=== PATIENT | male | born 1960 | race African-American/Black ===

== ENCOUNTER 2017-12-17 22:35 | Inpatient (IN) | payer OTHER, MEDICAID, SELFPAY ==
[2017-12-17 22:46] VITALS: BP 156/93; PULSE 99; RESP 16; TEMP 37.1; O2SAT 100
--- NOTE | 2017-12-17 23:35 | DI.RAD.S_ITS ---
PROCEDURE: XR ACUTE ABDOMEN SERIES INDICATIONS: Abdominal pain TECHNIQUE: One view chest and two views of the abdomen were acquired. COMPARISON: [facility], CT, CT ANGIO CHEST PE PROTOCOL, 12/18/2017, 2:54. FINDINGS: Surgical changes and devices: None. Chest: Focal pulmonary radiopacities are present bilaterally at the costophrenic sulci, more confluent on the right than on the left. Abdomen: Bowel gas pattern is normal. No suspicious calcifications. Visualized solid organ contours appear normal. Bones: No suspicious bony lesions. IMPRESSION: Bilateral basilar pulmonary radiopacities on the more confluent on the right. These findings are suspicious for infection, aspiration, or atelectasis. Dictated by: Aleisha Singleton M.D. on 12/18/2017 at 8:06 Approved by: Aleisha Singleton M.D. on 12/18/2017 at 8:07
[2017-12-18] VITALS (27 sets, daily range): BP systolic 130–170; BP diastolic 74–99; PULSE 76–125; RESP 18–46; TEMP 37.2–37.5; O2SAT 85–100; BMI 23.0
[2017-12-18] MEDS: ONDANSETRON 4 MG/2 ML INJ IV (00:05)
[2017-12-18] MEDS: SODIUM CHLORIDE 0.9% 1,000 ML 150 ML IV ×4 (00:05→21:58)
[2017-12-18] MEDS: HYDROMORPHONE 0.5 MG INJ IV ×2 (00:05→06:14)
--- NOTE | 2017-12-18 00:25 | DI.CT.S_ITS ---
PROCEDURE: CT ABDOMEN PELVIS W CON INDICATIONS: severe R sided abdominal pain, guarding TECHNIQUE: After the administration of intravenous contrast, 5 mm thick sections acquired from the diaphragm to the symphysis. 5 mm coronal and sagittal reformats were acquired. For radiation dose reduction, the following was used: automated exposure control, adjustment of mA and/or kV according to patient size. COMPARISON: [facility], CT, CT ANGIO CHEST PE PROTOCOL, 12/18/2017, 2:54. FINDINGS: Image quality: Excellent. ABDOMEN: Lung bases: Focal consolidation is present at the right lung base, superimposed on underlying emphysematous changes. A 4 mm pulmonary nodule is also present at the medial right lung base (series 3, image 3). Probable platelike atelectasis is present at the left lung base. These findings correspond to the chest x-ray findings dated 12/17/17. No pleural effusion. Heart is normal size. Please see detailed description of the pulmonary arterial findings on the associated CT pulmonary arteriogram. Solid organs: Liver is normal in size and enhancement. Multiple heterogeneous gallstones are present within the gallbladder fundus suggesting the presence of cholesterol stones. No gallbladder wall thickening or pericholecystic fluid. Biliary system is non dilated. Pancreas enhances normally. Spleen is normal in size and enhancement. No adrenal nodules. Kidneys demonstrate normal size and enhancement, without hydronephrosis. A 2 mm nonobstructing calculus is present within the left kidney. Peritoneum and bowel: Bowel loops demonstrate normal wall thickness and caliber. The appendix is not visualized; however there is no discrete right lower quadrant fluid or fat stranding to suggest acute appendicitis. No free fluid or air. Nodes and vessels: No retroperitoneal or mesenteric adenopathy by size criteria. Aorta and inferior vena cava are normal in size. Dense atheromatous calcifications are present throughout the abdominal aorta. Miscellaneous: No ventral hernias. PELVIS: Genitourinary: Bladder wall thickness is normal. Miscellaneous: No inguinal hernias or adenopathy. Bones: No suspicious bony lesions. No vertebral body compression fractures. IMPRESSION: 1. No acute intra-abdominal findings. The appendix is not visualized; however there no ancillary findings to suggest acute appendicitis. 2. Nonobstructive nephrolithiasis. 3. Focal consolidation at the right lung base suggesting aspiration/infection. Please see detailed description of the pulmonary arterial findings on the associated CT angiogram of the chest. These airspace opacities could also be associated with pulmonary infarction. These findings are concordant with the overnight interpretation. Dictated by: Aleisha Singleton M.D. on 12/18/2017 at 8:09 Approved by: Aleisha Singleton M.D. on 12/18/2017 at 8:16
[2017-12-18 00:26] LABS: Add Manual Diff / Slide Review NO; Basophils Percent Auto 0.4 % (0-2); Eosinophils Percent Auto 1.3 % (2-4); Hematocrit 38.2 % (41-53); Lymphocytes Percent Auto 21.2 % (25-40); Mean Corpuscular HGB Conc 34.2 % (30-36); Mean Corpuscular Hemoglobin 32.3 PG (26-34); Mean Corpuscular Volume 94.5 fL (80-100); Neutrophils Absolute Auto 7200 /uL (3000-5900); Neutrophils Percent Auto 67.1 % (50-75); Platelet Count 176 X10^3/uL (150-400); Red Blood Cell Count 4.04 X10^6/uL (4.5-5.9); Red Cell Distribution Width 14.1 % (11.6-14.8); White Blood Cell Count 10.7 X10^3/uL (4.5-11.0)
[2017-12-18 00:29] LABS: Alanine Aminotransferase 23 IU/L (21-72); Albumin 4.2 g/dL (3.5-5.0); Albumin Globulin Ratio 1.2 (1.0-2.8); Alkaline Phosphatase 104 U/L (38-126); Aspartate Aminotransferase 22 IU/L (17-59); Bilirubin Total 0.4 mg/dL (0.2-1.3); Blood Urea Nitrogen 13 mg/dL (9-20); Calcium 9.2 mg/dL (8.4-10.2); Carbon Dioxide 24 mmol/L (22-32); Chloride 106 mmol/L (98-107); Estimated Glomerular Filt Rate > 60.0 mL/min (>60); Globulin 3.6 g/dL (1.7-4.1); Glucose 104 mg/dL (70-100); HEMOLYSIS < 15 (0-50); Lipase 275 U/L (23-300); Potassium 3.8 mmol/L (3.4-5.1); Sodium 143 mmol/L (137-145); Total Protein 7.8 g/dL (6.3-8.2)
[2017-12-18 00:33] LABS: Bacteria Urine None Seen; Culture Indicated Urine Cult Not Indicated; Hyaline Casts Urine 0-1/LPF; RBC Urine 5-10/HPF (0-5/HPF); WBC Urine None Seen (0-5/HPF)
--- NOTE | 2017-12-18 00:36 | ED.ABDPAIN ---
HPI - Abdominal Pain General Chief Complaint: Abdominal Pain Stated Complaint: LOTS OF PAIN RT SIDE Time Seen by Provider: 12/17/17 23:00 Source: patient Mode of arrival: ambulatory Limitations: no limitations History of Present Illness HPI narrative: Patient presents to the emergency department today with a chief complaint of severe right-sided abdominal pain which is worse when he moves and improves with rest. He denies associated symptoms such as fever or chills nor nausea or vomiting. His last bowel movement was this evening. He denies any history of the same. He denies any injury or recent travel. He has had some cough and complains of R sided rib pain as well. Patient has HIV and is treated with Triumeq by his PCP in [place] complaint: abdominal pain Onset (ago): day(s) Pain Consistency: constant Location: RUQ, RLQ and R flank Severity: severe Quality: cramping, stabbing and aching Radiation: none Migration to: no migration Relieving factors: rest Exacerbating factors: movement Associated symptoms: denies other symptoms Related Data Allergies Allergy/AdvReac Type Severity Reaction Status Date / Time No Known Drug Allergies Allergy Verified 12/17/17 22:46 Review of Systems Review of Systems All systems reviewed & are unremarkable except as noted in HPI and below Constitutional Denies chills, Denies fever(s), Denies lethargy and Denies weakness Eyes Denies change in vision, Denies eye discharge, Denies irritation and Denies loss of vision ENT Ears, Nose, Mouth, and Throat: Denies change in voice, Denies neck pain and Denies sore throat Cardiovascular Denies chest pain, Denies irregular heart rhythm, Denies lightheadedness, Denies palpitations, Denies dyspnea, Denies dyspnea on exertion and Denies orthopnea Respiratory Denies cough, Denies dyspnea, Denies dyspnea on exertion and Denies wheezing Gastrointestinal Gastrointestinal: Reports abdominal pain, Denies change in bowel habits, Denies diarrhea, Denies nausea and Denies vomiting Genitourinary Denies hematuria, Denies flank pain, Denies urinary incontinence and Denies urinary urgency Musculoskeletal Denies neck pain Integumentary/Breasts Denies pruritus, Denies erythema, Denies rash and Denies wounds Neurologic Denies confusion, Denies loss of vision and Denies weakness Psychiatric Denies anxiety, Denies confusion, Denies depression, Denies homicidal ideation and Denies suicidal ideation Endocrine Denies palpitations Hematologic/Lymphatic Denies easy bruising Allergic/Immunologic Denies wheezing [facility] Medical History HIV disease (Acute) Hypertension (Acute) Social History Smoking Status: Current every day smoker Exam Narrative Exam Narrative: Pleasant 57-year-old male in obvious discomfort, clutching his right flank Initial Vital Signs Initial Vital Signs: Vital Signs Temperature 98.8 F 12/17/17 22:46 Pulse Rate 99 H 12/17/17 22:46 Respiratory Rate 16 12/17/17 22:46 Blood Pressure 156/93 H 12/17/17 22:46 Pulse Oximetry 100 12/17/17 22:46 Const General: cooperative, well developed and in distress Nutritional Appearance: well nourished Orientation: alert, awake, oriented x3 and not confused HENMT Head: normocephalic and atraumatic Ears: external ears normal and TM's normal bilaterally Nose: external nose normal and No nasal discharge Face and sinus: sinuses nontender, face symmetric, no sinus tenderness and No dry mucous membranes Mouth: oral mucosae normal and moist mucous membranes Teeth and gingiva: dentition normal Throat: tonsils normal and uvula midline Eyes General: appearance normal, both eyes and all related structures Eyelids: eyelids normal Conjunctivae: conjunctivae normal Sclera: sclerae normal Pupils: PERRL EOM: EOM intact bilaterally Neck Neck: normal visual inspection, trachea midline, No lymphadenopathy, No midline deformity and No JVD Lymphatic: No lymphedema Chest Chest: normal inspection of the chest Resp Effort & Inspection: normal respiratory effort, able to speak in complete sentences, no respiratory distress and no use of accessory muscles Auscultation: clear to auscultation bilaterally, no rales, no rhonchi and no wheezes Cardio Rate: regular rate Rhythm: regular rhythm Heart Sounds: no click, no gallops, no murmurs and no rubs Pulses: normal peripheral pulses GI Inspection: non-distended Palpation: soft, no hepatosplenomegaly, guarding, No pulsatile mass and tender Auscultation: normal bowel sounds Back/Spine/Pelvis Back: No CVA tenderness Cervical Spine: cervical ROM normal and No pain with cervical ROM Thoracic/Lumbar Spine: thoracic and lumbar spine normal to inspection Skin General: no rashes or lesions noted, No jaundice and No petechiae Neuro General: alert, oriented x3, gait normal and no focal motor deficits Speech: speech normal Extrem General: full ROM, no clubbing, cyanosis or edema, no pedal edema and no calf tenderness Psych Appearance: well kempt Mental Status: mental status grossly normal Attitude: cooperative Thought Content: normal and suicidality Judgment: judgment good Course Orders Ordered: ED Orders 12/17/17 23:34 Complete Blood Count AUTO DIFF Stat Comprehensive Metabolic Panel Stat Lipase Stat 12/17/17 23:35 XR acute abdomen series Stat 12/18/17 EKG-12 Lead Routine 12/18/17 00:05 B Type Natriuretic Peptide Stat Procalcitonin Stat Troponin I Stat 12/18/17 00:06 Urine Microscopic Stat 12/18/17 00:25 CT abdomen pelvis w con Stat 12/18/17 02:47 CT angio chest PE protocol Stat Sodium Chloride (Normal Saline 0.9%) 1,000 mls @ 150 mls/hr IV CONT NATALI Last Infusion: 12/18/17 05:04 Dose: 150 mls/hr Admin: 12/18/17 02:32 Dose: 999 mls/hr Infusion: 12/18/17 02:32 Dose: 150 mls/hr Infusion: 12/18/17 02:29 Dose: 150 mls/hr Admin: 12/18/17 00:05 Dose: 150 mls/hr Ondansetron HCl (Zofran) 4 mg IV Q4HR PRN PRN Reason: Nausea And Vomiting Last Admin: 12/18/17 00:05 Dose: 4 mg Discontinued Medications Enoxaparin Sodium (Lovenox) 65 mg 1 mg/kg (65 mg) SUBCUT NOW ONE Stop: 12/18/17 04:02 Last Admin: 12/18/17 04:41 Dose: 65 mg Hydromorphone HCl (Dilaudid) 0.5 mg IV NOW ONE Stop: 12/17/17 23:36 Last Admin: 12/18/17 00:05 Dose: 0.5 mg Reevaluation(s) Reevaluation #1: Patient resting comfortably. I had a lengthy the bedside discussion with the patient about risks and benefits of adding an additional CT scan with IV contrast on top of the abdomen and pelvis that was already ordered. We talked about additional exposure to radiation as well as a 2nd dose of IV contrast. His baseline creatinine is 1 with a GFR greater than 60. He was given a 500 cc fluid bolus in between exams. I told him the risk of radiation exposure increases the likelihood of cancer years down the road and repeat IV contrast runs the risk of kidney injury, failure or even the need for. I did mention that we attempt to minimize this risk by administration of fluids. He understands this risk and agrees with the study Vital Signs - 8 hr 12/17/17 22:46 12/18/17 02:27 12/18/17 03:28 Temperature 98.8 F Pulse Rate 99 H 79 84 Respiratory Rate 16 18 26 H Blood Pressure 156/93 H Blood Pressure [Left Arm] 132/87 H 138/76 H Pulse Oximetry 100 100 99 12/18/17 05:01 12/18/17 05:12 Temperature Pulse Rate 88 Respiratory Rate 28 H Blood Pressure Blood Pressure [Left Arm] 149/83 H Pulse Oximetry 100 MDM - Abdominal Pain Differential Diagnosis Differential diagnosis: Likely abdominal pain, acute appendicitis, calculus of kidney, constipation, diverticulitis, endometriosis, gastroenteritis, pancreatitis and small bowel obstruction Medical Records Attestation: I reviewed the patient's medical records. Lab Data Attestation: I reviewed the patient's lab results. Result diagrams: 12/18/17 00:05 12/18/17 00:05 Lab Results 12/18/17 12/18/17 12/18/17 Range/Units 00:05 00:05 00:05 WBC 10.7 (4.5-11.0) X10^3/uL RBC 4.04 L (4.5-5.9) X10^6/uL Hgb 13.0 L (13.5-17.5) g/dL Hct 38.2 L (41-53) % MCV 94.5 (80-100) fL MCH 32.3 (26-34) PG MCHC 34.2 (30-36) % RDW 14.1 (11.6-14.8) % Plt Count 176 (150-400) X10^3/uL Neut % (Auto) 67.1 (50-75) % Lymph % (Auto) 21.2 L (25-40) % [place] % (Auto) 10.0 (3-14) % Eos % (Auto) 1.3 L (2-4) % Baso % (Auto) 0.4 (0-2) % Neut # (Auto) 7200 H (1291-3925) /uL Sodium 143 (137-145) mmol/L Potassium 3.8 (3.4-5.1) mmol/L Chloride 106 (98-107) mmol/L Carbon Dioxide 24 (22-32) mmol/L BUN 13 (9-20) mg/dL Creatinine 1.00 (0.66-1.25) mg/dL Estimated GFR > 60.0 (>60) mL/min BUN/Creatinine Ratio 13.0 (6-22) Glucose 104 H (70-100) mg/dL Calcium 9.2 (8.4-10.2) mg/dL Total Bilirubin 0.4 (0.2-1.3) mg/dL AST 22 (17-59) IU/L ALT 23 (21-72) IU/L Alkaline Phosphatase 104 (38-126) U/L Troponin I < 0.012 (0.01-0.034) ng/mL B-Natriuretic Peptide (<29.3) Total Protein 7.8 (6.3-8.2) g/dL Albumin 4.2 (3.5-5.0) g/dL Globulin 3.6 (1.7-4.1) g/dL Albumin/Globulin Ratio 1.2 (1.0-2.8) Lipase 275 (23-300) U/L Procalcitonin (<0.5) ng/mL Urine RBC (0-5/HPF) Urine WBC (0-5/HPF) Urine Bacteria (None) Hyaline Casts (None) Ur Culture Indicated? Micro UA Comment 12/18/17 12/18/17 12/18/17 Range/Units 00:05 00:05 00:06 WBC (4.5-11.0) X10^3/uL RBC (4.5-5.9) X10^6/uL Hgb (13.5-17.5) g/dL Hct (41-53) % MCV (80-100) fL MCH (26-34) PG MCHC (30-36) % RDW (11.6-14.8) % Plt Count (150-400) X10^3/uL Neut % (Auto) (50-75) % Lymph % (Auto) (25-40) % [place] % (Auto) (3-14) % Eos % (Auto) (2-4) % Baso % (Auto) (0-2) % Neut # (Auto) (1600-1909) /uL Sodium (137-145) mmol/L Potassium (3.4-5.1) mmol/L Chloride (98-107) mmol/L Carbon Dioxide (22-32) mmol/L BUN (9-20) mg/dL Creatinine (0.66-1.25) mg/dL Estimated GFR (>60) mL/min BUN/Creatinine Ratio (6-22) Glucose (70-100) mg/dL Calcium (8.4-10.2) mg/dL Total Bilirubin (0.2-1.3) mg/dL AST (17-59) IU/L ALT (21-72) IU/L Alkaline Phosphatase (38-126) U/L Troponin I (0.01-0.034) ng/mL B-Natriuretic Peptide < 29.3 (<29.3) Total Protein (6.3-8.2) g/dL Albumin (3.5-5.0) g/dL Globulin (1.7-4.1) g/dL Albumin/Globulin Ratio (1.0-2.8) Lipase (23-300) U/L Procalcitonin < 0.05 (<0.5) ng/mL Urine RBC 5-10/hpf H (0-5/HPF) Urine WBC None seen (0-5/HPF) Urine Bacteria None seen (None) Hyaline Casts 0-1/lpf (None) Ur Culture Indicated? Cult not indicated Micro UA Comment Not Reportable Imaging Data CT scan - abdomen: My impression: Radiologist's impression: Incidental note made of lack of filling of right-sided pulmonary artery is concerning for pulmonary embolism with possibility of pulmonary infarction. Concomitantly infiltrates possibly over chronic lung disease also considered. Fatty liver. Cholelithiasis without findings to suggest acute cholecystitis. CT scan - chest: Radiologist's impression: Patient is positive for pulmonary emboli with large emboli in the right pulmonary artery with extensive RLL consolidation vs. infarct ECG Data Attestation: I personally reviewed and interpreted this ECG as follows: MDM Narrative Medical decision making narrative: Patient has large PE with infarct vs. consolidation. He has no cough, fever, or chills and procalcitonin is normal suggesting it is more likely infarction. EKG shows no sign of strain and trop/BNP are normal. Dr. Thorpe happy to keep patient here Discharge Plan Departure Patient Disposition: Admitted As Inpatient Clinical Impression: Pulmonary embolism with infarction Admit Date/Time: 12/18/17 05:36 Admit Provider: Charli Thorpe
--- NOTE | 2017-12-18 02:28 | PC.NURSE ---
Pt reports pain at 7/10 at this time and tolerable and declines pain medication. Discussed plan for PE CT test. Pt verbalized the understanding.
[2017-12-18] MEDS: SODIUM CHLORIDE 0.9% 1,000 ML 999 ML IV (02:32)
--- NOTE | 2017-12-18 02:47 | DI.CT.S_ITS ---
PROCEDURE: CT ANGIO CHEST PE PROTOCOL INDICATIONS: lack of filling of RLL arteries on CT abd/pelvis TECHNIQUE: After the administration of intravenous contrast, 2 mm thick sections acquired from the pulmonary apices to the posterior costophrenic angles. 3-dimensional maximum intensity projection (MIP) coronal and sagittal reformats were then acquired through the thorax. For radiation dose reduction, the following was used: automated exposure control, adjustment of mA and/or kV according to patient size. COMPARISON: None. FINDINGS: Image quality: Excellent. Pulmonary arteries: An obstructing pulmonary embolus is present within the inferior segmental and subsegmental branches of the right lower lobe. No other pulmonary emboli. Lungs and pleura: There is severe centrilobular emphysema with an apical predominance. Consolidative pulmonary radiopacities are present the right lung base. Please like atelectasis is present left lung base. No pleural effusion or pneumothorax. Mediastinum: Heart size is normal, without pericardial effusion. No mediastinal or hilar adenopathy. Thoracic aorta is normal in caliber and enhancement. Esophagus is normal in caliber, without hiatal hernia. Bones and chest wall: No suspicious bony lesions. Ribs and thoracic spine appear intact throughout. Thyroid gland is unremarkable. No axillary or supraclavicular adenopathy. Abdomen: Visualized upper abdominal solid organs appear normal in the early arterial phase of enhancement. IMPRESSION: 1. Occlusive segmental and subsegmental pulmonary embolus of the inferior right lower lobe. 2. Consolidative airspace opacities at the right lung base. Although these findings may be associated with aspiration or infection, pulmonary infarct could also be considered in the differential. These findings were discussed with Dr. Mitchell by the overnight radiologist at 3:57 AM on 12/18/17. Dictated by: Aleisha Singleton M.D. on 12/18/2017 at 8:21 Approved by: Aleisha Singleton M.D. on 12/18/2017 at 8:23
--- NOTE | 2017-12-18 03:30 | PC.NURSE ---
Pt declines pain med at this time upon returning from CT. completed 500ml of NS bolus prior to CT and rate changed to 150ml/hr. noticed pt breathing-grunting with RR 24-26/min but denies sob, dyspnea. pt placed on cont cardiac and o2 monitor. discussed CT test result timeline
[2017-12-18 04:29] LABS: Troponin I < 0.012 ng/mL (0.01-0.034)
[2017-12-18 04:32] LABS: B Type Natriuretic Peptide < 29.3 (<29.3)
[2017-12-18] MEDS: ENOXAPARIN 80 MG/0.8 ML SYRINGE 65 MG SUBCUT ×2 (04:41→17:17)
[2017-12-18 05:31] LABS: Procalcitonin < 0.05 ng/mL (<0.5)
--- NOTE | 2017-12-18 06:23 | PC.NURSE ---
After pt voiding while standing and got back to bed, noticed pt has increased RR with grunting and HR upto 100 bpm. Pt denies sob and dyspnea but state from pain. Pt agrees to take pain medication, medicated pt with 0.5mg IV dilaudid. Shortly after pt's HR and RR returned to baseline and states feeling better.
--- NOTE | 2017-12-18 07:28 | P.HP_ITS ---
History of Present Illness Chief complaint: LOTS OF PAIN RT SIDE Narrative: Olu Weinstein is a 57 year old black male who presents with chest pain. Workup in the ER revealed that he had a large pulmonary embolism with infarct. He appears to have no bruit recent risk factors he has had no travel or prolonged immobility no history of blood clotting disorder or any family history of this. Patient History Medical History Depression (Acute) HIV disease (Chronic) Hypertension (Chronic) Family & Social History Tobacco & Substance use: Smoking Status Current every day smoker alcohol intake frequency 0-2 drinks per day Substance Use Type does not use Meds Allergies Allergy/AdvReac Type Severity Reaction Status Date / Time No Known Drug Allergies Allergy Verified 12/17/17 22:46 Review of Systems Review of Systems All systems reviewed & are unremarkable except as noted in HPI and below Exam Vital Signs (past 8 hours): Vital Signs - 8 hr 3 12/18/17 02:27 12/18/17 03:28 12/18/17 03:30 Temperature Pulse Rate 79 84 76 Respiratory Rate 18 26 H 24 Blood Pressure Blood Pressure [Left Arm] 132/87 H 138/76 H 130/80 H Pulse Oximetry 100 99 3 12/18/17 05:01 12/18/17 05:12 12/18/17 06:05 Temperature Pulse Rate 88 90 Respiratory Rate 28 H 26 H Blood Pressure Blood Pressure [Left Arm] 149/83 H Pulse Oximetry 100 3 12/18/17 06:25 12/18/17 06:56 Temperature 99.0 F Pulse Rate 81 90 Respiratory Rate 24 22 Blood Pressure 141/83 H Blood Pressure [Left Arm] Pulse Oximetry 100 93 Pulse Oximetry 93 Oxygen Delivery Method Nasal Cannula Oxygen Flow Rate 2 Narrative Exam Narrative: Middle-aged black male in obvious discomfort and pain HEENT exam unremarkable Neck is supple no JVD no bruit Lungs mild scattered rhonchi in the right lung bullock Heart tachycardic Abdomen soft nontender Lower extremities no edema no signs tenderness or DVT in the lower extremities Neuro exam awake alert speech normal no focal deficits Skin moist and warm Objective Labs Result Diagrams: 12/18/17 00:05 12/18/17 00:05 Labs: Laboratory Results - last 24 hr 12/18/17 12/18/17 12/18/17 00:05 00:05 00:05 WBC 10.7 RBC 4.04 L Hgb 13.0 L Hct 38.2 L MCV 94.5 MCH 32.3 MCHC 34.2 RDW 14.1 Plt Count 176 Neut % (Auto) 67.1 Lymph % (Auto) 21.2 L [place] % (Auto) 10.0 Eos % (Auto) 1.3 L Baso % (Auto) 0.4 Neut # (Auto) 7200 H Sodium 143 Potassium 3.8 Chloride 106 Carbon Dioxide 24 BUN 13 Creatinine 1.00 Estimated GFR > 60.0 BUN/Creatinine Ratio 13.0 Glucose 104 H Calcium 9.2 Total Bilirubin 0.4 AST 22 ALT 23 Alkaline Phosphatase 104 Troponin I < 0.012 B-Natriuretic Peptide Total Protein 7.8 Albumin 4.2 Globulin 3.6 Albumin/Globulin Ratio 1.2 Lipase 275 Procalcitonin Urine RBC Urine WBC Urine Bacteria Hyaline Casts Ur Culture Indicated? Micro UA Comment 12/18/17 12/18/17 12/18/17 00:05 00:05 00:06 WBC RBC Hgb Hct MCV MCH MCHC RDW Plt Count Neut % (Auto) Lymph % (Auto) [place] % (Auto) Eos % (Auto) Baso % (Auto) Neut # (Auto) Sodium Potassium Chloride Carbon Dioxide BUN Creatinine Estimated GFR BUN/Creatinine Ratio Glucose Calcium Total Bilirubin AST ALT Alkaline Phosphatase Troponin I B-Natriuretic Peptide < 29.3 Total Protein Albumin Globulin Albumin/Globulin Ratio Lipase Procalcitonin < 0.05 Urine RBC 5-10/hpf H Urine WBC None seen Urine Bacteria None seen Hyaline Casts 0-1/lpf Ur Culture Indicated? Cult not indicated Micro UA Comment Not Reportable Assessment & Plan Plan: Plan: One. Acute pulmonary embolism with pulmonary infarct without any clear risk factors. He is on medication for HIV and uncertain if these medications increase the risk we can certainly do the resurgence C. The patient will be admitted to the hospital due to the size of the infarct and the size of the pulmonary embolism. He will be placed on Lovenox initially and supplemental oxygen he is hemodynamically stable currently. Plan to also initiate warfarin therapy 2. History of hypertension plan to continue his home meds 3. HIV continue his home medications.
--- NOTE | 2017-12-18 08:05 | CM.DPC ---
DCP Assessment: 12/18/2017 Case reviewed, EMR reviewed and met with patient. Pt is a 57 yo male admitted as INpatient for Right-sided pain (large PE with Infarct) under the care of the Hospitalist team. PCP: LETICIA Connor at [facility] in [place] Primary payor is: [employer] Emergency Contact: Patient identifies his sister in [place] as his emerg contact: Leandra Almaraz, cell [phone] ([facility] [place] of this via email for inclusion on face sheet information.) He states he has no Advance Directives or POA filled out at this time. Met with patient in his room. Introduced self as DCP, explained role and goals of DCP and as pt advocate. Olu verbalized understanding. Pt is found eating breakfast, A&O, very polite and helpful in answering all questions. States he was independent at baseline for all ADLs prior to this hospitalization. He lives in [place] in a [place] local [place]; lives alone and drives his own car. 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 DME: He usually uses no DME, but brought a cane with him to the ER as pain level was so high he needed this assistance to walk. He sees no barriers to discharge back to his home once stable. Plan: Discharge to home once deemed stable. Dee Anglin RN
[2017-12-18] MEDS: HYDROMORPHONE 0.5 MG INJ 1 MG IV ×2 (09:53→17:30)
--- NOTE | 2017-12-18 10:12 | PC.ADMIT ---
[address] Admission Note: The patient,Olu Weinstein,57 y/o, was given written information regarding hospital policies, unit procedures and contact persons. Patient's smoking status: Current every day smoker. Vital Signs - 8 hr 12/18/17 02:27 12/18/17 03:28 12/18/17 03:30 Temperature Pulse Rate 79 84 76 Respiratory Rate 18 26 H 24 Blood Pressure Blood Pressure [Left Arm] 132/87 H 138/76 H 130/80 H Pulse Oximetry 100 99 12/18/17 05:01 12/18/17 05:12 12/18/17 06:05 Temperature Pulse Rate 88 90 Respiratory Rate 28 H 26 H Blood Pressure Blood Pressure [Left Arm] 149/83 H Pulse Oximetry 100 12/18/17 06:25 12/18/17 06:56 Temperature 99.0 F Pulse Rate 81 90 Respiratory Rate 24 22 Blood Pressure 141/83 H Blood Pressure [Left Arm] Pulse Oximetry 100 93 Per Noc shift RN Pt arrived from ed via stretcher at approx 0640. Able to trans from stretcher to bed independently. Steady on feet. This telegraphic typewriter mechanic assumed care of pt at approx 0715. Oriented x3. o2 sats wnl. O2 Sats 88% during admission assessment increased to 97% on 1L NC. Valuables stored in safe. Pt requests to keep rings x7 and earings x7 on his body. Oriented to room and call system. Bed alarm on for safety. Call light within reach.
[2017-12-18] MEDS: OXYCODONE IR 5 MG TABLET PO ×2 (12:38→21:58)
[2017-12-18] MEDS: AMLODIPINE 5 MG TABLET PO (14:20)
[2017-12-18] MEDS: TAMSULOSIN 0.4 MG CAPSULE PO (14:21)
[2017-12-18] MEDS: MULTIVITAMIN 1 TABLET 1 TAB PO (14:21)
--- NOTE | 2017-12-18 14:35 | PC.NURSE ---
PT BECOMES HYPOXIC AND SOB WITH ACTIVITY. DESATS TO MID 80'S. INCREASED OXYGEN TO KEEP ABOVE 92%. THIS GAUGE CHECKER NOTIFIED R.T. FOR EVAL OXYGEN ADJUSTMENT.
[2017-12-18] MEDS: WARFARIN 5 MG TABLET PO (17:17)
--- NOTE | 2017-12-18 22:19 | PC.NURSE ---
Lydia shift- Pt SOB with any acitivity, desats to 80's, wearing venti mask with 9-12L for FiO2 35%. Pt using urinal and urinated in bed, showered, placed new telemetry leads and back to bed. Tolerated shower well, but held venti mask in place so pt could wash self. After shower, given percolone 5mg for 6/10 pain. Bed alarm on for safety, call light in reach.
--- NOTE | 2017-12-19 | DI.US.S_ITS ---
PROCEDURE: US PERIPH VENOUS LOW EXTREM BI INDICATIONS: leg swelling, pulmonary embolism, r/o DVT TECHNIQUE: Real-time imaging, as well as color and pulse Doppler interrogation, were performed of the deep veins of both legs from the inguinal ligament to the popliteal fossa. COMPARISON: None. FINDINGS: The deep veins are normally compressible, and free of intraluminal thrombus. Color and pulse Doppler demonstrate normal phasic intravascular flow. There is normal augmentation response to distal compression maneuver. IMPRESSION: No DVT in the left or right lower extremity. Dictated by: James King M.D. on 12/19/2017 at 12:15 Approved by: James King M.D. on 12/19/2017 at 12:17
[2017-12-19 03:20] VITALS: BP 136/89; PULSE 105; RESP 26; TEMP 37.3; O2SAT 100
[2017-12-19] MEDS: ENOXAPARIN 80 MG/0.8 ML SYRINGE 65 MG SUBCUT ×2 (04:05→16:30)
[2017-12-19 04:18] VITALS: O2SAT 100
[2017-12-19] MEDS: SODIUM CHLORIDE 0.9% 1,000 ML 150 ML IV ×3 (04:42→17:49)
[2017-12-19] MEDS: OXYCODONE IR 5 MG TABLET PO (05:52)
[2017-12-19 08:35] VITALS: BP 161/79; PULSE 109; RESP 24; TEMP 36.9; O2SAT 97
[2017-12-19] MEDS: HYDROMORPHONE 0.5 MG INJ 1 MG IV (08:38)
[2017-12-19] MEDS: TAMSULOSIN 0.4 MG CAPSULE PO (08:47)
--- NOTE | 2017-12-19 09:04 | PM.HP.1 ---
History of Present Illness Date Patient Seen: 12/19/17 Time Patient Seen: 08:30 Chief complaint: LOTS OF PAIN RT SIDE Narrative: Patient History Medical History Depression (Acute) HIV disease (Chronic) Hypertension (Chronic) Family & Social History Social History: household members none Prior Living Arrangements Mobile home Safety & Behavioral: Feels Safe in Current Yes Environment Been Physically Hurt or No Threatened By a Person Suicidal Ideation Description None Suicide Plan Description No Plan Tobacco & Substance use: Tobacco type cigarettes Smoking Status Current every day smoker Smoking packs per day 0.5 alcohol intake former alcohol intake frequency 3 or more drinks per day Substance Use Type does not use Meds Home Medications Medication Instructions Recorded Confirmed Type [id number] 1 tab PO QAM 12/18/17 12/18/17 History [Triumeq] amitriptyline 25 mg PO QAM 12/18/17 12/18/17 History amlodipine 5 mg PO QAM 12/18/17 12/18/17 History mirtazapine 30 mg PO QAM 12/18/17 12/18/17 History mv. min [id number] [AquADEKs] 1 tab PO QAM 12/18/17 12/18/17 History risperidone 1 mg PO QAM 12/18/17 12/18/17 History sertraline 25 mg PO QAM 12/18/17 12/18/17 History tamsulosin 0.4 mg PO QAM 12/18/17 12/18/17 History triamcinolone acetonide 1 ea TOPICAL PRN PRN 12/18/17 12/18/17 History Allergies Allergy/AdvReac Type Severity Reaction Status Date / Time No Known Drug Allergies Allergy Verified 12/17/17 22:46 Exam Vital Signs (past 8 hours): Vital Signs - 8 hr 12/19/17 03:20 12/19/17 04:18 12/19/17 08:35 Temperature 99.1 F 98.5 F Pulse Rate 105 H 109 H Respiratory Rate 26 H 24 Blood Pressure 136/89 H 161/79 H Pulse Oximetry 100 100 97 Pulse Oximetry 97 Fraction of Inspired Oxygen 45 Oxygen Delivery Method Nasal Cannula Oxygen Flow Rate 5 Objective Labs Result Diagrams: 12/18/17 00:05 12/18/17 00:05 Quality VTE Deep Vein Thrombosis/Pulmonary Embolism Present on Admission: Yes
--- NOTE | 2017-12-19 09:08 | P.HP_ITS ---
History of Present Illness Date Patient Seen: 12/19/17 Time Patient Seen: 08:30 Chief complaint: LOTS OF PAIN RT SIDE Narrative: Patient History Medical History Depression (Acute) HIV disease (Chronic) Hypertension (Chronic) Family & Social History Social History: household members none Prior Living Arrangements Mobile home Safety & Behavioral: Feels Safe in Current Yes Environment Been Physically Hurt or No Threatened By a Person Suicidal Ideation Description None Suicide Plan Description No Plan Tobacco & Substance use: Tobacco type cigarettes Smoking Status Current every day smoker Smoking packs per day 0.5 alcohol intake former alcohol intake frequency 3 or more drinks per day Substance Use Type does not use Meds Home Medications Medication Instructions Recorded Confirmed Type [id number]-[id number] 1 tab PO QAM 12/18/17 12/18/17 History [Triumeq] amitriptyline 25 mg PO QAM 12/18/17 12/18/17 History amlodipine 5 mg PO QAM 12/18/17 12/18/17 History mirtazapine 30 mg PO QAM 12/18/17 12/18/17 History mv. min [id number] [AquADEKs] 1 tab PO QAM 12/18/17 12/18/17 History risperidone 1 mg PO QAM 12/18/17 12/18/17 History sertraline 25 mg PO QAM 12/18/17 12/18/17 History tamsulosin 0.4 mg PO QAM 12/18/17 12/18/17 History triamcinolone acetonide 1 ea TOPICAL PRN PRN 12/18/17 12/18/17 History Allergies Allergy/AdvReac Type Severity Reaction Status Date / Time No Known Drug Allergies Allergy Verified 12/17/17 22:46 Exam Vital Signs (past 8 hours): Vital Signs - 8 hr 3 12/19/17 03:20 12/19/17 04:18 12/19/17 08:35 Temperature 99.1 F 98.5 F Pulse Rate 105 H 109 H Respiratory Rate 26 H 24 Blood Pressure 136/89 H 161/79 H Pulse Oximetry 100 100 97 Pulse Oximetry 97 Fraction of Inspired Oxygen 45 Oxygen Delivery Method Nasal Cannula Oxygen Flow Rate 5 Objective Labs Result Diagrams: 12/18/17 00:05 12/18/17 00:05 Quality VTE Deep Vein Thrombosis/Pulmonary Embolism Present on Admission: Yes
--- NOTE | 2017-12-19 10:01 | PM.PN.1 ---
Subjective Date Patient Seen: 12/19/17 Time Patient Seen: 09:00 Interval history: Patient had an episode of shortness of breath and hypoxemia this morning, resolving spontaneously. He reports ongoing right-sided chest pain up to 10/10 intensity, and shortness of breath. Case reviewed with his primary care provider LETICIA BLACKWOOD, who notes that his recent CD4 count was 361 with suppressed viral load on Triumeq. He has been compliant with therapy and has had no recent infections, with a previous history of treated syphilis many years ago. Blood pressure control has been a problem recently and he was switched to losartan. His admission medication list was inaccurate. He is not taking amitriptyline or amlodipine. Instead he is taking losartan 100 mg daily and also taking omeprazole 20 mg daily. Exam Vital Signs (past 8 hours): Vital Signs - 8 hr 12/19/17 03:20 12/19/17 04:18 12/19/17 08:35 Temperature 99.1 F 98.5 F Pulse Rate 105 H 109 H Respiratory Rate 26 H 24 Blood Pressure 136/89 H 161/79 H Pulse Oximetry 100 100 97 Pulse Oximetry 97 Fraction of Inspired Oxygen 45 Oxygen Delivery Method Nasal Cannula Oxygen Flow Rate 5 Narrative Exam Narrative: General: male, diaphoretic, appears uncomfortable, dyspneic with minimal exertion HEENT: Pupils equal round reactive, extraocular movements intact and mucous membranes pink and moist Neck: Supple Lungs: Crackles right lower lung bullock Abdomen: Mild right upper quadrant tenderness, no guarding or rebound, nondistended Extremities: Trace pedal edema, no calf tenderness or swelling Dermatologic: No rash or skin lesions Neurologic: Alert, oriented, full upper and lower motor strength cut, sensation intact, grossly nonfocal exam Objective Labs Result Diagrams: 12/18/17 00:05 12/18/17 00:05 Assessment & Plan Plan: 1. 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 No clear risk factors. His HIV medications are not clearly implicated with pulmonary embolism, though pulmonary embolism incidence is higher in patients with HIV. No recent travel or illnesses or family history of thromboembolism. No evidence of pneumonia clinically. Continue subcutaneous Lovenox. Obtain lower extremity venous Dopplers. Anticipate discharge home on Xarelto 15 mg twice daily for 3 weeks, then 20 mg daily. 2. Acute hypoxic respiratory failure due to 1. Treat with supplemental oxygen. 3. Chest pain due to 1. Start Dilaudid PRE PRESS MANAGER. 4. Hypertension. We will ask nursing to correct his home medication list. Discontinue amlodipine (caused headaches in the past). Start his usual losartan 100 mg daily 12/19/2017. 5. HIV disease. His most recent CD4 count was 361 and he has had suppressed viral loads below the detectable limits of testing for the past few years. Continue routine Triumeq. 6. Disposition. He will need inpatient care for the next 2-3 days until medically stable for discharge. He will need close follow up with his primary care provider LETICIA BLACKWOOD after discharge. Quality VTE Deep Vein Thrombosis/Pulmonary Embolism Present on Admission: Yes
[2017-12-19] MEDS: HYDROMORPHONE PCA 6 MG/30 ML PCA.VIAL IV ×3 (10:43→23:19)
[2017-12-19] MEDS: PANTOPRAZOLE 40 MG TABLET PO (10:43)
[2017-12-19] MEDS: NICOTINE 14 PATCH 14 MG TOP (10:43)
[2017-12-19 11:35] VITALS: O2SAT 95
[2017-12-19 16:00] VITALS: BP 147/86; PULSE 111; RESP 16; TEMP 37.1; O2SAT 98
[2017-12-19 20:00] VITALS: BP 159/85; PULSE 121; RESP 20; TEMP 38.2; O2SAT 98
--- NOTE | 2017-12-19 23:48 | PC.NURSE ---
Lydia shift- Pt requested to have his belongings out of the safe as to give his friend money to go to pt's home and retrieve his medication. Pt friend brought his antiviral medication, and pt took one tab at 2000. Pt takes one dab daily @ 1900. Medication has pt's ID label on bottle and given to RN coordinator. Pt is not on 5L nc for 96-98% SpO2, continues to have SOB with any acitivity and at rest, intermittently coughing up mucusy jose blood. 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 Pt informed not to get up OOB and to use urinals, one on each side of bed. BLE US in AM resulting negative for DVT. RFA NS @ 150 infusing, nicotine patch to left arm. Telemetry in place with ST (122), (123). Pt's belongings are now in closet with clothes. Pt's phone optical manager is in room. Call light in reach and bed alarm.
[2017-12-20] VITALS (8 sets, daily range): BP systolic 135–164; BP diastolic 85–98; PULSE 107–113; RESP 20–28; TEMP 36.6–38.9; O2SAT 94–100
--- NOTE | 2017-12-20 | DI.RAD.S_ITS ---
PROCEDURE: XR CHEST 2V INDICATIONS: fever TECHNIQUE: 2 views of the chest were acquired. COMPARISON: [facility], CT, CT ANGIO CHEST PE PROTOCOL, 12/18/2017, 2:54. [facility], CR, XR ACUTE ABDOMEN SERIES, 12/17/2017, 23:22. FINDINGS: Surgical changes and devices: None. Lungs and pleura: No pleural effusions or pneumothorax. Lungs are abnormal with a pneumonia pattern at the right mid and lower lung, and there is mild asymmetric elevation of the right hemidiaphragm. Mediastinum: Mediastinal contours are normal. Heart size is normal. Bones and chest wall: No suspicious bony abnormalities. Soft tissues appear unremarkable. IMPRESSION: Right mid and lower lung pneumonia pattern, mild elevation of the right hemidiaphragm. A mild component of subpulmonic right pleural effusion may be present currently, but was not seen during CT scanning 12/18/17 when dense pneumonia had been identified at the right lower lobe. With reference to the prior CT the degree of pneumonia at the right lung base appears to have only slightly worsened. Dictated by: Edmar Gary M.D. on 12/20/2017 at 16:21 Approved by: Edmar Gary M.D. on 12/20/2017 at 16:23
[2017-12-20] MEDS: SODIUM CHLORIDE 0.9% 1,000 ML 150 ML IV (00:58)
--- NOTE | 2017-12-20 01:13 | PC.NURSE ---
0020 SPO2 100 % with 5 liters humidified oxygen. RT notified, decreased 02 to 3 liters & sat. 97%. Cont. pulse oximeter placed. Will monitor.
[2017-12-20] MEDS: ENOXAPARIN 80 MG/0.8 ML SYRINGE 65 MG SUBCUT ×2 (04:19→16:39)
[2017-12-20] MEDS: HYDROMORPHONE PCA 6 MG/30 ML PCA.VIAL IV ×2 (05:29→14:30)
[2017-12-20] MEDS: PANTOPRAZOLE 40 MG TABLET PO (06:31)
[2017-12-20] MEDS: SODIUM CHLORIDE 0.9% 1,000 ML 21 ML IV (07:50)
--- NOTE | 2017-12-20 12:33 | PM.PN.1 ---
Subjective Date Patient Seen: 12/20/17 Time Patient Seen: 12:00 Interval history: The patient reports feeling better, with decreased pain in his right flank and right upper quadrant. He notes ongoing shortness of breath with minimal exertion, and continues to cough up small to moderate amounts of blood. Exam Vital Signs (past 8 hours): Vital Signs - 8 hr 12/20/17 06:19 12/20/17 08:26 Temperature 98.3 F 98.2 F Pulse Rate 113 H 107 H Respiratory Rate 24 20 Blood Pressure 146/89 H 161/87 H Pulse Oximetry 97 100 Pulse Oximetry 100 Fraction of Inspired Oxygen 45 Oxygen Delivery Method Nasal Cannula Oxygen Flow Rate 2 Narrative Exam Narrative: General: male, appears comfortable, dyspneic with minimal exertion HEENT: Pupils equal round reactive, extraocular movements intact and mucous membranes pink and moist Neck: Supple Lungs: Crackles right lower lung bullock Abdomen: Mild right upper quadrant tenderness, no guarding or rebound, nondistended Extremities: Trace pedal edema, no calf tenderness or swelling Dermatologic: No rash or skin lesions Neurologic: Alert, oriented, full upper and lower motor strength cut, sensation intact, grossly nonfocal exam Objective Labs Result Diagrams: 12/18/17 00:05 12/18/17 00:05 Assessment & Plan Plan: Assessment/Plan Narrative: 1. 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 No clear risk factors. His HIV medications are not clearly implicated with pulmonary embolism, though pulmonary embolism incidence is higher in patients with HIV. No recent travel or illnesses or family history of thromboembolism. No evidence of pneumonia clinically. Continue subcutaneous Lovenox. Negative lower extremity venous Dopplers. Anticipate discharge home on Xarelto 15 mg twice daily for 3 weeks, then 20 mg daily. Consider outpatient hematology consultation. 2. Acute hypoxic respiratory failure due to 1. Improved. Treat with supplemental oxygen. 3. Chest pain due to 1. Continue Dilaudid FIRE FIGHTER. 4. Hypertension. Continue usual losartan 100 mg daily. 5. HIV disease. His most recent CD4 count was 351 and he has had suppressed viral loads below the detectable limits of testing for the past few years. Continue routine Triumeq. 6. Disposition. He will need inpatient care for the next 1-2 days until medically stable for discharge. He will need close follow up with his primary care provider LETICIA BLACKWOOD after discharge. Sister Ashlee updated by phone per his request. Quality VTE Deep Vein Thrombosis/Pulmonary Embolism Present on Admission: Yes
--- NOTE | 2017-12-20 12:39 | P.PN_ITS ---
Subjective Date Patient Seen: 12/20/17 Time Patient Seen: 12:00 Interval history: The patient reports feeling better, with decreased pain in his right flank and right upper quadrant. He notes ongoing shortness of breath with minimal exertion, and continues to cough up small to moderate amounts of blood. Exam Vital Signs (past 8 hours): Vital Signs - 8 hr 3 12/20/17 06:19 12/20/17 08:26 Temperature 98.3 F 98.2 F Pulse Rate 113 H 107 H Respiratory Rate 24 20 Blood Pressure 146/89 H 161/87 H Pulse Oximetry 97 100 Pulse Oximetry 100 Fraction of Inspired Oxygen 45 Oxygen Delivery Method Nasal Cannula Oxygen Flow Rate 2 Narrative Exam Narrative: General: male, appears comfortable, dyspneic with minimal exertion HEENT: Pupils equal round reactive, extraocular movements intact and mucous membranes pink and moist Neck: Supple Lungs: Crackles right lower lung bullock Abdomen: Mild right upper quadrant tenderness, no guarding or rebound, nondistended Extremities: Trace pedal edema, no calf tenderness or swelling Dermatologic: No rash or skin lesions Neurologic: Alert, oriented, full upper and lower motor strength cut, sensation intact, grossly nonfocal exam Objective Labs Result Diagrams: 12/18/17 00:05 12/18/17 00:05 Assessment & Plan Plan: Assessment/Plan Narrative: 1. 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 Slowly improving with persistent ongoing pain requiring Dilaudid TRANSMITTER CHIEF. No clear risk factors. His HIV medications are not clearly implicated with pulmonary embolism , though pulmonary embolism incidence is higher in patients with HIV. No recent travel or illnesses or family history of thromboembolism. No evidence of pneumonia clinically. Continue subcutaneous Lovenox. Negative lower extremity venous Dopplers. Anticipate discharge home on Xarelto 15 mg twice daily for 3 weeks, then 20 mg daily. Consider outpatient hematology consultation. 2. Acute hypoxic respiratory failure due to 1. Improved. Treat with supplemental oxygen. 3. Chest pain due to 1. Continue Dilaudid TRANSMITTER CHIEF. 4. Hypertension. Continue usual losartan 100 mg daily. 5. HIV disease. His most recent CD4 count was 351 and he has had suppressed viral loads below the detectable limits of testing for the past few years. Continue routine Triumeq. 6. Disposition. He will need inpatient care for the next 1-2 days until medically stable for discharge. He will need close follow up with his primary care provider LETICIA BLACKWOOD after discharge. Sister Ashlee updated by phone per his request. Quality VTE Deep Vein Thrombosis/Pulmonary Embolism Present on Admission: Yes
--- NOTE | 2017-12-20 12:41 | PM.PN.1 ---
Subjective Date Patient Seen: 12/20/17 Time Patient Seen: 12:41 Interval history: Pt reports ongoing difficulty breathing with anxiety. Exam Vital Signs (past 8 hours): Vital Signs - 8 hr 12/20/17 06:19 12/20/17 08:26 Temperature 98.3 F 98.2 F Pulse Rate 113 H 107 H Respiratory Rate 24 20 Blood Pressure 146/89 H 161/87 H Pulse Oximetry 97 100 Pulse Oximetry 100 Fraction of Inspired Oxygen 45 Oxygen Delivery Method Nasal Cannula Oxygen Flow Rate 2 Narrative Exam Narrative: General: male, appears comfortable, dyspneic with minimal exertion Objective Labs Result Diagrams: 12/18/17 00:05 12/18/17 00:05 Assessment & Plan Plan: Assessment/Plan Narrative: 1. 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 No clear risk factors. His HIV medications are not clearly implicated with pulmonary embolism, though pulmonary embolism incidence is higher in patients with HIV. No recent travel or illnesses or family history of thromboembolism. No evidence of pneumonia clinically. Continue subcutaneous Lovenox. Negative lower extremity venous Dopplers. Anticipate discharge home on Xarelto 15 mg twice daily for 3 weeks, then 20 mg daily. Consider outpatient hematology consultation. 2. Acute hypoxic respiratory failure due to 1. Improved. Treat with supplemental oxygen. 3. Chest pain due to 1. 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 4. Hypertension. Continue usual losartan 100 mg daily. 5. HIV disease. His most recent CD4 count was 351 and he has had suppressed viral loads below the detectable limits of testing for the past few years. Continue routine Triumeq. 6. Disposition. He will need inpatient care for the next 1-2 days until medically stable for discharge. He will need close follow up with his primary care provider LETICIA BLACKWOOD after discharge. Sister Ashlee updated by phone per his request. Quality VTE Deep Vein Thrombosis/Pulmonary Embolism Present on Admission: Yes
[2017-12-20] MEDS: LOSARTAN 50 MG TABLET 100 MG PO (12:53)
[2017-12-20] MEDS: TRIUMEQ 600-50-300 1 EACH PO (12:53)
--- NOTE | 2017-12-20 15:25 | PC.NURSE ---
pt requeted to have IV disconnected. Spoke with MD and ok to take off PROVIDER ENROLLMENT SPECIALIST and stop TKO IVF. Pt did not want any oxycodone at this time, will alert staff when wants medication. Pt was satting at 100% on 2L. weaned down to 1L and then to RA, sats on RA were 94-97%. continuous pulse ox continued.
[2017-12-20] MEDS: ACETAMINOPHEN 325 MG TABLET 650 MG PO ×2 (16:39→23:42)
[2017-12-20] MEDS: levoFLOXacin 750 MG/150 ML PIGGYBACK 100 MG IV (17:36)
[2017-12-20] MEDS: OXYCODONE IR 5 MG TABLET PO (20:52)
--- NOTE | 2017-12-20 22:25 | PC.NURSE ---
Fever of 102.[address] Galvin at 1550 of patient's temp of 102.0, new orders given for 2 view xray (done), blood cultures, Tylenol and IV Levaquin. All orders completed in that order. When patient taken down for xray via wheelchair, on 5L O2 NC. At time of transfer into wheelchair he became observably SOB, saying I can't breathe. Respirations 30/minute, O2 sat 99%. O2 increased from 2L to 5L at that time. Back in 15 minutes, back into bed. HR 135, regular rhythm, very SOB, resps 30/minute. 5L O2 sat 94%. Instructed bed rest until less SOB. 10 minutes later respirations were relaxed at 20/minute, O2 sat 100% Turned O2 down to 3L at that time. Sats maintaining 94-99% while resting in bed. Able to use urinal, was incontinent x 1 while down in xray, linens changed and partial bed bath given.
[2017-12-21] VITALS (7 sets, daily range): BP systolic 135–192; BP diastolic 78–97; PULSE 103–116; RESP 18–24; TEMP 36.7–37.7; O2SAT 94–99
[2017-12-21] MEDS: ENOXAPARIN 80 MG/0.8 ML SYRINGE 65 MG SUBCUT (03:05)
[2017-12-21] MEDS: OXYCODONE IR 5 MG TABLET PO ×2 (03:06→10:24)
[2017-12-21] MEDS: PANTOPRAZOLE 40 MG TABLET PO (06:28)
[2017-12-21] MEDS: LOSARTAN 50 MG TABLET 100 MG PO (08:15)
[2017-12-21] MEDS: MULTIVITAMIN 1 TABLET 1 TAB PO (08:15)
[2017-12-21] MEDS: TRIUMEQ 600-50-300 1 EACH PO (08:15)
--- NOTE | 2017-12-21 11:24 | PM.PN.1 ---
Subjective Date Patient Seen: 12/21/17 Time Patient Seen: 09:00 Interval history: The patient reports feeling better, though with persistent right flank pain not adequately controlled with oral hydrocodone. He had a fever to 102? yesterday. He was started on antibiotics and blood cultures obtained. ?I feel like I have pneumonia?. Exam Vital Signs (past 8 hours): Vital Signs - 8 hr 12/21/17 03:27 12/21/17 07:30 12/21/17 09:37 Temperature 98.1 F 98.7 F Pulse Rate 104 H 103 H Respiratory Rate 24 18 Blood Pressure 141/78 H 157/82 H Pulse Oximetry 99 99 96 Pulse Oximetry 96 Fraction of Inspired Oxygen 28 Oxygen Delivery Method Nasal Cannula Oxygen Flow Rate 2 Narrative Exam Narrative: General: male, appears comfortable, appears weak, dyspneic with minimal exertion HEENT: Pupils equal round reactive, extraocular movements intact and mucous membranes pink and moist Neck: Supple Lungs: Crackles right lower lung bullock Abdomen: Mild right upper quadrant tenderness, no guarding or rebound, nondistended Extremities: Trace pedal edema, no calf tenderness or swelling Dermatologic: No rash or skin lesions Neurologic: Alert, oriented, full upper and lower motor strength cut, sensation intact, grossly nonfocal exam Objective Labs Result Diagrams: 12/18/17 00:05 12/18/17 00:05 Assessment & Plan Plan: Assessment/Plan Narrative: 1. 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 Slowly improving with persistent ongoing pain requiring oral hydrocodone with breakthrough IV Dilaudid. No clear risk factors. His HIV medications are not clearly implicated with pulmonary embolism, though pulmonary embolism incidence is higher in patients with HIV. No recent travel or illnesses or family history of thromboembolism. Negative lower extremity Dopplers. Stop subcutaneous Lovenox 12/21/2017 and switched to oral Xarelto 15 mg twice daily for planned 3 weeks then 20 mg daily. Consider outpatient hematology consultation. 2. Probable right lower lobe pneumonia. This is been equivocal given evidence of pulmonary infarct and lack of prodrome will symptoms to suggest pneumonia, and fever may be due to pulmonary infarct versus possible pneumonia developing as a result pulmonary infarct, regardless given fever to 102 on 12/20/2017, he was started on Levaquin at that time and will continue for a 7 day course. 3. Acute hypoxic respiratory failure due to 1 and 2. Improved. Treat with supplemental oxygen. 4. Chest pain due to 1. 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 5. Hypertension. Mildly hypertensive. Continue to monitor. Continue usual losartan 100 mg daily. 6. HIV disease. His most recent CD4 count was 351 and he has had suppressed viral loads below the detectable limits of testing for the past few years. Continue routine Triumeq. 7. Chronic tobacco use. Cessation is advised. 8. Disposition. He will need inpatient care for the next 1-2 days until medically stable for discharge. He will need close follow up with his primary care provider LETICIA BLACKWOOD after discharge. Sister Ashlee updated by phone per his request. Quality VTE Deep Vein Thrombosis/Pulmonary Embolism Present on Admission: Yes
[2017-12-21] MEDS: HYDROMORPHONE 2 MG INJ 1 MG IV ×3 (12:03→22:43)
--- NOTE | 2017-12-21 14:41 | PT.IIE ---
Current Diagnoses Other pulmonary embolism without acute cor pulmonale (12/18/17) Medical History (Last Updated 12/18/17 @ 07:26 by Cahrli Thorpe MD) Depression (Acute) HIV disease (Chronic) Hypertension (Chronic) Physical Therapy Inpatient Evaluation/Re-Eval M1 PT/OT-IP Prior Functional Status Start: 12/21/17 14:29 Freq: NEEDED Status: Active Protocol: Document 12/21/17 14:31 AB (Rec: 12/21/17 14:41 AB [id number]) Medical Review Prior Functional Status Medical History Reviewed Yes Mobility and Gait pt stated that he is independent with all mobilities and ambulation without AD Social History Household Members none Living Arrangements Mobile home Number of Stairs To Enter/Railing? pt lives in a trailer and has 2 steps to enter without rails Home Environment Standard Height Toilet Walk in Shower Home Equipment Straight Cane Grab Bars Near Toilet Grab Bars In Shower Additional Social History Comment pt stated that there are friends/family that checks on him and can have a friend to come in to assist him. M2 PT-IP Current Condition Start: 12/21/17 14:29 Freq: NEEDED Status: Active Protocol: Document 12/21/17 14:31 AB (Rec: 12/21/17 14:41 AB [id number]) Physical Therapy Current Condition Current Condition Evaluation Date 12/21/17 Treatment Diagnosis pulmonay embolism with infarct ; difficulty in walking Onset Date 12/18/17 Precautions Other Precautions (+) HIV; O2 sat M3 PT-IP Subjective Start: 12/21/17 14:29 Freq: NEEDED Status: Active Protocol: Document 12/21/17 14:31 AB (Rec: 12/21/17 14:41 AB [id number]) Subjective Physical Therapy Visit Type Type Initial Evaluation Visit Start Time 14:00 Visit Stop Time 14:30 Total Visit Minutes 30 Number of AFFILIATE MARKETING COORDINATOR Visits 0 Physical Therapy Visit Comments Patient Comments pt agreeable to do therapy Therapy Pain Assessment Pain When Pain Assessed At Rest Pain Present Pain Present Pain Reported Location Right Ribs Intensity 6 Scale Used Numeric (1 - 10) M4 PT-IP Mobility and Gait Start: 12/21/17 14:29 Freq: NEEDED Status: Active Protocol: Document 12/21/17 14:31 AB (Rec: 12/21/17 14:41 AB [id number]) PT-Bed Mobility Assessment Sit to Supine Sit to Supine Standby Assistance PT-Transfer Assessment Sit to and From Stand Sit to and from Stand Minimal Assistance Equipment Transfer Assistive Device Gait Belt Front Wheeled Walker Comments Mobility Comments decrease in O2 sat during mobility with reading of 66% with sit to supine. cued pt with deep breathing and O2 sat increased to 83% and after a few seconds to 92% Gait Assessment Gait Gait Assistance Required: Minimum Assistance Distance (Feet) (feet) 10 Able to Maintain Weight Bearing Status Yes During Gait Assistive Devices Assistive Device Gait Belt Front Wheeled Walker Gait Deviations General Gait Pattern Decreased Stride Length Decreased Feet Clearance Flexed Trunk Factors Limiting Gait Function Factors Limiting Gait Function Decreased Activity Tolerance Decreased Strength Pain Poor Balance Comments Gait Comments pt with LOB during ambulation requiring min A to recover; presents with decrease activity tolerance with (+) SOB during ambulation. pt also tends to breathe in through his mouth PT-Balance Assessment Sitting Balance and Reactions Static Sitting Balance Ability Good Dynamic Sitting Balance Ability Good Standing Balance and Reactions Static Standing Balance Ability Fair Dynamic Standing Balance Ability Fair M5 PT-IP Objective Assessments Start: 12/21/17 14:29 Freq: NEEDED Status: Active Protocol: Document 12/21/17 14:31 AB (Rec: 12/21/17 14:41 AB [id number]) Orientation Orientation/Cognition Level of Alertness Alert Orientation Name Place Situation Safety Awareness Decreased Safety Awareness Strength Lower Extremity Strength Assessment Bilaterally Impaired Comments Strength Comments pt with overall deconditioned M6 PT-IP Treatment Start: 12/21/17 14:29 Freq: NEEDED Status: Active Protocol: Document 12/21/17 14:31 AB (Rec: 12/21/17 14:41 AB [id number]) Physical Therapy Treatment Education Education Provided Safety M7 PT-IP Assessment and Plan Start: 12/21/17 14:29 Freq: NEEDED Status: Active Protocol: Document 12/21/17 14:31 AB (Rec: 12/21/17 14:41 AB [id number]) PT Summary Assessment and Plan Potential Rehabilitation Potential Fair Status of Condition at Evaluation Unstable Summary Impairments Pain ROM Strength Balance Cognition Bed Mobility Transfers Gait Activity Tolerance Assessment Summary pt requiring one person assist with mobility with decrease activity tolerance affecting mobility. pt with LOB during ambulation and unable to walk more than 10 ft. pt lives alone and will have limited assistance from his neighbor. pt also presents with decrease O2 sat with mobility. d/c plan depending on progress but at this time will require SNF rehab to improve overall strength and independence. Goals Bed Mobility Goal Independent Transfer Goal Independent Gait Goal Independent Gait Distance 150 Other Goals 2 steps without rails SBA Days to Meet Goals 3 Frequency of Treatment Frequency Of Treatment Twice a Day Treatment Plan Physical Therapy Treatment Plan Bed Mobility Training Transfer Training Gait Training Therapeutic Exercise Balance Retraining Discharge Planning Neuromuscular Re-ed Coordination Retraining Manual Therapy Other Recommendations and Next Treatment ambulation Focus Recommendations To Nursing Amount of Assist Needed 1 Person Assist Discharge Recommendations PT Discharge Recommendations SNF Rehab Equipment Needed for Home Before FWW if pt is not safe with SPC Discharge Provider Visit Care Team Role Provider Type Nicola Mitchell DO Emergency Provider Physician Specialty: Emergency Medicine Charli Thorpe MD Admit Provider Physician Attending Provider Specialty: Internal Medicine
--- NOTE | 2017-12-21 14:55 | PC.NURSE ---
Pt remain on O2 2L pnc, sats 95-97%. Pt OOB x1 to bsc for approx 1.5 hr, used walker and gait belt for safety. PT worked with Pt, Pt is weak. Pt spit out bloody sputum thhis am. Crackles noted in bases bilat.
--- NOTE | 2017-12-21 15:44 | CM.DPC ---
DCP: continued: EMR reviewed, note that pt with a temp of 102 today and continued with inpt level of care. Dr. Galvin anticipates pt will be here a couple more days. CM/PRODUCT LEAD team will be following for the next 2 days and seems appropriate to have social work check in with pt for further assessment and d/c planning ideas. (noting pt's hx of mental health and medical comobidities). It is noted that Dr. Galvin did update pt's sister Leandra Almaraz/[place] [phone] at pt's request and that the d/c plan remains home when stable for same.
--- NOTE | 2017-12-21 17:13 | PC.NURSE ---
Addendum entered by Duy Coffman R.N. 12/21/17 19:50: RT in room assessing patient. Bumped patient down to 1L NC, patient is maintaining 95%. Discussed weening patient off of o2 but recommended to RT that since patient does from time to time de-stat to mid to high 80's maybe keep that patient on 1L. RT is agreeable to plan. Original Note: Patient is A&O x3, pleasant and cooperative w/ staff and is able to make needs known when nec. Patient denies pain at this time. Breath sounds are dem. w/ crackles w/ bilat. bases. States his SOB has improved 96% on 2L NC. States his appetite has decreased but patient is making an attempt to eat more, encouraging fluids. Productive cough w/ blood. Patient teaching done regarding bracing pillow for coughing to help relieve pain/discomfort w/ coughing. Call light w/in reach, bed in low pos. alarm active.
[2017-12-21] MEDS: RIVAROXABAN 10 MG TABLET 15 MG PO (17:37)
[2017-12-21] MEDS: levoFLOXacin 750 MG/150 ML PIGGYBACK 100 MG IV (17:37)
[2017-12-22] VITALS (8 sets, daily range): BP systolic 135–161; BP diastolic 75–101; PULSE 104–116; RESP 17–28; TEMP 36.3–38.7; O2SAT 91–98
[2017-12-22] MEDS: PANTOPRAZOLE 40 MG TABLET PO (06:21)
[2017-12-22] MEDS: HYDROMORPHONE 2 MG INJ 1 MG IV (06:38)
[2017-12-22] MEDS: TRIUMEQ 600-50-300 1 EACH PO (08:39)
[2017-12-22] MEDS: MULTIVITAMIN 1 TABLET 1 TAB PO (08:40)
[2017-12-22] MEDS: LOSARTAN 50 MG TABLET 100 MG PO (08:40)
--- NOTE | 2017-12-22 11:01 | P.PN_ITS ---
Subjective Date Patient Seen: 12/22/17 Time Patient Seen: 10:34 Interval history: Patient showing marked improvement since yesterday. States he can breathe easier with less pain. Exam Vital Signs (past 8 hours): Vital Signs - 8 hr 3 12/22/17 05:25 12/22/17 08:00 Temperature 99.6 F 98.1 F Pulse Rate 110 H 104 H Respiratory Rate 24 20 Blood Pressure 161/96 H 146/90 H Pulse Oximetry 95 98 Pulse Oximetry 98 Fraction of Inspired Oxygen 28 Oxygen Delivery Method Nasal Cannula Oxygen Flow Rate 1 Narrative Exam Narrative: Patient states he feels much better today. Appears resting comfortably in bed with the head of the bed elevated 30?. No acute respiratory distress Const General: cooperative and comfortable Orientation: alert, awake and oriented x3 HENMT Head: normal to inspection Eyes General: appearance normal, both eyes and all related structures Pupils: PERRL and pupil size (2 mm) EOM: EOM intact bilaterally Neck Neck: normal visual inspection and supple Chest Chest: normal inspection of the chest Resp Effort & Inspection: able to speak in complete sentences, cough (Bloody in nature) Quality of cough: productive and decreased respiratory effort Auscultation: rales on the right in the lower lung bullock Cardio Rate: regular rate and tachycardic Rhythm: regular rhythm Heart Sounds: S1 normal and S2 normal GI Inspection: normal to inspection Palpation: soft Auscultation: normal bowel sounds Other: The voiding without dysuria Back/Spine/Pelvis Back: normal to inspection Thoracic/Lumbar Spine: thoracic and lumbar spine normal to inspection Skin General: no rashes or lesions noted Neuro General: alert, awake and oriented x3 Cranial Nerves: CN's II-XI intact bilaterally Cognition: normal cognition Speech: speech normal Motor: muscle tone normal throughout Sensory Exam: no sensory deficits noted Extrem General: normal to inspection Right upper extremity: normal to inspection Left upper extremity: normal to inspection Right lower extremity: normal to inspection Left lower extremity: normal to inspection Psych Appearance: grossly normal Mental Status: mental status grossly normal Speech and Movement: speech and movement normal Mood: congruent mood Affect: normal affect Attitude: cooperative Thought Process: normal Thought Content: normal Judgment: fair Other: Refusing to take some of his mental health medications. Secondary to GI upset. Objective Labs Result Diagrams: 12/18/17 00:05 12/18/17 00:05 Assessment & Plan Plan: Assessment/Plan Narrative: 1. 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 Improved today with decreasing pleuritic pain requiring oral hydrocodone with breakthrough IV Dilaudid. No clear risk factors. He was switched to Xarelto b.i.d.. for planned 3 weeks then 20 mg daily. Consider outpatient hematology consultation. 2. Probable right lower lobe pneumonia. This is been equivocal given evidence of pulmonary infarct and lack of prodrome will symptoms to suggest pneumonia, and fever may be due to pulmonary infarct versus possible pneumonia developing as a result pulmonary infarct. He was afebrile this morning. Blood cultures x2 and no growth after 24 hr. Levaquin will continue for a 7 day course. 3. Acute hypoxic respiratory failure due to 1 and 2. Improved. His saturations on 1 L nasal prong oxygen are 96-98%. He can be on room air and supplemented as needed for saturations less than 92. 4. Chest pain due to 1. Encourage patient to be switched to oral pain med control. 5. Hypertension. Mildly hypertensive. Continue to monitor. Continue usual losartan 100 mg daily. 6. HIV disease. His most recent CD4 count was 351 and he has had suppressed viral loads below the detectable limits of testing for the past few years. Continue routine Triumeq. 7. Chronic tobacco use. Cessation is advised. 8. Depression (acute). Patient is currently refusing to take his mental health medications secondary to GI upset. He states he was in the process of getting the dosages reduced by his primary care provider. Patient has Zofran and Maalox Plus ordered. Encouraged to take psych meds. He was also refusing to take his Xarelto today but once informed of the indications for gladly accepted taking the medication. He would benefit from more education about his medication regime. 9. Disposition. If he continues to be medically stable he will be considered for discharge tomorrow. He will need close follow up with his primary care provider LETICIA BLACKWOOD after discharge. Quality VTE Deep Vein Thrombosis/Pulmonary Embolism Present on Admission: Yes
[2017-12-22] MEDS: RIVAROXABAN 10 MG TABLET 15 MG PO ×2 (11:05→16:43)
--- NOTE | 2017-12-22 11:31 | PT.IPTN ---
Current Diagnoses Other pulmonary embolism without acute cor pulmonale (12/18/17) Physical Therapy Treatment Note M2 PT-IP Current Condition Start: 12/21/17 14:29 Freq: NEEDED Status: Active Protocol: Document 12/21/17 14:31 AB (Rec: 12/21/17 14:41 AB [id number]) Physical Therapy Current Condition Current Condition Evaluation Date 12/21/17 Treatment Diagnosis pulmonay embolism with infarct ; difficulty in walking Onset Date 12/18/17 Precautions Other Precautions (+) HIV; O2 sat M3 PT-IP Subjective Start: 12/21/17 14:29 Freq: NEEDED Status: Active Protocol: Document 12/22/17 11:23 AB (Rec: 12/22/17 11:31 AB [id number]) Subjective Physical Therapy Visit Type Type Treatment Note Visit Start Time 09:25 Visit Stop Time 09:48 Total Visit Minutes 23 Number of SOCIAL MEDIA DEVELOPER Visits 0 Physical Therapy Visit Comments Patient Comments pt agreeable to do therapy Therapy Pain Assessment Pain When Pain Assessed During Mobility Pain Present Pain Present Pain Reported Location Right Ribs Intensity 7 Scale Used Numeric (1 - 10) Pain Management Techniques Timing of Activity with Medications M4 PT-IP Mobility and Gait Start: 12/21/17 14:29 Freq: NEEDED Status: Active Protocol: Document 12/22/17 11:23 AB (Rec: 12/22/17 11:31 AB [id number]) PT-Bed Mobility Assessment Supine to Sit Supine to Sit Standby Assistance Head of Bed Elevated Sit to Supine Sit to Supine Standby Assistance Head of Bed Elevated PT-Transfer Assessment Sit to and From Stand Sit to and from Stand Contact Guard Assistance Equipment Transfer Assistive Device Gait Belt Front Wheeled Walker Orthotic/Prosthetic Devices or Brace: No Gait Assessment Gait Gait Assistance Required: Contact Guard Assist Distance (Feet) (feet) 40 Able to Maintain Weight Bearing Status Yes During Gait Assistive Devices Assistive Device Gait Belt Front Wheeled Walker Gait Deviations General Gait Pattern Decreased Stride Length Decreased Feet Clearance Flexed Trunk Factors Limiting Gait Function Factors Limiting Gait Function Decreased Activity Tolerance Decreased Strength Pain Poor Balance Poor Safety Awareness Comments Gait Comments O2 sat decreased to 86% with ambulation but most of the time was able to maintain at 88 to 92% with 1 L/min O2. Pt completed 40ft + 30 ft of ambulation using FWW CGA and cues for upright posture and use of FWW. M5 PT-IP Objective Assessments Start: 12/21/17 14:29 Freq: NEEDED Status: Active Protocol: Document 12/21/17 14:31 AB (Rec: 12/21/17 14:41 AB [id number]) Orientation Orientation/Cognition Level of Alertness Alert Orientation Name Place Situation Safety Awareness Decreased Safety Awareness Strength Lower Extremity Strength Assessment Bilaterally Impaired Comments Strength Comments pt with overall deconditioned M6 PT-IP Treatment Start: 12/21/17 14:29 Freq: NEEDED Status: Active Protocol: Document 12/21/17 14:31 AB (Rec: 12/21/17 14:41 AB [id number]) Physical Therapy Treatment Education Education Provided Safety M7 PT-IP Assessment and Plan Start: 12/21/17 14:29 Freq: NEEDED Status: Active Protocol: Document 12/22/17 11:23 AB (Rec: 12/22/17 11:31 AB [id number]) PT Summary Assessment and Plan Potential Rehabilitation Potential Good Summary Impairments Pain ROM Strength Balance Bed Mobility Transfers Gait Activity Tolerance Progress Towards Goals Slow Progress due to Pain Slow Progress due to Medical Issues Slow Progress due to Activity Tolerance Assessment Summary pt slowly progressing and was able to ambulate more today. d /c plan depending on pt's progress. if going home, will need assist and homehealth services. Goals Bed Mobility Goal Independent Transfer Goal Independent Gait Goal Independent Gait Distance 150 Other Goals 2 steps without rails SBA Days to Meet Goals 3 Treatment Plan Physical Therapy Treatment Plan Bed Mobility Training Transfer Training Gait Training Therapeutic Exercise Balance Retraining Discharge Planning Neuromuscular Re-ed Coordination Retraining Manual Therapy Other Recommendations and Next Treatment ambulation Focus Recommendations To Nursing Amount of Assist Needed 1 Person Assist Discharge Recommendations PT Discharge Recommendations Home with Assistance Home Health SNF Rehab Other Discharge Recommendations SNF vs home with assist and homehealth services Equipment Needed for Home Before FWW Discharge
--- NOTE | 2017-12-22 13:54 | CM.DPC ---
DCP Cont: SNF vs HH Per MD, pt making some progress and seems to be better today. Per PT, pending pt's progress here recommending SNF vs Home with assist and HH. SW met bedside with pt and explained role and discussed recommendation of SNF vs HH. SW provided the SNF Choice List and HH Choice list and discussed both options and services provided. Pt states that he feels he will need additional support at d/c and preference is return home with HH and he states he has a neighbor that could provide assist with meals and chores at d/c. Pt does not have preference on HH agency but requested SW make HH referral. SW also discussed [facility] for future needs and pt currently not interested in applying for [facility] to determine if he meets criteria but possibly in the future. SW called [facility] and [facility] and both not contracted with [facility]. SW called [facility] and they are contracted and requested clinicals to review to confirm [facility] will cover. EULAILO Pascal kindly faxed clinicals to [facility]. Plan: SW to follow closely for [facility] review towards possible home with [facility] and neighbor support vs SNF if pt does not progress. [facility] may be a barrier for d/c plans of SNF. Marry Quiles, DAY CARE HOME MOTHER
--- NOTE | 2017-12-22 14:21 | PT.IPTN ---
Current Diagnoses Other pulmonary embolism without acute cor pulmonale (12/18/17) Physical Therapy Treatment Note M2 PT-IP Current Condition Start: 12/21/17 14:29 Freq: NEEDED Status: Active Protocol: Document 12/21/17 14:31 AB (Rec: 12/21/17 14:41 AB [id number]) Physical Therapy Current Condition Current Condition Evaluation Date 12/21/17 Treatment Diagnosis pulmonay embolism with infarct ; difficulty in walking Onset Date 12/18/17 Precautions Other Precautions (+) HIV; O2 sat M3 PT-IP Subjective Start: 12/21/17 14:29 Freq: NEEDED Status: Active Protocol: Document 12/22/17 14:17 GGD (Rec: 12/22/17 14:20 GGD [email or web address]) Subjective Physical Therapy Visit Type Type Treatment Note Visit Start Time 14:00 Visit Stop Time 14:15 Total Visit Minutes 10 Number of PICK AND SHOVEL WORKER Visits 1 Physical Therapy Visit Comments Patient Comments Pt needs to sit after being in the bathroom. Therapy Pain Assessment Pain When Pain Assessed During Mobility Pain Present Pain Present Pain Reported M4 PT-IP Mobility and Gait Start: 12/21/17 14:29 Freq: NEEDED Status: Active Protocol: Document 12/22/17 14:17 GGD (Rec: 12/22/17 14:20 GGD [id number]) PT-Transfer Assessment Sit to and From Stand Sit to and from Stand Contact Guard Assistance Equipment Transfer Assistive Device Gait Belt Front Wheeled Walker Transfers Transfer Destination Chair Comments Mobility Comments Pt up to toilet with ASSEMBLER CHASSIS. O2 sats at 94% on RA with activity and HR increase to 134. RN hold any activity after pt retruned to chair. Gait Assessment Gait Gait Assistance Required: Contact Guard Assist Distance (Feet) (feet) 10 Able to Maintain Weight Bearing Status Yes During Gait Assistive Devices Assistive Device Gait Belt Front Wheeled Walker Gait Deviations General Gait Pattern Decreased Stride Length Decreased Feet Clearance Flexed Trunk Factors Limiting Gait Function Factors Limiting Gait Function Decreased Activity Tolerance Decreased Strength Pain Poor Balance Poor Safety Awareness Comments Gait Comments Pt need cues for posture and pace with gait. M5 PT-IP Objective Assessments Start: 12/21/17 14:29 Freq: NEEDED Status: Active Protocol: Document 12/21/17 14:31 AB (Rec: 12/21/17 14:41 AB [id number]) Orientation Orientation/Cognition Level of Alertness Alert Orientation Name Place Situation Safety Awareness Decreased Safety Awareness Strength Lower Extremity Strength Assessment Bilaterally Impaired Comments Strength Comments pt with overall deconditioned M6 PT-IP Treatment Start: 12/21/17 14:29 Freq: NEEDED Status: Active Protocol: Document 12/21/17 14:31 AB (Rec: 12/21/17 14:41 AB [id number]) Physical Therapy Treatment Education Education Provided Safety M7 PT-IP Assessment and Plan Start: 12/21/17 14:29 Freq: NEEDED Status: Active Protocol: Document 12/22/17 14:17 GGD (Rec: 12/22/17 14:20 GGD [id number]) PT Summary Assessment and Plan Summary Assessment Summary Pt activity was limited, but increase in HR and fatigue. Frequency of Treatment Frequency Of Treatment Twice a Day Treatment Plan Other Recommendations and Next Treatment gait Focus Recommendations To Nursing Amount of Assist Needed 1 Person Assist Discharge Recommendations PT Discharge Recommendations Home with Assistance Home Health SNF Rehab Other Discharge Recommendations SNF vs home with assist and homehealth services Equipment Needed for Home Before FWW Discharge
[2017-12-22] MEDS: HYDROMORPHONE 0.5 MG INJ 1 MG IV ×2 (14:25→22:38)
--- NOTE | 2017-12-22 14:30 | PC.NURSE ---
pt's HR 110-130's today. Dr. Hunt and Trevor RN notified
[2017-12-22] MEDS: levoFLOXacin 750 MG/150 ML PIGGYBACK 100 MG IV (15:30)
[2017-12-22] MEDS: SODIUM CHLORIDE 0.9% FLUSH 10 ML IV ×2 (20:39→22:38)
--- NOTE | 2017-12-23 00:31 | PC.NURSE ---
Addendum entered by Fabienne Bettencourt R.N. 12/23/17 05:31: Patient initially denied any pain but after getting up to bathroom states pain in right flank from hip to chest is now 7/10. Since plan is to perhaps discharge home today patient agreeable to trying po Oxycodone to ensure pain can be controlled with use of po vs IV pain meds. Original Note: Alert and oriented. Breath sounds diminished throughout with occasional expiratory wheeze auscultated in left upper lobe and left lower lobe. Currently denies any chest pain or SOB. On continuous pulse oximetry and RA sat is 91-92%. Does state he is coughing up blood tinged sputum. HRR but tachy at 112 bpm and 0000 tele reading was reported as ST. Denies nausea. BT present and abdomen is soft; states he had a BM around 2200 tonight and was firm and brown/medium amount. Denies dysuria, frequency, urgency or incontinence and is using urinal in bed to void. Able to turn himself. Fall risk score is high and bed alarm is activated.
[2017-12-23 04:42] VITALS: BP 159/86; PULSE 104; RESP 21; TEMP 36.9; O2SAT 90
[2017-12-23 04:50] VITALS: O2SAT 93
[2017-12-23] MEDS: OXYCODONE IR 5 MG TABLET PO ×2 (05:29→09:57)
[2017-12-23] MEDS: PANTOPRAZOLE 40 MG TABLET PO (05:30)
[2017-12-23 06:56] LABS: Add Manual Diff / Slide Review NO; Basophils Percent Auto 0.4 % (0-2); Eosinophils Percent Auto 1.6 % (2-4); Hematocrit 35.9 % (41-53); Hemoglobin 12.2 g/dL (13.5-17.5); Lymphocytes Percent Auto 20.7 % (25-40); Mean Corpuscular HGB Conc 34.1 % (30-36); Mean Corpuscular Hemoglobin 31.8 PG (26-34); Mean Corpuscular Volume 93.3 fL (80-100); Monocytes Percent Auto 11.4 % (3-14); Neutrophils Absolute Auto 7100 /uL (3000-5900); Neutrophils Percent Auto 65.9 % (50-75); Platelet Count 301 X10^3/uL (150-400); Red Blood Cell Count 3.84 X10^6/uL (4.5-5.9); Red Cell Distribution Width 13.3 % (11.6-14.8); White Blood Cell Count 10.8 X10^3/uL (4.5-11.0)
[2017-12-23 07:53] VITALS: O2SAT 92
[2017-12-23 08:00] VITALS: BP 135/91; PULSE 119; RESP 20; TEMP 36.7; O2SAT 95
--- NOTE | 2017-12-23 08:59 | PT.IPTN ---
Current Diagnoses Other pulmonary embolism without acute cor pulmonale (12/18/17) Physical Therapy Treatment Note M2 PT-IP Current Condition Start: 12/21/17 14:29 Freq: NEEDED Status: Active Protocol: Document 12/21/17 14:31 AB (Rec: 12/21/17 14:41 AB [id number]) Physical Therapy Current Condition Current Condition Evaluation Date 12/21/17 Treatment Diagnosis pulmonay embolism with infarct ; difficulty in walking Onset Date 12/18/17 Precautions Other Precautions (+) HIV; O2 sat M3 PT-IP Subjective Start: 12/21/17 14:29 Freq: NEEDED Status: Active Protocol: Document 12/23/17 08:56 [facility] (Rec: 12/23/17 08:59 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 Overall feeling better Therapy Pain Assessment Pain When Pain Assessed During Mobility Pain Present Pain Present Pain Reported Location Right Ribs Intensity 7 Scale Used Numeric (1 - 10) Pain Management Techniques Re-positioning M4 PT-IP Mobility and Gait Start: 12/21/17 14:29 Freq: NEEDED Status: Active Protocol: Document 12/23/17 08:56 [facility] (Rec: 12/23/17 08:59 [facility] [id number]) PT-Bed Mobility Assessment Supine to Sit Supine to Sit Independent Scooting Scooting to Edge of Bed Independent PT-Transfer Assessment Sit to and From Stand Sit to and from Stand Standby Assistance Equipment Transfer Assistive Device Gait Belt Straight Cane Gait Assessment Gait Gait Assistance Required: Contact Guard Assist Distance (Feet) (feet) 100 Assistive Devices Assistive Device Straight Cane Gait Deviations General Gait Pattern Decreased Stride Length Comments Gait Comments Pt had 2 minor stumbles which he was able to regain balance. Stair Climbing Assessment Evaluation Level of Assist On Stairs Standby Assistance Devices Stair Climbing Assistive Devices Straight Cane Right Railing Technique/Endurance Stair Climbing Direction Ascend and Descend Stair Climbing Technique Step to Step Number of Steps Climbed 3 Query Text: M5 PT-IP Objective Assessments Start: 12/21/17 14:29 Freq: NEEDED Status: Active Protocol: Document 12/21/17 14:31 AB (Rec: 12/21/17 14:41 AB [id number]) Orientation Orientation/Cognition Level of Alertness Alert Orientation Name Place Situation Safety Awareness Decreased Safety Awareness Strength Lower Extremity Strength Assessment Bilaterally Impaired Comments Strength Comments pt with overall deconditioned M6 PT-IP Treatment Start: 12/21/17 14:29 Freq: NEEDED Status: Active Protocol: Document 12/21/17 14:31 AB (Rec: 12/21/17 14:41 AB [id number]) Physical Therapy Treatment Education Education Provided Safety M7 PT-IP Assessment and Plan Start: 12/21/17 14:29 Freq: NEEDED Status: Active Protocol: Document 12/23/17 08:56 [facility] (Rec: 12/23/17 08:59 [facility] [id number]) PT Summary Assessment and Plan Summary Assessment Summary Pt is improving with tolerance with activity. He was a little unsteady with gait, but able to regain balance with cane. he occasionally reached for patel when amb. Reports he does have posts to hold going up/down stairs. Frequency of Treatment Frequency Of Treatment Twice a Day Treatment Plan Other Recommendations and Next Treatment Gait & stairs & balance Focus Discharge Recommendations PT Discharge Recommendations Home with Assistance Home Health
[2017-12-23] MEDS: RIVAROXABAN 10 MG TABLET 15 MG PO (09:27)
[2017-12-23] MEDS: TRIUMEQ 600-50-300 1 EACH PO (09:28)
[2017-12-23] MEDS: LOSARTAN 50 MG TABLET 100 MG PO (09:28)
[2017-12-23] MEDS: MULTIVITAMIN 1 TABLET 1 TAB PO (09:29)
[2017-12-23] MEDS: SODIUM CHLORIDE 0.9% FLUSH 10 ML IV (09:30)
[2017-12-23] MEDS: ACETAMINOPHEN 325 MG TABLET 650 MG PO (09:56)
--- NOTE | 2017-12-23 11:43 | P.DS_ITS ---
History of Present Illness Date Patient Seen: 12/23/17 Time Patient Seen: 11:41 Chief complaint: LOTS OF PAIN RT SIDE Narrative: Olu Weinstein is a 57 year old black male who presents with chest pain. Workup in the ER revealed that he had a large pulmonary embolism with infarct. He appears to have no bruit recent risk factors he has had no travel or prolonged immobility no history of blood clotting disorder or any family history of this. He denies any injury or recent travel. He has had some cough and complains of R sided rib pain as well. Patient has HIV and is treated with Triumeq by his PCP in [place]. Discharge Providers Date of admission: 12/18/17 05:36 Consults: 12/21/17 11:08 Consult to Physical Therapy Evaluate & Treat Comment: Physician Instructions: Evaluate and Treat Discharge provider: LETICIA Betancourt Summary Discharge Diagnosis: 1. Acute pulmonary embolism with right lower lobe pulmonary infarct as demonstrated on CT of the chest. 2. Acute hypoxic respiratory failure due to 1. As evidence with oxygen saturations less than 90, tachypnea, tachycardia. 3. Chest pain due to 1. Managed with oral and IV narcotics. 4. Hypertension. Managed with home meds. 5. HIV disease. Managed with home meds. 6. Tobacco dependence. Advised on smoking cessation Hospital Course: This is a discharge summary for 5 day hospitalization for this patient. He was originally treated with Lovenox which was changed to Xarelto. He continued to improve during the hospitalization, though with persistent right flank pain controlled with oral hydrocodone and occasional IV Dilaudid. For the 1st several days he required supplemental oxygen of 1-2 L via nasal prongs to maintain saturations greater than 92. The patient has remained in sinus tachycardia rate of 110-115. He reported slight amount of hemoptysis not observed by staff. He also has an occasional spike in his temperature with a T- max of 102?. He was started on IV Levaquin pending cultures. Blood cultures x2 were negative after 48 hr. He continues to have elevated temps periodically. White count normal procalcitonin normal. It does not appear that he has pneumonia at this time but I will continue Levaquin at home for 10 day period. Tolerance to increased activity has improved over the last several days. Patient is able to walk in the hallways, up and down steps without use of supplemental oxygen maintaining sats in the low 90s. He has been performing incentive spirometry with a inspired volume of approximately 1000 mL. He lives alone, and home health has been ordered. In addition to his home medications he will be placed on Xarelto 15 mg p.o. twice a day for 15 days, followed by Xarelto 20 mg p.o. daily. Mr. Weinstein will also be given oxycodone for pain control. He has a follow-up appointment with this PCP Tuesday of next week. He has been instructed on signs and symptoms for seeking care as well as provided written discharge instructions. Status at Discharge Functional status at discharge: uses cane/walker Overall status at discharge: patient is not back to baseline Time Spent with Patient Greater than 30 minutes Exam Vital Signs (past 8 hours): Vital Signs - 8 hr 3 12/23/17 04:42 12/23/17 04:50 12/23/17 07:53 Temperature 98.5 F Pulse Rate 104 H Respiratory Rate 21 Blood Pressure 159/86 H Pulse Oximetry 90 L 93 92 3 12/23/17 08:00 Temperature 98.1 F Pulse Rate 119 H Respiratory Rate 20 Blood Pressure 135/91 H Pulse Oximetry 95 Pulse Oximetry 95 Fraction of Inspired Oxygen 28 Oxygen Delivery Method Room Air Oxygen Flow Rate 0 Narrative Exam Narrative: Patient states he feels much better today. Appears resting comfortably in bed with the head of the bed elevated 30?. No acute respiratory distress Const General: cooperative and comfortable Orientation: alert, awake and oriented x3 HENMT Head: normal to inspection Eyes General: appearance normal, both eyes and all related structures Pupils: PERRL and pupil size (2 mm) EOM: EOM intact bilaterally Neck Neck: normal visual inspection and supple Chest Chest: normal inspection of the chest Resp Effort & Inspection: able to speak in complete sentences, cough (Bloody in nature) Quality of cough: productive and decreased respiratory effort Auscultation: rales on the right in the lower lung bullock Cardio Rate: regular rate and tachycardic Rhythm: regular rhythm Heart Sounds: S1 normal and S2 normal GI Inspection: normal to inspection Palpation: soft Auscultation: normal bowel sounds Other: The voiding without dysuria Back/Spine/Pelvis Back: normal to inspection Thoracic/Lumbar Spine: thoracic and lumbar spine normal to inspection Skin General: no rashes or lesions noted Neuro General: alert, awake and oriented x3 Cranial Nerves: CN's II-XI intact bilaterally Cognition: normal cognition Speech: speech normal Motor: muscle tone normal throughout Sensory Exam: no sensory deficits noted Extrem General: normal to inspection Right upper extremity: normal to inspection Left upper extremity: normal to inspection Right lower extremity: normal to inspection Left lower extremity: normal to inspection Psych Appearance: grossly normal Mental Status: mental status grossly normal Speech and Movement: speech and movement normal Mood: congruent mood Affect: normal affect Attitude: cooperative Thought Process: normal Thought Content: normal Judgment: fair Other: Refusing to take some of his mental health medications. Secondary to GI upset. Objective Labs Result Diagrams: 12/23/17 05:18 12/18/17 00:05 Labs: Laboratory Results - last 24 hr 12/23/17 05:18 WBC 10.8 RBC 3.84 L Hgb 12.2 L Hct 35.9 L MCV 93.3 MCH 31.8 MCHC 34.1 RDW 13.3 Plt Count 301 Neut % (Auto) 65.9 Lymph % (Auto) 20.7 L Rowan % (Auto) 11.4 Eos % (Auto) 1.6 L Baso % (Auto) 0.4 Neut # (Auto) [address] abdomen and pelvis: IMPRESSION: 1. No acute intra-abdominal findings. The appendix is not visualized; however there no ancillary findings to suggest acute appendicitis. 2. Nonobstructive nephrolithiasis. 3. Focal consolidation at the right lung base suggesting aspiration/infection. Please see detailed description of the pulmonary arterial findings on the associated CT angiogram of the chest. These airspace opacities could also be associated with pulmonary infarction.4. 4 mm right basilar pulmonary nodule. Of note, this is not visualized on the associated CT pulmonary arteriogram from the same date and may be artifactual. However, attention should be directed to this nodule on future surveillance scans to ensure resolution. CT angio of the chest IMPRESSION: 1. Occlusive segmental and subsegmental pulmonary embolus of the inferior right lower lobe. 2. Consolidative airspace opacities at the right lung base. Although these findings may be associated with aspiration or infection, pulmonary infarct could also be considered in the differential. Discharge Plan Discharge Plan Patient Disposition: Home, Self-Care Provider Discharge Instructions Diet: Diet as Tolerated and Regular Diet comment: Heart healthy/cardiac diet Activity: As tolerated Oxygen: Room air Wound Care Report to your healthcare provider any signs of infection, such as:: chills, fever, night sweats and increased pain Discharge Data Attending Provider: Charli Thorpe Admit Date/Time: 12/18/17 05:36 Quality VTE Deep Vein Thrombosis/Pulmonary Embolism Present on Admission: Yes
[2017-12-23 12:00] VITALS: BP 136/82; PULSE 115; RESP 18; TEMP 36.7; O2SAT 94
--- NOTE | 2017-12-23 12:20 | CM.DPNOTE ---
Addendum entered by Cheli Juárez 12/23/17 12:59: Spoke with Casie SALAZAR/Martha: Able to accept patient and will meet with patient within 48 hours. Original Note: Per MD patient to discharge home today with MARTIN. HH consult ordered and F2F completed. Faxed updated info to Casie SALAZAR. Patient remains agreeable to discharging home with Casie SALAZAR.
--- NOTE | 2017-12-23 14:34 | PC.NURSE ---
Day shift: Pt left unit at approx 1400 with all personal belongings. Paperwork signed and questions answered. Scripts filled downstairs. Pt took Taxi home and SUSAN Wilkins waited with the Pt and helped get him into the vehicle.
== END 2017-12-23 14:36 | disposition home health service (06) | DRG 134 ==
LOC: ED 12-18 05:19 → AC 12-18 05:37
PROVIDERS: Nurse Practitioner Acute Care; Admitting Provider Internal Medicine; Emergency Provider Emergency Medicine; Visit Provider Internal Medicine
DX: I26.99 Other pulmonary embolism without acute cor pulmonale (principal); B20 Human immunodeficiency virus [HIV] disease; J96.01 Acute respiratory failure with hypoxia; I10 Essential (primary) hypertension; F32.9 Major depressive disorder, single episode, unspecified; F17.210 Nicotine dependence, cigarettes, uncomplicated
CPT/HCPCS: 36415; 36591; 36592; 71046; 71275; 74022; 74177; 80053; 81003; 81015; 83690; 83880; 84145; 84484; 85025; 87040; 93005; 93970; 94760; 94762; 96361; 96374; 97116; 97163; 97530; 99285; J1170; J1650; J1956; J2405; Q9967

== ENCOUNTER → 2018-01-03 17:23 | Outpatient (CLI) | payer OTHER, MEDICAID, SELFPAY ==
[2017-12-18 08:30] VITALS: BMI 23.0
--- NOTE | 2018-01-03 17:29 | DI.RAD.S_ITS ---
PROCEDURE: XR CHEST 2V INDICATIONS: PULMONARY EMBOLI TECHNIQUE: 2 views of the chest were acquired. COMPARISON: [facility], CR, XR CHEST 2V, 12/20/2017, 15:36. FINDINGS: Surgical changes and devices: None. Lungs and pleura: No pleural effusions or pneumothorax. Right lower lobe infiltrate is still present with no appreciable interval change. Small right subpulmonic effusion again suspected. Remainder of lungs clear. Mediastinum: Mediastinal contours are normal. Heart size is normal. Bones and chest wall: No suspicious bony abnormalities. Soft tissues appear unremarkable. IMPRESSION: Persistent right lower lobe pneumonia with subpulmonic peripneumonic effusion. Dictated by: Nba Mata M.D. on 01/04/2018 at 8:40 Approved by: Nba Mata M.D. on 01/04/2018 at 8:42
== END ==
PROVIDERS: Visit Provider Nurse Practitioner Family
DX: J18.9 Pneumonia, unspecified organism (principal); I26.99 Other pulmonary embolism without acute cor pulmonale
CPT/HCPCS: 71046

== ENCOUNTER → 2018-01-12 08:52 | Outpatient (CLI) | payer OTHER, MEDICAID, SELFPAY ==
[2017-12-18 08:30] VITALS: BMI 23.0
== END ==
PROVIDERS: Visit Provider Nurse Practitioner Family
DX: I26.99 Other pulmonary embolism without acute cor pulmonale (principal)

== ENCOUNTER → 2018-03-15 09:03 | Outpatient (CLI) | payer OTHER, MEDICAID, SELFPAY ==
[2017-12-18 08:30] VITALS: BMI 23.0
--- NOTE | 2018-03-15 | DI.CT.S_ITS ---
PROCEDURE: CT CHEST WO CON INDICATIONS: PULMONARY INFARCT, COPD TECHNIQUE: Noncontrast 5 mm thick sections acquired from the pulmonary apices to the posterior costophrenic angles. 7 mm thick coronal and sagittal MIP reformats were then acquired. For radiation dose reduction, the following was used: automated exposure control, adjustment of mA and/or kV according to patient size. COMPARISON: None. FINDINGS: Image quality: Excellent. Lungs and pleura: Marked interval improvement in previously noted right lung base pulmonary opacities. There is persistent dense peripheral right lower lobe pulmonary opacities including a nodular component abutting the pleura measuring 14 x 14 mm (se 2 im 45). Emphysema. Central and peripheral airways are patent and normal in caliber. Mediastinum: Heart size is normal. No pericardial effusion. No mediastinal adenopathy by size criteria. Thoracic aorta and central pulmonary arteries are normal in size. Esophagus is normal in caliber. No hiatal hernia. Bones and chest wall: No suspicious bony lesions. No vertebral body compression fractures. No axillary or supraclavicular adenopathy by size criteria. Thyroid gland is radiographically normal. Abdomen: Visualized upper abdominal solid organs and bowel loops appear normal in the absence of contrast. Nonobstructing renal calculi. IMPRESSION: 1. Interval marked improvement in bibasilar pulmonary opacities. There is persistent peripheral right lower lobe pulmonary opacities with a nodular component likely representing scarring with possible rounded atelectasis resulting from the previous pulmonary hemorrhage/infarction given its rapid appearance. Recommend continued CT followup to document resolution and exclude any underlying masses. On resolution, the patient likely meets criteria to undergo annual low-dose screening CT given their emphysema. 2. Nonobstructing renal calculi. Dictated by: Willis Medina M.D. on 03/15/2018 at 10:24 Approved by: Willis Medina M.D. on 03/15/2018 at 10:31
== END ==
PROVIDERS: Visit Provider Internal Medicine
DX: I26.99 Other pulmonary embolism without acute cor pulmonale (principal); N20.0 Calculus of kidney; J44.9 Chronic obstructive pulmonary disease, unspecified
CPT/HCPCS: 71250

== ENCOUNTER → 2018-03-29 08:44 | Outpatient (CLI) | payer OTHER, MEDICAID, SELFPAY ==
[2017-12-18 08:30] VITALS: BMI 23.0
--- NOTE | 2018-03-29 | DI.CT.S_ITS ---
PROCEDURE: CT ABDOMEN PELVIS WO/W CON INDICATIONS: painless gross HEMATURIA TECHNIQUE: Optional 5 mm thick noncontrast images acquired from the diaphragm to the symphysis pubis. After the administration of intravenous contrast, 5 mm thick images acquired from the diaphragm to the symphysis pubis after a 10-minute delay. 2 mm thick coronal and sagittal reformats were then performed of the kidneys and ureters. For radiation dose reduction, the following was used: automated exposure control, adjustment of mA and/or kV according to patient size. COMPARISON: [facility], CR, XR CHEST 2V, 01/03/2018, 17:11. [facility], CT, CT ABDOMEN PELVIS W CON, 12/18/2017, 0:40. [facility], CT, CT CHEST WO CON, 03/15/2018, 9:01. FINDINGS: Image quality: Excellent. Lung bases: Mild dependent consolidation can be seen within the right lower lobe, which has the appearance of atelectasis or scarring. The previously seen 4 mm right lower lobe pulmonary nodule has resolved. The lung bases otherwise appear clear. The heart size is normal. Urinary system: Bilateral nonobstructing kidney stones are seen. The largest on the left side measures 3 mm and the largest stone on the right measures 2-3 mm. No hydronephrosis can be seen. Stones are seen along courses of the ureters. The kidneys demonstrate normal size. Normal bilateral renal enhancement can be seen. No renal masses are detected. When filled with contrast, the renal calyces demonstrate a normal appearance. Visualized/opacified portions of the ureters are unremarkable. No calcified bladder stones are seen. No focal bladder wall thickening is seen. Other solid organs: Liver is normal in size and enhancement. Gallbladder demonstrates a gallstone within its lumen. Biliary system is non dilated. Pancreas enhances normally. Spleen is normal in size and enhancement. No adrenal nodules. Peritoneum and bowel: Bowel loops demonstrate normal wall thickness and caliber. No free fluid or air. Nodes and vessels: No retroperitoneal or mesenteric adenopathy by size criteria. Aorta and inferior vena cava are normal in size. Atherosclerotic calcification is noted. Abdominal wall: No ventral hernias. Pelvis: No pathologic free pelvic fluid. No inguinal adenopathy. There is a mild fat-containing right inguinal hernia present. Bones: No suspicious bony lesions. No vertebral body compression fractures. IMPRESSION: Bilateral nonobstructing kidney stones are seen. No renal masses are seen. No hydronephrosis. Consolidative changes are seen at the right lung base, which are similar to the prior recent CT. Attention should be paid to this area on any future followup studies. Resolution of the previously seen 4 mm right lower lobe nodule. Incidental note is made of: Mild fat-containing right inguinal hernia [place] Dictated by: Juliocesar Yin M.D. on 03/29/2018 at 9:01 Approved by: Juliocesar Yin M.D. on 03/29/2018 at 9:09
== END ==
PROVIDERS: Visit Provider Nurse Practitioner Family
DX: R31.0 Gross hematuria (principal); N20.0 Calculus of kidney; K40.90 Unilateral inguinal hernia, without obstruction or gangrene, not specified as recurrent; K80.80 Other cholelithiasis without obstruction
CPT/HCPCS: 74178; Q9967

== ENCOUNTER 2018-06-20 09:53 | Emergency (ER) | payer OTHER, MEDICAID, SELFPAY ==
[2017-12-18 08:30] VITALS: BMI 23.0
[2018-06-20 10:01] VITALS: BP 158/92; PULSE 90; RESP 16; TEMP 36.7; O2SAT 100
--- NOTE | 2018-06-20 10:25 | DI.RAD.S_ITS ---
PROCEDURE: XR CHEST 1V INDICATIONS: chest pain TECHNIQUE: One view of the chest was acquired. COMPARISON: [facility], CR, XR CHEST 2V, 12/20/2017, 15:36. [facility], CT, CT HEAD/BRAIN WO CON, 06/20/2018, 10:48. [facility], CR, XR CHEST 2V, 01/03/2018, 17:11. FINDINGS: Surgical changes and devices: None. Lungs and pleura: On this semiupright portable chest examination, no large pneumothorax or large pleural effusions are seen. No focal infiltrates are seen. Mediastinum: Mediastinal contours appear normal. Heart size is normal. Bones and chest wall: No suspicious bony lesions. Overlying soft tissues appear unremarkable. IMPRESSION: Portable chest within normal limits. Dictated by: Juliocesar Yin M.D. on 06/20/2018 at 10:24 Approved by: Juliocesar Yin M.D. on 06/20/2018 at 10:24
[2018-06-20 10:41] VITALS: BP 128/84; PULSE 98; RESP 20; O2SAT 100
--- NOTE | 2018-06-20 10:50 | ED.HA ---
HPI - Headache General Chief Complaint: Headache Stated Complaint: BAD HEADACHE,CHEST TIGHT Time Seen by Provider: 06/20/18 10:34 Source: patient Mode of arrival: ambulatory Limitations: no limitations History of Present Illness HPI Narrative: This is a 57-year-old male who comes to the emergency department with complaint of headache. Patient states headache will come up from sleep at about 2:00 a.m. this morning. He states the intensity has been decreasing but he also was having some chest pain and feeling short of breath when that happened. Patient states that he feels like his symptoms have been improving he came in because his family encouraged him to do so. He denies any vision changes, no new numbness, no weakness, no difficulty with speech or movement. Denies any nausea or vomiting no GI or urinary symptoms. No swelling in his lower extremities. He has had headaches before but not quite to this intensity. He also denies recent chest pressure. He does have chronic issues with breathing secondary to COPD. Patient states he is on a new blood pressure medication that he started about a week ago. He does have a history significant for HIV with an undetectable viral load, COPD which she uses inhalers 4, pulmonary embolism which she is on Xarelto for. He states that they did not find an exact cause for why he developed a blood clot. He also takes medication for blood pressure and cholesterol. Patient's primary care is through [facility] in [place]. Related Data Home Medications Medication Instructions Recorded Confirmed [id number] 1 tab PO QAM 12/18/17 12/18/17 mirtazapine 30 mg PO QAM 12/18/17 12/18/17 mv. min [id number] 1 tab PO QAM 12/18/17 12/18/17 risperidone 1 mg PO QAM 12/18/17 12/18/17 sertraline 25 mg PO QAM 12/18/17 12/18/17 tamsulosin 0.4 mg PO QAM 12/18/17 12/18/17 triamcinolone acetonide 1 ea TOPICAL PRN PRN 12/18/17 12/18/17 losartan 100 mg PO DAILY 12/19/17 12/19/17 omeprazole 20 mg PO DAILY 12/19/17 12/19/17 Previous Rx's Medication Instructions Recorded oxycodone 5 mg PO Q4-6H PRN #30 tab 12/23/17 rivaroxaban [Xarelto] 20 mg PO DAILY #30 tab 12/23/17 Allergies Allergy/AdvReac Type Severity Reaction Status Date / Time No Known Drug Allergies Allergy Verified 12/17/17 22:46 Review of Systems Review of Systems All systems reviewed & are unremarkable except as noted in HPI and below Constitutional Denies fever(s), Reports headache(s), Denies lethargy and Denies weakness Eyes Denies change in vision ENT Ears, Nose, Mouth, and Throat: Reports headache(s), Denies nasal congestion and Reports sinus pressure Cardiovascular Reports chest pain, Denies diaphoresis, Denies syncope, Denies edema, Denies irregular heart rhythm, Denies lightheadedness, Denies palpitations, Reports dyspnea and Denies orthopnea Respiratory Denies change in phlegm color, Denies chest congestion, Denies cough, Denies hemoptysis, Reports dyspnea and Denies wheezing Gastrointestinal Gastrointestinal: Denies abdominal pain, Denies change in bowel habits, Denies diarrhea, Denies nausea and Denies vomiting Genitourinary Denies difficulty urinating Musculoskeletal Denies back pain Neurologic Denies syncope, Reports headache(s) and Denies weakness Endocrine Denies palpitations Allergic/Immunologic Denies wheezing PFSH Medical History COPD (chronic obstructive pulmonary disease) (Acute) Depression (Acute) Pulmonary embolism (Acute) HIV disease (Chronic) Hypertension (Chronic) Social History household members: none Smoking Status: Current every day smoker alcohol intake: former Exam Narrative Exam Narrative: GEN: Thin, well-appearing male, alert and oriented x 3, patient appears to be in mild distress. HEENT: Atraumatic, pupils are equal round reactive to light, extraocular movements are intact, nares are clear, TMs are clear with no fluid, there is no conjunctival pallor. Throat is clear without any exudates, erythema, tonsillar enlargement or uvular deviation, no facial droop. HEART: Regular rate and rhythm without murmur, clicks, rubs. LUNGS:Lungs clear to auscultation, no wheezes, rales, crackles, chest moves symmetrically ABD:bowel sounds normal, soft, non-tender, no guarding, rebound, rigidity, no masses noted, no hepatosplenomegaly :No CVA tenderness MSCL: Non-tender, no muscle atrophy, muscles strength 5/5 upper and lower extremities, full range of motion, normal gait NEURO:CN 2-12 intact, sensation normal Initial Vital Signs Initial Vital Signs: Vital Signs Temperature 98.1 F 06/20/18 10:01 Pulse Rate 90 06/20/18 10:01 Respiratory Rate 16 06/20/18 10:01 Blood Pressure 158/92 H 06/20/18 10:01 Pulse Oximetry 100 06/20/18 10:01 Scores HEART Score Heart Score history: Slightly Suspicious Heart Score EKG: Non-Specific repolarization disturbance Heart Score Age: 45-64 years old Heart Score risk factors: 1-2 risk factors Course Orders Ordered: ED Orders 06/20/18 10:25 XR chest 1V Stat 06/20/18 10:50 Complete Blood Count AUTO DIFF Stat Comprehensive Metabolic Panel Stat D Dimer Stat Lipase Stat Partial Thromboplastin Time Stat Prothrombin Time INR Stat Troponin & CK Cardiac Panel Stat 06/20/18 10:55 CT head/brain wo con Stat Discontinued Medications Acetaminophen (Tylenol) 975 mg PO NOW ONE Stop: 06/20/18 10:50 Last Admin: 06/20/18 10:55 Dose: 975 mg Aspirin (Aspirin Chew) 324 mg PO NOW ONE Stop: 06/20/18 10:50 Last Admin: 06/20/18 10:57 Dose: 324 mg Vital Signs - 8 hr 06/20/18 10:41 06/20/18 12:01 06/20/18 12:43 Pulse Rate 98 H 93 H 99 H Respiratory Rate 20 21 22 Blood Pressure Blood Pressure [Left Arm] 128/84 133/86 138/92 H Pulse Oximetry 100 99 100 06/20/18 13:11 Pulse Rate 88 Respiratory Rate 16 Blood Pressure 138/74 Blood Pressure [Left Arm] Pulse Oximetry MDM - Headache Lab Data Attestation: I reviewed the patient's lab results. Result diagrams: 06/20/18 10:50 06/20/18 10:50 Lab Results 06/20/18 06/20/18 06/20/18 Range/Units 10:50 10:50 10:50 WBC 11.7 H (4.5-11.0) X10^3/uL RBC 4.83 (4.5-5.9) X10^6/uL Hgb 15.4 (13.5-17.5) g/dL Hct 46.3 (41-53) % MCV 95.9 (80-100) fL MCH 31.8 (26-34) PG MCHC 33.2 (30-36) % RDW 15.2 H (11.6-14.8) % Plt Count 192 (150-400) X10^3/uL Neut % (Auto) 60.3 (50-75) % Lymph % (Auto) 25.9 (25-40) % Arroyo % (Auto) 12.6 (3-14) % Eos % (Auto) 0.9 L (2-4) % Baso % (Auto) 0.3 (0-2) % Neut # (Auto) 7000 H (2541-7435) /uL PT 14.3 H (10.1-12.7) SECONDS INR 1.3 (0.9-1.3) APTT 33 (26.4-36.2) SECONDS D-Dimer < 200 (<230) ng/mL Sodium 143 (137-145) mmol/L Potassium 4.1 (3.4-5.1) mmol/L Chloride 103 (98-107) mmol/L Carbon Dioxide 27 (22-32) mmol/L BUN 30 H (9-20) mg/dL Creatinine 1.40 H (0.66-1.25) mg/dL Estimated GFR 52.4 L (>60) mL/min BUN/Creatinine Ratio 21.4 (6-22) Glucose 105 H (70-100) mg/dL Calcium 10.0 (8.4-10.2) mg/dL Total Bilirubin 0.7 (0.2-1.3) mg/dL AST 27 (17-59) IU/L ALT 22 (21-72) IU/L Alkaline Phosphatase 98 (38-126) U/L Total Creatine Kinase 133 (55-170) U/L CK-MB (CK-2) 0.83 (<2.37) ng/mL CK-MB (CK-2) Rel Index 0.6 L (1.5-5.0) % Troponin I < 0.012 (0.01-0.034) ng/mL Total Protein 9.0 H (6.3-8.2) g/dL Albumin 5.1 H (3.5-5.0) g/dL Globulin 3.9 (1.7-4.1) g/dL Albumin/Globulin Ratio 1.3 (1.0-2.8) Lipase 249 (23-300) U/L 06/20/18 Range/Units 10:50 WBC (4.5-11.0) X10^3/uL RBC (4.5-5.9) X10^6/uL Hgb (13.5-17.5) g/dL Hct (41-53) % MCV (80-100) fL MCH (26-34) PG MCHC (30-36) % RDW (11.6-14.8) % Plt Count (150-400) X10^3/uL Neut % (Auto) (50-75) % Lymph % (Auto) (25-40) % Arroyo % (Auto) (3-14) % Eos % (Auto) (2-4) % Baso % (Auto) (0-2) % Neut # (Auto) (6291-5799) /uL PT (10.1-12.7) SECONDS INR (0.9-1.3) APTT (26.4-36.2) SECONDS D-Dimer Cancelled (<230) ng/mL Sodium (137-145) mmol/L Potassium (3.4-5.1) mmol/L Chloride (98-107) mmol/L Carbon Dioxide (22-32) mmol/L BUN (9-20) mg/dL Creatinine (0.66-1.25) mg/dL Estimated GFR (>60) mL/min BUN/Creatinine Ratio (6-22) Glucose (70-100) mg/dL Calcium (8.4-10.2) mg/dL Total Bilirubin (0.2-1.3) mg/dL AST (17-59) IU/L ALT (21-72) IU/L Alkaline Phosphatase (38-126) U/L Total Creatine Kinase (55-170) U/L CK-MB (CK-2) (<2.37) ng/mL CK-MB (CK-2) Rel Index (1.5-5.0) % Troponin I (0.01-0.034) ng/mL Total Protein (6.3-8.2) g/dL Albumin (3.5-5.0) g/dL Globulin (1.7-4.1) g/dL Albumin/Globulin Ratio (1.0-2.8) Lipase (23-300) U/L Imaging Data CT scan - head: Radiologist's impression: [address] [address] [address] Scan Report Signed Patient: Olu WeinsteinMR#: [id number] : 1Acct:[id number] Age/Sex: 57 / MDate of Service: 06/20/18 Loc: ED Accession Number: [id number] Procedure: CT head/brain wo con Ordering Provider: Amanda Escobar D.O. PROCEDURE: CT HEAD/BRAIN WO CON INDICATIONS: headache TECHNIQUE: Noncontrast 4.5 mm thick angled axial sections acquired from the foramen magnum to the vertex, with coronal and sagittal reformats. For radiation dose reduction, the following was used: automated exposure control, adjustment of mA and/or kV according to patient size. COMPARISON: Located Within [facility] , XR CHEST 1V, 06/20/2018, 10:37. FINDINGS: Image quality: Excellent. CSF spaces: Basal cisterns are patent. No extra-axial fluid collections. Ventricles are normal in size and shape. Brain: No midline shift. No intracranial masses or hemorrhage. Garsia-white matter interface is normal. Skull and face: Calvarium and visualized facial bones are intact, without suspicious lesions. Sinuses: Visualized sinuses and mastoids are clear. IMPRESSION: No acute intracranial process is seen. Specifically, no acute intracranial hemorrhage is seen. Dictated by: Juliocesar Yin M.D. on 06/20/2018 at 10:23 Approved by: Juliocesar Yin M.D. on 06/20/2018 at 10:24 Chest x-ray: Radiologist's impression: [address] [address] XRay Report Signed Patient: Dimitry Weinstein#: [id number] : 1Acct:[id number] Age/Sex: 57 / MDate of Service: 06/20/18 Loc: ED Accession Number: [id number] Procedure: XR chest 1V Ordering Provider: Amanda Escobar D.O. PROCEDURE: XR CHEST 1V INDICATIONS: chest pain TECHNIQUE: One view of the chest was acquired. COMPARISON: Located [facility], CR, XR CHEST 2V, 12/20/2017, 15:36. Located Within [facility], CT, CT HEAD/BRAIN WO CON, 06/20/2018, 10:48. Located Within [facility], CR, XR CHEST 2V, 01/03/2018, 17:11. FINDINGS: Surgical changes and devices: None. Lungs and pleura: On this semiupright portable chest examination, no large pneumothorax or large pleural effusions are seen. No focal infiltrates are seen. Mediastinum: Mediastinal contours appear normal. Heart size is normal. Bones and chest wall: No suspicious bony lesions. Overlying soft tissues appear unremarkable. IMPRESSION: Portable chest within normal limits. Dictated by: Juliocesar Yin M.D. on 06/20/2018 at 10:24 Approved by: Juliocesar Yin M.D. on 06/20/2018 at 10:24 ECG Data Attestation: I personally reviewed and interpreted this ECG as follows: Interpretation: Sinus rhythm first-degree AV block rate of 98 P are of 220, QRS of 79 and QTC of 380. No clear ST changes although patient has what appears to be an artifact he does appear to have a Q-wave in 2 in aVL as well as V1 V2. Patient has a prior EKG from 12/18/2017 the majority of the leads have worse artifact on this EKG ball lateral leads do appear fairly similar. MDM Narrative Medical decision making narrative: Patient complains of headache, he states that it some more intense than his typical headaches. He is on Xarelto so head CT was ordered although he has had no recent trauma. Patient also has some chest pain and pressure along with shortness of breath although his shortness of breath is somewhat constant with his COPD. He does have a history of pulmonary embolism and is currently on Xarelto for this. Plan for cardiac enzymes, D-dimer patient's pulse is 98 he has normal oxygenation. Will re-evaluate after imaging. Patient's head CT is negative, chest x-ray is clear, no new EKG changes are appreciated. Lab work is normal except for elevated BUN and creatinine. Patient recently started chlorthalidone. Discussed that he should stop this medication and needs to follow up with primary care. Give him a lab script so that he can have his creatinine rechecked in the next 24-48 hours to make sure it is not continuing to rise. Also encouraged to increase oral hydration. He may continue his other home medications. Discharge Plan Departure Patient Disposition: Home Clinical Impression: Headache, Chest pain, Acute kidney injury Discharge Date/Time: 06/20/18 13:10 Interventions: ED Discharge Assessment Last Done: 06/20/18 13:11 Instructions: DI for Chest Pain Activity Restrictions/Additional Instructions: Follow up with your physician in the next 2-3 days for recheck of your kidney function. Make sure your drinking plenty of fluids over the next 24 hr. Your lab work shows your healed function is slightly decreased and that you are slightly dehydrated. You have been given a lab slip to get your kidney function rechecked in the next 24-48 hours Stop your new blood pressure medication chlorthalidone. You may continue your other medications. Return to the emergency department for worsening symptoms, recurrent severe headaches, new vision changes, new weakness, numbness difficulty with speech or movement, increasing or severe chest pain, shortness of breath, diaphoresis, persistent vomiting or other new or concerning symptoms. Prescriptions: No Action triamcinolone acetonide 0.5 % ointment 1 ea Topical PRN PRN (Reason: Skin Irritation) RF: 0 tamsulosin 0.4 mg capsule,extended release 24hr 0.4 mg PO QAM RF: 0 mirtazapine 30 mg tablet 30 mg PO QAM RF: 0 sertraline 25 mg tablet 25 mg PO QAM RF: 0 risperidone 1 mg tablet 1 mg PO QAM RF: 0 mv. min [facility]#[id number] 100-350-5 mcg-mcg-mg tablet,chewable 1 tab PO QAM RF: 0 zvezohze-uvhtmiwuapgn-safjnds 600-50-300 mg tablet 1 tab PO QAM RF: 0 losartan 100 mg tablet 100 mg PO DAILY RF: 0 omeprazole 20 mg PO DAILY RF: 0 rivaroxaban [Xarelto] 20 mg tablet 20 mg PO DAILY Qty: 30 RF: 3 oxycodone 5 mg tablet 5 mg PO Q4-6H PRN (Reason: pain) Qty: 30 RF: 0 Referrals: Provider,Conversion [Non-Staff] -
[2018-06-20] MEDS: ACETAMINOPHEN 325 MG TABLET 975 MG PO (10:55)
--- NOTE | 2018-06-20 10:55 | DI.CT.S_ITS ---
PROCEDURE: CT HEAD/BRAIN WO CON INDICATIONS: headache TECHNIQUE: Noncontrast 4.5 mm thick angled axial sections acquired from the foramen magnum to the vertex, with coronal and sagittal reformats. For radiation dose reduction, the following was used: automated exposure control, adjustment of mA and/or kV according to patient size. COMPARISON: [facility], CR, XR CHEST 1V, 06/20/2018, 10:37. FINDINGS: Image quality: Excellent. CSF spaces: Basal cisterns are patent. No extra-axial fluid collections. Ventricles are normal in size and shape. Brain: No midline shift. No intracranial masses or hemorrhage. Garsia-white matter interface is normal. Skull and face: Calvarium and visualized facial bones are intact, without suspicious lesions. Sinuses: Visualized sinuses and mastoids are clear. IMPRESSION: No acute intracranial process is seen. Specifically, no acute intracranial hemorrhage is seen. Dictated by: Juliocesar Yin M.D. on 06/20/2018 at 10:23 Approved by: Juliocesar Yin M.D. on 06/20/2018 at 10:24
[2018-06-20] MEDS: ASPIRIN 81 MG TAB 324 MG PO (10:57)
[2018-06-20 11:01] LABS: Add Manual Diff / Slide Review NO; Basophils Percent Auto 0.3 % (0-2); Eosinophils Percent Auto 0.9 % (2-4); Hematocrit 46.3 % (41-53); Hemoglobin 15.4 g/dL (13.5-17.5); Lymphocytes Percent Auto 25.9 % (25-40); Mean Corpuscular HGB Conc 33.2 % (30-36); Mean Corpuscular Hemoglobin 31.8 PG (26-34); Mean Corpuscular Volume 95.9 fL (80-100); Monocytes Percent Auto 12.6 % (3-14); Neutrophils Absolute Auto 7000 /uL (3000-5900); Neutrophils Percent Auto 60.3 % (50-75); Platelet Count 192 X10^3/uL (150-400); Red Blood Cell Count 4.83 X10^6/uL (4.5-5.9); Red Cell Distribution Width 15.2 % (11.6-14.8); White Blood Cell Count 11.7 X10^3/uL (4.5-11.0)
[2018-06-20 11:08] LABS: INR 1.3 (0.9-1.3); Prothrombin Time 14.3 SECONDS (10.1-12.7)
[2018-06-20 11:10] LABS: PTT Partial Thromboplastin Tim 33 SECONDS (26.4-36.2)
[2018-06-20 11:11] LABS: Alanine Aminotransferase 22 IU/L (21-72); Albumin 5.1 g/dL (3.5-5.0); Albumin Globulin Ratio 1.3 (1.0-2.8); Alkaline Phosphatase 98 U/L (38-126); Aspartate Aminotransferase 27 IU/L (17-59); BUN Creatinine Ratio 21.4 (6-22); Bilirubin Total 0.7 mg/dL (0.2-1.3); Blood Urea Nitrogen 30 mg/dL (9-20); Carbon Dioxide 27 mmol/L (22-32); Chloride 103 mmol/L (98-107); Creatine Kinase 133 U/L (55-170); Estimated Glomerular Filt Rate 52.4 mL/min (>60); Globulin 3.9 g/dL (1.7-4.1); Glucose 105 mg/dL (70-100); HEMOLYSIS < 15 (0-50); Lipase 249 U/L (23-300); Potassium 4.1 mmol/L (3.4-5.1); Sodium 143 mmol/L (137-145)
[2018-06-20 11:23] LABS: Troponin I < 0.012 ng/mL (0.01-0.034)
[2018-06-20 11:24] LABS: D Dimer < 200 ng/mL (<230)
[2018-06-20 11:26] LABS: CKMB % Relative Index 0.6 % (1.5-5.0); Creatine Kinase MB 0.83 ng/mL (<2.37)
[2018-06-20 12:01] VITALS: BP 133/86; PULSE 93; RESP 21; O2SAT 99
[2018-06-20 12:43] VITALS: BP 138/92; PULSE 99; RESP 22; O2SAT 100
[2018-06-20 13:11] VITALS: BP 138/74; PULSE 88; RESP 16
== END 2018-06-20 13:10 | disposition home or self-care (01) ==
PROVIDERS: Emergency Provider Emergency Medicine
DX: N17.9 Acute kidney failure, unspecified (principal); R51 Headache; R07.89 Other chest pain
CPT/HCPCS: 36415; 70450; 71045; 80053; 82550; 82553; 83690; 84484; 85025; 85379; 85610; 85730; 93005; 99283; 99285

== ENCOUNTER → 2018-06-21 14:38 | Outpatient (CLI) | payer OTHER, MEDICAID, SELFPAY ==
[2017-12-18 08:30] VITALS: BMI 23.0
[2018-06-21 15:53] LABS: BUN Creatinine Ratio 19.3 (6-22); Blood Urea Nitrogen 27 mg/dL (9-20); Calcium 9.9 mg/dL (8.4-10.2); Carbon Dioxide 28 mmol/L (22-32); Chloride 101 mmol/L (98-107); Estimated Glomerular Filt Rate 52.4 mL/min (>60); Glucose 108 mg/dL (70-100); HEMOLYSIS < 15 (0-50); Potassium 4.3 mmol/L (3.4-5.1); Sodium 143 mmol/L (137-145)
== END ==
PROVIDERS: Visit Provider Emergency Medicine
DX: N17.9 Acute kidney failure, unspecified (principal)
CPT/HCPCS: 36415; 80048

== ENCOUNTER → 2019-01-24 07:56 | Outpatient (CLI) | payer OTHER, MEDICAID, SELFPAY ==
[2017-12-18 08:30] VITALS: BMI 23.0
--- NOTE | 2019-01-24 08:13 | DI.CT.S_ITS ---
PROCEDURE: CT LUNG LOW DOSE SCREENING INDICATIONS: ENCOUTER FOR SCREENING FOR LUNG CANCER TECHNIQUE: Noncontrast 2.0-2.5 mm thick sections acquired from the pulmonary apices to the posterior costophrenic angles. 7 mm thick coronal and sagittal MIP reformats were then acquired. A low radiation dose technique was utilized. COMPARISON: [facility], CT, CT ANGIO CHEST PE PROTOCOL, 12/18/2017, 2:54. FINDINGS: Image quality: Diagnostic, given the low radiation dose technique. Lungs and pleura: There is irregular pleural thickening with adjacent subpleural interstitial thickening and scarring in the posterior right lower lobe in the area of prior extensive airspace opacity. No pleural effusion. Minor atelectatic or gravitational changes are present in the left posterior costophrenic sulcus. There is a single linear solid nodular density in the subpleural lateral left upper lobe measuring about 4 mm which may be vascular. There are [id number]-[id number] emphysematous upper lobe changes. Mediastinum: Heart size is normal. No pericardial effusion. No mediastinal adenopathy by size criteria. Thoracic aorta and central pulmonary arteries are normal in size. Esophagus is normal in caliber. No hiatal hernia. Bones and chest wall: No suspicious bony lesions. No vertebral body compression fractures. No axillary or supraclavicular adenopathy by size criteria. Thyroid gland appears normal. Abdomen: Visualized upper abdomen solid organs and bowel loops appear normal in the absence of contrast. IMPRESSION: 1. There is a single linear new solid nodule measuring about 4 mm in the left lateral upper lobe. This is likely benign. 2. Onxq-jv-cvfafujn emphysematous changes. 3. Irregular pleural thickening and interstitial scarring at the right lung base, likely resolving infection or inflammation seen previously. LUNG-RADS category 3; followup low dose chest CT in 6 months. Dictated by: Marisabel Wild M.D. on 01/24/2019 at 8:44 Approved by: Marisabel Wild M.D. on 01/24/2019 at 9:00
== END ==
PROVIDERS: Visit Provider Internal Medicine
DX: Z12.2 Encounter for screening for malignant neoplasm of respiratory organs (principal); R91.1 Solitary pulmonary nodule; J43.9 Emphysema, unspecified; J98.4 Other disorders of lung
CPT/HCPCS: 71250

== ENCOUNTER 2019-02-11 13:28 | Emergency (ER) | payer OTHER, MEDICAID, SELFPAY ==
[2017-12-18 08:30] VITALS: BMI 23.0
[2019-02-11 13:34] VITALS: BP 143/97; PULSE 84; RESP 20; TEMP 36.7; O2SAT 97
--- NOTE | 2019-02-11 13:39 | ED.MALEGU ---
HPI - Male Genitourinary <LETICIA Guerin - Last Filed: 02/12/19 00:32> General Chief complaint: Urogenital-Male Stated complaint: Groin pain Time Seen by Provider: 02/11/19 13:28 Source: patient Mode of arrival: ambulatory Limitations: no limitations History of Present Illness HPI Narrative: This is a 58-year-old male, smoker, with extensive medical history who presents to ED in chief complaining of right groin pain since . He has history of HIV who is on current triple medication therapy, pulmonary embolism and anticoagulated, depression, hypertension, GERD, testicular torsion with the removal of a testis. The patient reports discoloration and cloudiness of his urine. The patient reports he is not current is sexually active. He denies penile discharge, right testicular warmth or swelling, fever, chills, abdominal pain, nausea, or vomiting. He denies chest pain, difficulty breathing, calf pain. He reports he is not sure which side of his testis had a torsion or removal. Related Data Home Medications Medication Instructions Recorded Confirmed [id number] 1 tab PO QAM 12/18/17 02/11/19 mirtazapine 30 mg PO QPM 12/18/17 02/11/19 risperidone 1 mg PO QPM 12/18/17 02/11/19 sertraline 25 mg PO QAM 12/18/17 02/11/19 tamsulosin 0.8 mg PO QAM 12/18/17 02/11/19 triamcinolone acetonide 1 ea TOPICAL PRN PRN 12/18/17 02/11/19 losartan 100 mg PO DAILY 12/19/17 02/11/19 atorvastatin 40 mg PO QPM 02/11/19 02/11/19 bupropion HCl 150 mg PO BID 02/11/19 02/11/19 fluticasone propionate 2 spray INTRANASAL DAILY 02/11/19 02/11/19 ibuprofen 400 mg PO Q6H PRN 02/11/19 02/11/19 omeprazole 20 mg PO DAILY 02/11/19 02/11/19 Previous Rx's Medication Instructions Recorded rivaroxaban [Xarelto] 20 mg PO DAILY #30 tab 12/23/17 levofloxacin [Levaquin] 500 mg PO DAILY 10 Days #10 tab 02/11/19 Allergies Allergy/AdvReac Type Severity Reaction Status Date / Time No Known Drug Allergies Allergy Verified 12/17/17 22:46 Review of Systems <LETICIA Guerin - Last Filed: 02/12/19 00:32> Review of Systems General: See HPI HEENT: Denies sinus pain, ear pain, sore throat, difficulty swallowing, dizziness. Respiratory: Denies dyspnea, cough, wheezing, hemoptysis, sputum. Cardiovascular: Denies chest pain, palpitations, orthopnea, edema. Gastrointestinal: Denies nausea, vomiting, abdominal pain, diarrhea, constipation, melena. : Reports right scrotal merge testicular pain without swelling. Reports cloudy and dark urine and he thinks this is caused by his current medication Xarelto which had happened before. Denies dysuria, frequency, incontinence, hematuria, urinary retention. Musculoskeletal: Denies weakness, joint pain or bony pain. Skin: Denies redness to right groin. Denies rash, skin lesions, or other. Neurologic: Denies weakness, headache, numbness, change in speech, confusion, seizures, incoordination. Psychiatric: No concerning psychosocial issues. 12-point review of systems is negative except for those stated above. PFSH <LETICIA Guerin - Last Filed: 02/12/19 00:32> Medical History COPD (chronic obstructive pulmonary disease) (Acute) Depression (Acute) Pulmonary embolism (Acute) HIV disease (Chronic) Hypertension (Chronic) Surgical History (Updated 02/12/19 @ 00:20 by LETICIA Guerin) History of excision of testis (Chronic) Family History (Updated 02/12/19 @ 00:17 by LETICIA Guerin) Other Family history non-contributory Social History household members: none Smoking Status: Current every day smoker alcohol intake: former Social History household members: none Smoking Status: Current every day smoker alcohol intake: former Exam <LETICIA Guerin - Last Filed: 02/12/19 00:32> Narrative Exam Narrative: GEN: Alert, oriented x 3, well appearing and nourished, and in no acute distress. Head: Normal cephalic, atraumatic. No scalp or temporal tenderness, palpable mass or rash. EYES: Pupils are equal, round, and reactive to light and accommodation. Extraocular muscles are intact bilaterally. There is no subconjunctival hemorrhage, exudate and sclera non-icteric. ENT: Hearing grossly intact. Nose without bleeding, purulent discharge. Mucous membrane moist, no mucosal lesion. Throat without erythema, tonsillar hypertrophy or exudate. Uvula in midline, airway patent. Neck: Trachea in midline. No JVD, non-tender without lymphadenopathy. No masses or thyroid megaly. Supple, non-tender and meningeal signs. CARDIAC: Normal regular rate and rhythm without murmurs, gallops, or rubs. No chest wall tenderness. No peripheral edema, cyanosis or pallor. Capillary refill is less than 2 seconds. RESPIRATORY: Lungs are cleat to auscultate bilaterally. No cough, wheezes, rales, or rhonchi. No stridor, respiratory distress, increase work of breathing, or accessary muscle used. ABD: Abdomen soft, nontender and non-distended. No guarding or rebound tenderness to palpate. Bowel sounds are normal in all 4 quadrants. There is no palpable masses or organomegaly. : L testis abscent. R testis tender to light palpation and warmth to touch. No significant swelling noted. EXT: Full painless ROM of all extremities with no loss of sensation, strength, effusion or edema. SKIN: Warm, dry, normal color for patient. No erythema, lesions or rash. BACK: Nontender without deformity or crepitance. No flank tenderness. NEUROLOGICAL: Alert and oriented to place, time and person. Sensation and motor function intact bilaterally. No facial droops, dysphasia. PSYCHIATRIC: Good judgement and reason, without hallucinations, abnormal affect or abnormal behaviors during the examination. Initial Vital Signs Initial Vital Signs: Vital Signs Temperature 98.1 F 02/11/19 13:34 Pulse Rate 84 02/11/19 13:34 Respiratory Rate 20 02/11/19 13:34 Blood Pressure 143/97 H 02/11/19 13:34 Pulse Oximetry 97 02/11/19 13:34 <Jasmine Marinelli MD - Last Filed: 02/13/19 07:45> Initial Vital Signs Initial Vital Signs: Vital Signs Temperature 98.1 F 02/11/19 13:34 Pulse Rate 84 02/11/19 13:34 Respiratory Rate 20 02/11/19 13:34 Blood Pressure 143/97 H 02/11/19 13:34 Pulse Oximetry 97 02/11/19 13:34 Course <LETICIA Guerin - Last Filed: 02/12/19 00:32> Orders Ordered: Discontinued Medications Ceftriaxone Sodium (Rocephin) 250 mg IM NOW ONE Stop: 02/11/19 15:43 Last Admin: 02/11/19 16:04 Dose: 250 mg Levofloxacin (Levaquin) 500 mg PO NOW ONE Stop: 02/11/19 15:43 Last Admin: 02/11/19 15:51 Dose: 500 mg Vital Signs - 8 hr 02/11/19 13:34 02/11/19 15:43 Temperature 98.1 F Pulse Rate 84 69 Respiratory Rate 20 Blood Pressure 143/97 H Blood Pressure [Left Arm] 171/92 H Pulse Oximetry 97 99 <Jasmine Marinelli MD - Last Filed: 02/13/19 07:45> Orders Ordered: Discontinued Medications Ceftriaxone Sodium (Rocephin) 250 mg IM NOW ONE Stop: 02/11/19 15:43 Last Admin: 02/11/19 16:04 Dose: 250 mg Levofloxacin (Levaquin) 500 mg PO NOW ONE Stop: 02/11/19 15:43 Last Admin: 02/11/19 15:51 Dose: 500 mg Vital Signs - 8 hr 02/11/19 13:34 02/11/19 15:43 Temperature 98.1 F Pulse Rate 84 69 Respiratory Rate 20 Blood Pressure 143/97 H Blood Pressure [Left Arm] 171/92 H Pulse Oximetry 97 99 MDM - Male Genitourinary <LETICIA Guerin - Last Filed: 02/12/19 00:32> Differential Diagnosis Likely urinary tract infection, epididymitis, inguinal hernia and other (torsion, STIs, testicular tumor) Medical Records Attestation: I reviewed the patient's medical records. Lab Data Attestation: I reviewed the patient's lab results. Result diagrams: 02/11/19 15:59 Lab Results 02/11/19 02/11/19 02/11/19 Range/Units 13:58 14:15 15:59 WBC 7.8 (4.5-11.0) X10^3/uL RBC 4.44 L (4.5-5.9) X10^6/uL Hgb 14.0 (13.5-17.5) g/dL Hct 41.5 (41-53) % MCV 93.4 (80-100) fL MCH 31.5 (26-34) PG MCHC 33.8 (30-36) % RDW 15.2 H (11.6-14.8) % Plt Count 189 (150-400) X10^3/uL Neut % (Auto) 57.1 (50-75) % Lymph % (Auto) 32.4 (25-40) % [place] % (Auto) 8.0 (3-14) % Eos % (Auto) 2.2 (2-4) % Baso % (Auto) 0.3 (0-2) % Neut # (Auto) 4500 (1504-6949) /uL Lymph # (Auto) 2500 (0971-2100) /uL [place] # (Auto) 600 (0-900) /uL Eos # (Auto) 200 (0-450) /uL Baso # (Auto) 0 (0-100) /uL Urine Color Yellow Urine Appearance Sl cloudy Urine pH 5.5 (4.5-8.0) Ur Specific [place] 1.025 (1.000-1.035) Urine Protein 1+ H (Negative) Urine Glucose (UA) Negative (Negative) g/dL Urine Ketones Trace H (NEGATIVE) Urine Occult Blood 3+ H (Negative) Urine Nitrate Negative (Negative) Urine Bilirubin Negative (NEGATIVE) Urine Urobilinogen 0.2 (0.2) E.U./dL Ur Leukocyte Esterase Negative (NEGATIVE) Urine RBC 30-100/hpf H (0-5/HPF) Urine WBC 0-1/hpf (0-5/HPF) Ur Squamous Epith Cells 0-1 /hpf (0-5/HPF) Urine Bacteria None seen (None) Urine Mucus 1+ H (Negative) Ur Culture Indicated? Cult not indicated Ur Chlamydia DNA (PCR) Not detected N gonorrhoeae DNA (PCR) Not detected Imaging Data US-scrotum: Radiologist's impression: [address] [address] Ultrasound Report Signed Patient: Olu WeinsteinMR#: [id number] : [id number]:[id number] Age/Sex: 58 / MDate of Service: 02/11/19 Loc: ED Accession Number: [id number] Procedure: US scrotum Ordering Provider: Duncan Booker PROCEDURE: US SCROTUM INDICATIONS: R GROIN PAIN, HX OF TORSION, UNSURE LOCATION TECHNIQUE: Real-time scanning was performed of the scrotum and testicles, with image documentation. Color and pulse Doppler interrogation was performed of both testicles. COMPARISON: US, TESTICULAR SONO W/DOPP (PNL), 01/30/2015, 11:22. [facility], US, TESTICLE IMAGING, 01/30/2015, 2:31. FINDINGS: Right: Testicle measures 3.5 x 1.6 x 2.6 cm. There are a few clustered cystic structures within the testicle, with the largest measuring up to 1.1 x 0.7 x 1.0 cm. There internal fluid-debris levels within the collections. No vascularity demonstrated within the cystic structures on color Doppler interrogation. Epididymis is normal in overall size and grossly normal in morphology. No hydrocele or varicoceles. Overlying scrotal skin is normal in thickness. Left: Surgically absent. Doppler: There is patent low resistance low amplitude arterial flow demonstrated in the right testicle. IMPRESSION: 1. Multiple clustered cystic structures within the right testicle with internal fluid-debris levels. Differential considerations include severe cystic transformation of the rete testes or intratesticular spermatocele with associated superimposed infectious or inflammatory changes, intratesticular abscess, or cystic neoplasm such as a germ cell tumor. Recommend urologic consultation. 2. Patent low resistance arterial flow without definite evidence of torsion at this time. Dictated by: Jonatan Hampton M.D. on 02/11/2019 at 15:04 Approved by: Jonatan Hampton M.D. on 02/11/2019 at 15:16 MDM Narrative Medical decision making narrative: This is a 58-year-old male who has a history of HIV, previous testicular torsion with excision, pulmonary embolism who is on anticoagulant, BPH presents with right groin/testicular pain since with cloudy and discoloration of the urine. He denies constitutional symptoms or flank pain. Patient denies redness or swelling on right groin/testicle. Patient denies injury or trauma. Patient reports not currently sexually active. Given patient's history urine sample was obtained for urinary tract infection/bladder infection. Ultrasound of right scrotum was obtained to rule out another torsion. However ultrasound indicates good arterial flow without definite evidence of torsion at this time. The US test indicates multiple clustered cystic structures within the right testicle with internal fluid-debris levels possibly due to severe cystic transformation of the rete testis or intratesticular spermatocele with this associated superimposed infectious or inflammatory changes, intratesticular abscess, or cystic neoplasm such as a germ cell tumor. The CBC was obtained and indicates no increase in WBC or neutrophils. Patient was treated with Rocephin 250 mg IM injection and Levaquin 500 mg p.o. before discharge to home to cover both complicated UTI and possibly epididymitis. We discussed in length that he needs close follow-up with urologist soon as possible. Patient was provided with scheduled regional urology clinic and to contact day at [phone] on Tuesday and patient verbalized understanding. Patient was advised to complete course of antibiotic medications and his urine is being cultured and he will be contacted if he needs additional antibiotic medication coverage changing his antibiotic medication. Patient has no further questions at this time and agrees with plan of treatment. <Jasmine Marinelli MD - Last Filed: 02/13/19 07:45> Lab Data Lab Results 02/11/19 02/11/19 02/11/19 Range/Units 13:58 14:15 15:59 WBC 7.8 (4.5-11.0) X10^3/uL RBC 4.44 L (4.5-5.9) X10^6/uL Hgb 14.0 (13.5-17.5) g/dL Hct 41.5 (41-53) % MCV 93.4 (80-100) fL MCH 31.5 (26-34) PG MCHC 33.8 (30-36) % RDW 15.2 H (11.6-14.8) % Plt Count 189 (150-400) X10^3/uL Neut % (Auto) 57.1 (50-75) % Lymph % (Auto) 32.4 (25-40) % [place] % (Auto) 8.0 (3-14) % Eos % (Auto) 2.2 (2-4) % Baso % (Auto) 0.3 (0-2) % Neut # (Auto) 4500 (2694-2870) /uL Lymph # (Auto) 2500 (3235-6087) /uL [place] # (Auto) 600 (0-900) /uL Eos # (Auto) 200 (0-450) /uL Baso # (Auto) 0 (0-100) /uL Urine Color Yellow Urine Appearance Sl cloudy Urine pH 5.5 (4.5-8.0) Ur Specific [place] 1.025 (1.000-1.035) Urine Protein 1+ H (Negative) Urine Glucose (UA) Negative (Negative) g/dL Urine Ketones Trace H (NEGATIVE) Urine Occult Blood 3+ H (Negative) Urine Nitrate Negative (Negative) Urine Bilirubin Negative (NEGATIVE) Urine Urobilinogen 0.2 (0.2) E.U./dL Ur Leukocyte Esterase Negative (NEGATIVE) Urine RBC 30-100/hpf H (0-5/HPF) Urine WBC 0-1/hpf (0-5/HPF) Ur Squamous Epith Cells 0-1 /hpf (0-5/HPF) Urine Bacteria None seen (None) Urine Mucus 1+ H (Negative) Ur Culture Indicated? Cult not indicated Ur Chlamydia DNA (PCR) Not detected N gonorrhoeae DNA (PCR) Not detected Discharge Plan Departure Patient Disposition: Home Clinical Impression: Inflammatory testicular mass UTI (urinary tract infection) Qualifiers: Urinary tract infection type: site unspecified Hematuria presence: with hematuria Qualified Code(s): N39.0 - Urinary tract infection, site not specified Discharge Date/Time: 02/11/19 16:47 Interventions: ED Discharge Assessment Last Done: 02/11/19 16:47 Instructions: DI for Urinary Tract Infection (UTI), DI for Testicular Pain Activity Restrictions/Additional Instructions: You have been diagnosed with [ UTI and testicular pain and possible mass, abscess, inflammation/infection, neoplasm ]. Your blood test for CBC looked good. Your urine is being cultured but it appears to be you are having an infection. US test finding indicate that you need to follow with urologist for additional evaluation for findings as above. What to do: *Take your medications as directed. Your Rx has been faxed to [email or web address] and please complete until it is gone. *Follow up with your primary care provider in 2-3 days and please call [facility] at [phone] on Tuesday and call for an appointment. Let them know you were seen in the ED and that we asked you to be seen in follow up. *Return to ED if you have any new, worsening, or concerning symptoms, such as [increasing pain/swelling/redness, fever, unable to tolerate fluids, chest pain, breathing difficulty, dizziness or any acute concerns]. Prescriptions: New levofloxacin [Levaquin] 500 mg tablet 500 mg PO DAILY 10 Days Qty: 10 RF: 0 No Action triamcinolone acetonide 0.5 % ointment 1 ea Topical PRN PRN (Reason: Skin Irritation) RF: 0 tamsulosin 0.4 mg capsule,extended release 24hr 0.8 mg PO QAM RF: 0 mirtazapine 30 mg tablet 30 mg PO QPM RF: 0 sertraline 25 mg tablet 25 mg PO QAM RF: 0 risperidone 1 mg tablet 1 mg PO QPM RF: 0 uarpzerq-xlcgjjkelmjl-qspnbzs 600-50-300 mg tablet 1 tab PO QAM RF: 0 losartan 100 mg tablet 100 mg PO DAILY RF: 0 Xarelto 20 mg tablet 20 mg PO DAILY Qty: 30 RF: 3 atorvastatin 40 mg Tablet 40 mg PO QPM RF: 0 bupropion HCl 150 mg Tablet Sustained-Release 12 Hr 150 mg PO BID RF: 0 ibuprofen 400 mg Tablet 400 mg PO Q6H PRN (Reason: Pain, Moderate) RF: 0 omeprazole 20 mg Capsule,Delayed Release(Dr/Ec) 20 mg PO DAILY RF: 0 fluticasone propionate 50 mcg/actuation [place],Suspension 2 spray INTRANASAL DAILY RF: 0 Referrals: [facility] [Outside] ( ) Beth Connor ARNP [Primary Care Provider] -
--- NOTE | 2019-02-11 13:59 | PC.NURSE ---
Pt reports that his urine discoloration is related to him taking xarelto. He noticed lighting of color when he stopped taking it for a couple of days and return of it darkening when he started again. He reports it feels like he's been kicked in the groin although he denies any trauma to the area. He denies N/V or fevers.
[2019-02-11 14:00] LABS: Bacteria Urine None Seen
[2019-02-11 14:03] LABS: Appearance Urine UA SL CLOUDY; Bilirubin Urine UA NEGATIVE (NEGATIVE); Color Urine UA YELLOW; Glucose Urine UA NEGATIVE (Negative); Ketones Urine UA TRACE (NEGATIVE); Leukocyte Esterase Urine UA NEGATIVE (NEGATIVE); Nitrite Urine UA NEGATIVE (Negative); Occult Blood Urine UA 3+ (Negative); Protein Urine UA 1+ (Negative); Specific Gravity Urine UA 1.025 (1.000-1.035); Urobilinogen Urine UA 0.2 E.U./dL (0.2); pH Urine UA 5.5 (4.5-8.0)
[2019-02-11 14:13] LABS: Culture Indicated Urine Cult Not Indicated; Mucus Urine 1+ (Negative); RBC Urine 30-100/HPF (0-5/HPF); Squamous Epithelial Cell Urine 0-1 /HPF (0-5/HPF); WBC Urine 0-1/HPF (0-5/HPF)
[2019-02-11 15:29] LABS: Urine N gonorrhoeae NOT DETECTED
[2019-02-11 15:33] LABS: Urine Chlamydia NOT DETECTED
[2019-02-11 15:43] VITALS: BP 171/92; PULSE 69; O2SAT 99
[2019-02-11] MEDS: levoFLOXacin 250 MG TABLET 500 MG PO (15:51)
[2019-02-11] MEDS: cefTRIAXone 500 MG VIAL 250 MG IM (16:04)
[2019-02-11 16:05] LABS: Add Manual Diff / Slide Review NO; Basophils Absolute Auto 0 /uL (0-100); Basophils Percent Auto 0.3 % (0-2); Eosinophils Absolute Auto 200 /uL (0-450); Eosinophils Percent Auto 2.2 % (2-4); Hematocrit 41.5 % (41-53); Lymphocytes Absolute Auto 2500 /uL (1100-4500); Lymphocytes Percent Auto 32.4 % (25-40); Mean Corpuscular HGB Conc 33.8 % (30-36); Mean Corpuscular Hemoglobin 31.5 PG (26-34); Mean Corpuscular Volume 93.4 fL (80-100); Monocytes Absolute Auto 600 /uL (0-900); Neutrophils Absolute Auto 4500 /uL (1500-7000); Neutrophils Percent Auto 57.1 % (50-75); Platelet Count 189 X10^3/uL (150-400); Red Blood Cell Count 4.44 X10^6/uL (4.5-5.9); Red Cell Distribution Width 15.2 % (11.6-14.8); White Blood Cell Count 7.8 X10^3/uL (4.5-11.0)
--- NOTE | 2019-02-11 16:13 | ED_ITS ---
HPI - Male Genitourinary <LETICIA Guerin - Last Filed: 02/12/19 00:32> General Chief complaint: Urogenital-Male Stated complaint: Groin pain Time Seen by Provider: 02/11/19 13:28 Source: patient Mode of arrival: ambulatory Limitations: no limitations History of Present Illness HPI Narrative: This is a 58-year-old male, smoker, with extensive medical history who presents to ED in chief complaining of right groin pain since . He has history of HIV who is on current triple medication therapy, pulmonary embolism and anticoagulated, depression, hypertension, GERD, testicula r torsion with the removal of a testis. The patient reports discoloration and cloudiness of his urine. The patient reports he is not current is sexually active. He denies penile discharge, right testicular warmth or swelling, fever, chills, abdominal pain, nausea, or vomiting. He denies chest pain, difficulty breathing, calf pain. He reports he is not sure which side of his testis had a torsion or removal. Related Data Home Medications Medication Instructions Recorded Confirmed qmcaheww-zogtzylqgkvt-ugucgar 1 tab PO QAM 12/18/17 02/11/19 mirtazapine 30 mg PO QPM 12/18/17 02/11/19 risperidone 1 mg PO QPM 12/18/17 02/11/19 sertraline 25 mg PO QAM 12/18/17 02/11/19 tamsulosin 0.8 mg PO QAM 12/18/17 02/11/19 triamcinolone acetonide 1 ea TOPICAL PRN PRN 12/18/17 02/11/19 losartan 100 mg PO DAILY 12/19/17 02/11/19 atorvastatin 40 mg PO QPM 02/11/19 02/11/19 bupropion HCl 150 mg PO BID 02/11/19 02/11/19 fluticasone propionate 2 spray INTRANASAL DAILY 02/11/19 02/11/19 ibuprofen 400 mg PO Q6H PRN 02/11/19 02/11/19 omeprazole 20 mg PO DAILY 02/11/19 02/11/19 Previous Rx's Medication Instructions Recorded rivaroxaban [Xarelto] 20 mg PO DAILY #30 tab 12/23/17 levofloxacin [Levaquin] 500 mg PO DAILY 10 Days #10 tab 02/11/19 Allergies Allergy/AdvReac Type Severity Reaction Status Date / Time No Known Drug Allergies Allergy Verified 12/17/17 22:46 Review of Systems <LETICIA Guerin - Last Filed: 02/12/19 00:32> Review of Systems General: See HPI HEENT: Denies sinus pain, ear pain, sore throat, difficulty swallowing, dizziness. Respiratory: Denies dyspnea, cough, wheezing, hemoptysis, sputum. Cardiovascular: Denies chest pain, palpitations, orthopnea, edema. Gastrointestinal: Denies nausea, vomiting, abdominal pain, diarrhea, constipation, melena. : Reports right scrotal merge testicular pain without swelling. Reports cloudy and dark urine and he thinks this is caused by his current medication Xarelto which had happened before. Denies dysuria, frequency, incontinence, hematuria, urinary retention. Musculoskeletal: Denies weakness, joint pain or bony pain. Skin: Denies redness to right groin. Denies rash, skin lesions, or other. Neurologic: Denies weakness, headache, numbness, change in speech, confusion, seizures, incoordination. Psychiatric: No concerning psychosocial issues. 12-point review of systems is negative except for those stated above. PFSH <LETICIA Guerin - Last Filed: 02/12/19 00:32> Medical History COPD (chronic obstructive pulmonary disease) (Acute) Depression (Acute) Pulmonary embolism (Acute) HIV disease (Chronic) Hypertension (Chronic) Surgical History (Updated 02/12/19 @ 00:20 by LETICIA Guerin) History of excision of testis (Chronic) Family History (Updated 02/12/19 @ 00:17 by LETICIA Guerin) Other Family history non-contributory Social History household members: none Smoking Status: Current every day smoker alcohol intake: former Social History household members: none Smoking Status: Current every day smoker alcohol intake: former Exam <LETICIA Guerin - Last Filed: 02/12/19 00:32> Narrative Exam Narrative: GEN: Alert, oriented x 3, well appearing and nourished, and in no acute distress. Head: Normal cephalic, atraumatic. No scalp or temporal tenderness, palpable mass or rash. EYES: Pupils are equal, round, and reactive to light and accommodation. Extraocular muscles are intact bilaterally. There is no subconjunctival hemorrhage, exudate and sclera non-icteric. ENT: Hearing grossly intact. Nose without bleeding, purulent discharge. Mucous membrane moist, no mucosal lesion. Throat without erythema, tonsillar hypertrophy or exudate. Uvula in midline, airway patent. Neck: Trachea in midline. No JVD, non-tender without lymphadenopathy. No masses or thyroid megaly. Supple, non-tender and meningeal signs. CARDIAC: Normal regular rate and rhythm without murmurs, gallops, or rubs. No chest wall tenderness. No peripheral edema, cyanosis or pallor. Capillary refill is less than 2 seconds. RESPIRATORY: Lungs are cleat to auscultate bilaterally. No cough, wheezes, rales, or rhonchi. No stridor, respiratory distress, increase work of breathing, or accessary muscle used. ABD: Abdomen soft, nontender and non-distended. No guarding or rebound tenderness to palpate. Bowel sounds are normal in all 4 quadrants. There is no palpable masses or organomegaly. : L testis abscent. R testis tender to light palpation and warmth to touch. No significant swelling noted. EXT: Full painless ROM of all extremities with no loss of sensation, strength, effusion or edema. SKIN: Warm, dry, normal color for patient. No erythema, lesions or rash. BACK: Nontender without deformity or crepitance. No flank tenderness. NEUROLOGICAL: Alert and oriented to place, time and person. Sensation and motor function intact bilaterally. No facial droops, dysphasia. PSYCHIATRIC: Good judgement and reason, without hallucinations, abnormal affect or abnormal behaviors during the examination. Initial Vital Signs Initial Vital Signs: Vital Signs Temperature 98.1 F 02/11/19 13:34 Pulse Rate 84 02/11/19 13:34 Respiratory Rate 20 02/11/19 13:34 Blood Pressure 143/97 H 02/11/19 13:34 Pulse Oximetry 97 02/11/19 13:34 <Jasmine Marinelli MD - Last Filed: 02/13/19 07:45> Initial Vital Signs Initial Vital Signs: Vital Signs Temperature 98.1 F 02/11/19 13:34 Pulse Rate 84 02/11/19 13:34 Respiratory Rate 20 02/11/19 13:34 Blood Pressure 143/97 H 02/11/19 13:34 Pulse Oximetry 97 02/11/19 13:34 Course <LETICIA Guerin - Last Filed: 02/12/19 00:32> Orders Ordered: Discontinued Medications Ceftriaxone Sodium (Rocephin) 250 mg IM NOW ONE Stop: 02/11/19 15:43 Last Admin: 02/11/19 16:04 Dose: 250 mg Levofloxacin (Levaquin) 500 mg PO NOW ONE Stop: 02/11/19 15:43 Last Admin: 02/11/19 15:51 Dose: 500 mg Vital Signs - 8 hr 02/11/19 13:34 02/11/19 15:43 Temperature 98.1 F Pulse Rate 84 69 Respiratory Rate 20 Blood Pressure 143/97 H Blood Pressure [Left Arm] 171/92 H Pulse Oximetry 97 99 <Jasmine Marinelli MD - Last Filed: 02/13/19 07:45> Orders Ordered: Discontinued Medications Ceftriaxone Sodium (Rocephin) 250 mg IM NOW ONE Stop: 02/11/19 15:43 Last Admin: 02/11/19 16:04 Dose: 250 mg Levofloxacin (Levaquin) 500 mg PO NOW ONE Stop: 02/11/19 15:43 Last Admin: 02/11/19 15:51 Dose: 500 mg Vital Signs - 8 hr 02/11/19 13:34 02/11/19 15:43 Temperature 98.1 F Pulse Rate 84 69 Respiratory Rate 20 Blood Pressure 143/97 H Blood Pressure [Left Arm] 171/92 H Pulse Oximetry 97 99 MDM - Male Genitourinary <LETICIA Guerin - Last Filed: 02/12/19 00:32> Differential Diagnosis Likely urinary tract infection, epididymitis, inguinal hernia and other (torsion, STIs, testicular tumor) Medical Records Attestation: I reviewed the patient's medical records. Lab Data Attestation: I reviewed the patient's lab results. Result diagrams: 02/11/19 15:59 Lab Results 02/11/19 02/11/19 02/11/19 Range/Units 13:58 14:15 15:59 WBC 7.8 (4.5-11.0) X10^3/uL RBC 4.44 L (4.5-5.9) X10^6/uL Hgb 14.0 (13.5-17.5) g/dL Hct 41.5 (41-53) % MCV 93.4 (80-100) fL MCH 31.5 (26-34) PG MCHC 33.8 (30-36) % RDW 15.2 H (11.6-14.8) % Plt Count 189 (150-400) X10^3/uL Neut % (Auto) 57.1 (50-75) % Lymph % (Auto) 32.4 (25-40) % [place] % (Auto) 8.0 (3-14) % Eos % (Auto) 2.2 (2-4) % Baso % (Auto) 0.3 (0-2) % Neut # (Auto) 4500 (6978-7151) /uL Lymph # (Auto) 2500 (0971-7927) /uL [place] # (Auto) 600 (0-900) /uL Eos # (Auto) 200 (0-450) /uL Baso # (Auto) 0 (0-100) /uL Urine Color Yellow Urine Appearance Sl cloudy Urine pH 5.5 (4.5-8.0) Ur Specific [place] 1.025 (1.000-1.035) Urine Protein 1+ H (Negative) Urine Glucose (UA) Negative (Negative) g/dL Urine Ketones Trace H (NEGATIVE) Urine Occult Blood 3+ H (Negative) Urine Nitrate Negative (Negative) Urine Bilirubin Negative (NEGATIVE) Urine Urobilinogen 0.2 (0.2) E.U./dL Ur Leukocyte Esterase Negative (NEGATIVE) Urine RBC 30-100/hpf H (0-5/HPF) Urine WBC 0-1/hpf (0-5/HPF) Ur Squamous Epith Cells 0-1 /hpf (0-5/HPF) Urine Bacteria None seen (None) Urine Mucus 1+ H (Negative) Ur Culture Indicated? Cult not indicated Ur Chlamydia DNA (PCR) Not detected N gonorrhoeae DNA (PCR) Not detected Imaging Data US-scrotum: Radiologist's impression: [address] [address] Ultrasound Report Signed Patient: Olu WeinsteinMR#: [id number] : 1Acct:[id number] Age/Sex: 58 / MDate of Service: 02/11/19 Loc: ED Accession Number: [id number] Procedure: US scrotum Ordering Provider: Duncan Booker PROCEDURE: US SCROTUM INDICATIONS: R GROIN PAIN, HX OF TORSION, UNSURE LOCATION TECHNIQUE: Real-time scanning was performed of the scrotum and testicles, with image documentation. Color and pulse Doppler interrogation was performed of both testicles. COMPARISON: US, TESTICULAR SONO W/DOPP (PNL), 01/30/2015, 11:22. Located Within [facility], US, TESTICLE IMAGING, 01/30/2015, 2:31. FINDINGS: Right: Testicle measures 3.5 x 1.6 x 2.6 cm. There are a few clustered cystic structures within the testicle, with the largest measuring up to 1.1 x 0.7 x 1.0 cm. There internal fluid-debris levels within the collections. No vascularity demonstrated within the cystic structures on color Doppler interrogation. Epididymis is normal in overall size and grossly normal in morphology. No hydrocele or varicoceles. Overlying scrotal skin is normal in thickness. Left: Surgically absent. Doppler: There is patent low resistance low amplitude arterial flow demonstrated in the right testicle. IMPRESSION: 1. Multiple clustered cystic structures within the right testicle with internal fluid-debris levels. Differential considerations include severe cystic transformation of the rete testes or intratesticular spermatocele with associated superimposed infectious or inflammatory changes, intratesticular abscess, or cystic neoplasm such as a germ cell tumor. Recommend urologic consultation. 2. Patent low resistance arterial flow without definite evidence of torsion at this time. Dictated by: Jonatan Hampton M.D. on 02/11/2019 at 15:04 Approved by: Jonatan Hampton M.D. on 02/11/2019 at 15:16 MDM Narrative Medical decision making narrative: This is a 58-year-old male who has a history of HIV, previous testicular torsion with excision, pulmonary embolism who is on anticoagulant, BPH presents with right groin/testicular pain since with cloudy and discoloration of the urine. He denies constitutional symptoms or flank pain. Patient denies redness or swelling on right groin/testicle. Patient denies injury or trauma. Patient reports not currently sexually active. Given patient's history urine sample was obtained for urinary tract infection/bladder infection. Ultrasound of right scrotum was obtained to rule out another torsion. However ultrasound indicates good arterial flow without definite evidence of torsion at this time. The US test indicates multiple clustered cystic structures within the right testicle with internal fluid-debris levels possibly due to severe cystic transformation of the rete testis or intr atesticular spermatocele with this associated superimposed infectious or inflammatory changes, intratesticular abscess, or cystic neoplasm such as a germ cell tumor. The CBC was obtained and indicates no increase in WBC or neutrophils. Patient was treated with Rocephin 250 mg IM injection and Levaquin 500 mg p.o. before discharge to home to cover both complicated UTI and possibly epididymitis. We discussed in length that he needs close follow-up with urologist soon as possible. Patient was provided with scheduled regional urology clinic and to contact day at [phone] on Tuesday and patient verbalized understanding. Patient was advised to complete course of antibiotic medications and his urine is being cultured and he will be contacted if he needs additional antibiotic medication coverage changing his antibiotic medication. Patient has no further questions at this time and agrees with plan of treatment. <Jasmine Marinelli MD - Last Filed: 02/13/19 07:45> Lab Data Lab Results 02/11/19 02/11/19 02/11/19 Range/Units 13:58 14:15 15:59 WBC 7.8 (4.5-11.0) X10^3/uL RBC 4.44 L (4.5-5.9) X10^6/uL Hgb 14.0 (13.5-17.5) g/dL Hct 41.5 (41-53) % MCV 93.4 (80-100) fL MCH 31.5 (26-34) PG MCHC 33.8 (30-36) % RDW 15.2 H (11.6-14.8) % Plt Count 189 (150-400) X10^3/uL Neut % (Auto) 57.1 (50-75) % Lymph % (Auto) 32.4 (25-40) % [place] % (Auto) 8.0 (3-14) % Eos % (Auto) 2.2 (2-4) % Baso % (Auto) 0.3 (0-2) % Neut # (Auto) 4500 (5517-3272) /uL Lymph # (Auto) 2500 (5033-6497) /uL [place] # (Auto) 600 (0-900) /uL Eos # (Auto) 200 (0-450) /uL Baso # (Auto) 0 (0-100) /uL Urine Color Yellow Urine Appearance Sl cloudy Urine pH 5.5 (4.5-8.0) Ur Specific [place] 1.025 (1.000-1.035) Urine Protein 1+ H (Negative) Urine Glucose (UA) Negative (Negative) g/dL Urine Ketones Trace H (NEGATIVE) Urine Occult Blood 3+ H (Negative) Urine Nitrate Negative (Negative) Urine Bilirubin Negative (NEGATIVE) Urine Urobilinogen 0.2 (0.2) E.U./dL Ur Leukocyte Esterase Negative (NEGATIVE) Urine RBC 30-100/hpf H (0-5/HPF) Urine WBC 0-1/hpf (0-5/HPF) Ur Squamous Epith Cells 0-1 /hpf (0-5/HPF) Urine Bacteria None seen (None) Urine Mucus 1+ H (Negative) Ur Culture Indicated? Cult not indicated Ur Chlamydia DNA (PCR) Not detected N gonorrhoeae DNA (PCR) Not detected Discharge Plan Departure Patient Disposition: Home Clinical Impression: Inflammatory testicular mass UTI (urinary tract infection) Qualifiers: Urinary tract infection type: site unspecified Hematuria presence: with hematuria Qualified Code(s): N39.0 - Urinary tract infection, site not specified Discharge Date/Time: 02/11/19 16:47 Interventions: ED Discharge Assessment Last Done: 02/11/19 16:47 Instructions: DI for Urinary Tract Infection (UTI), DI for Testicular Pain Activity Restrictions/Additional Instructions: You have been diagnosed with [ UTI and testicular pain and possible mass, abscess, inflammation/infection, neoplasm ]. Your blood test for CBC looked good. Your urine is being cultured but it appears to be you are having an infection. US test finding indicate that you need to follow with urologist for additional evaluation for findings as above. What to do: *Take your medications as directed. Your Rx has been faxed to [facility] and please complete until it is gone. *Follow up with your primary care provider in 2-3 days and please call [facility] at [phone] on Tuesday and call for an appointment. Let them know you were seen in the ED and that we asked you to be seen in follow up. *Return to ED if you have any new, worsening, or concerning symptoms, such as [increasing pain/swelling/redness, fever, unable to tolerate fluids, chest pain, breathing difficulty, dizziness or any acute concerns]. Prescriptions: New levofloxacin [Levaquin] 500 mg tablet 500 mg PO DAILY 10 Days Qty: 10 RF: 0 No Action triamcinolone acetonide 0.5 % ointment 1 ea Topical PRN PRN (Reason: Skin Irritation) RF: 0 tamsulosin 0.4 mg capsule,extended release 24hr 0.8 mg PO QAM RF: 0 mirtazapine 30 mg tablet 30 mg PO QPM RF: 0 sertraline 25 mg tablet 25 mg PO QAM RF: 0 risperidone 1 mg tablet 1 mg PO QPM RF: 0 vyfraaun-vporqpjpkmil-mqhurml 600-50-300 mg tablet 1 tab PO QAM RF: 0 losartan 100 mg tablet 100 mg PO DAILY RF: 0 Xarelto 20 mg tablet 20 mg PO DAILY Qty: 30 RF: 3 atorvastatin 40 mg Tablet 40 mg PO QPM RF: 0 bupropion HCl 150 mg Tablet Sustained-Release 12 Hr 150 mg PO BID RF: 0 ibuprofen 400 mg Tablet 400 mg PO Q6H PRN (Reason: Pain, Moderate) RF: 0 omeprazole 20 mg Capsule,Delayed Release(Dr/Ec) 20 mg PO DAILY RF: 0 fluticasone propionate 50 mcg/actuation [place],Suspension 2 spray INTRANASAL DAILY RF: 0 Referrals: [facility] [Outside] ( ) Beth Connor ARNP [Primary Care Provider] -
== END 2019-02-11 16:47 | disposition home or self-care (01) ==
PROVIDERS: Emergency Provider Nurse Practitioner Family; PCP Nurse Practitioner Family
DX: N45.2 Orchitis (principal); N39.0 Urinary tract infection, site not specified; Z86.711 Personal history of pulmonary embolism; B20 Human immunodeficiency virus [HIV] disease
CPT/HCPCS: 36415; 76870; 81001; 85025; 87491; 87591; 96372; 99282; 99284; J0696

== ENCOUNTER → 2019-07-04 10:34 | Outpatient (CLI) | payer OTHER, MEDICAID, SELFPAY ==
[2017-12-18 08:30] VITALS: BMI 23.0
--- NOTE | 2019-07-04 | DI.CT.S_ITS ---
PROCEDURE: CT CHEST WO CON INDICATIONS: Solitary pulmonary nodule TECHNIQUE: Noncontrast 2.0-2.5 mm thick sections acquired from the pulmonary apices to the posterior costophrenic angles. 7 mm thick axial MIP and 5 mm coronal and sagittal reformats were then acquired. A low radiation dose technique was utilized. COMPARISON: [facility], CT, CT CHEST WO CON, 03/15/2018, 9:01. FINDINGS: Image quality: Diagnostic, given the low radiation dose technique. Lungs and pleura: Unchanged appearance of 4 mm subpleural left upper lobe pulmonary nodule, image 104/3. No acute consolidation. No pleural effusion or pneumothorax. Severe upper lobe centrilobular emphysema. Few scattered pleural blebs are noted. No new pulmonary nodule identified. Mild residual right basilar pleural thickening, and adjacent scarring/atelectasis. Mediastinum: Heart size is normal. No pericardial effusion. No mediastinal adenopathy by size criteria. Thoracic aorta and central pulmonary arteries are normal in size. Esophagus is normal in caliber. No hiatal hernia. Bones and chest wall: No suspicious bony lesions. No vertebral body compression fractures. No axillary or supraclavicular adenopathy by size criteria. Thyroid gland negative. Abdomen: Visualized upper abdomen solid organs and bowel loops appear normal in the absence of contrast. IMPRESSION: Unchanged size and appearance a 4 mm subpleural left upper lobe pulmonary nodule since 03/15/18. No further followup necessary for this lesion however continued annual lung screening CT could be performed if criteria meets consensus guidelines. Severe upper lobe emphysema Fleischner Society criteria for SOLID lung nodule followup. Nodule size (mm)Low-risk patientHigh-risk patient<6 (single or multiple)No routine followup.Optional CT at 12 months. 6-8 (single or multiple)CT at 6-12 months, then optional CT at 18-24 mo.CT at 6-12 months, then CT at 18-24 months. >8 (single)CT at 3 months, PET-CT, or biopsy. Same as for low-risk pts. >8 (multiple)CT at 3-6 months, then optional CT at 18-24 mo.CT at 3-6 months, then CT at 18-24 months. Fleischner Society criteria for SUB-SOLID lung nodule followup. Solitary pure ground-glass nodules<6 mm (ground glass or part solid)No followup needed. 6 mm or larger (ground glass)CT at 6-12 months to confirm persistence, then CT every 2 years until 5 years.6 mm or larger (part solid)CT at 3-6 months to confirm persistence, then annual CT until 5 years if unchanged and solid component remains <6 mm. Multiple sub-solid nodules<6 mmCT at 3-6 months, then CT consider at 2 & 4 years for high risk patients. [address] at 3-6 months. Subsequent management based on most suspicious lesions. Recommendations do not apply to lung cancer screening, patients with immunosuppression, or patients with known primary cancer. Dictated by: Jacob Becerril M.D. on 07/04/2019 at 11:03 Approved by: Jacob Becerril M.D. on 07/04/2019 at 11:10
== END ==
PROVIDERS: PCP Nurse Practitioner Family; Visit Provider Internal Medicine
DX: R91.1 Solitary pulmonary nodule (principal); J43.2 Centrilobular emphysema
CPT/HCPCS: 71250

== ENCOUNTER 2019-09-25 10:56 | Emergency (ER) | payer OTHER, MEDICAID, SELFPAY ==
[2017-12-18 08:30] VITALS: BMI 23.0
[2019-09-25 11:20] VITALS: BP 149/90; PULSE 90; RESP 13; TEMP 35.5; O2SAT 97
--- NOTE | 2019-09-25 12:22 | DI.RAD.S_ITS ---
PROCEDURE: XR LUMBAR SPINE 2-3V INDICATIONS: non-traumatic LLB pain and midspine/flank tenderness TECHNIQUE: 3 views of the lumbar spine were acquired. COMPARISON: None. FINDINGS: Bones: 5 jcw-lyc-rnnzphr vertebrae are present. There is normal bony alignment. No vertebral body compression fractures. No suspicious bony lesions. Mild L1-L2, L2-L3 at L3-L4 degenerative changes. Soft tissues: Overlying bowel gas pattern is normal. No suspicious soft tissue calcifications. IMPRESSION: No acute osseous lesion. If symptoms and/or clinical suspicion for pathology persists, evaluation with MRI may be helpful for further assessment. Dictated by: Beckie Hsu MD, PhD on 09/25/2019 at 12:03 Approved by: Beckie Hsu MD, PhD on 09/25/2019 at 12:04
--- NOTE | 2019-09-25 12:28 | ED.BACK ---
HPI - Back Pain/Injury <LETICIA Guerin - Last Filed: 09/25/19 13:56> General Chief Complaint: Back Pain/Injury Stated Complaint: Pain on left backside Time Seen by Provider: 09/25/19 11:53 Source: patient Mode of arrival: Ambulatory Limitations: no limitations History of Present Illness HPI Narrative: This is a 59-year-old male, smoker, who presents to ED with non-traumatic left lower back pain for about a week which became worse this morning. Patient reports pain worse with movement and forward flexion, rotation. Patient denies urinary symptoms such as urgency, frequency, dysuria, hematuria. Patient has a history of BPH and is currently taking Tamsulosin seeing urologist. Patient denies urinary retention after the medication for BPH. Patient denies fever, chills, nausea or vomiting. Patient is unable to recall straining his back recently. Patient has history of HIV, hypertension, pulmonary embolism and COPD. Related Data Home Medications Medication Instructions Recorded Confirmed mirtazapine 30 mg PO QPM 12/18/17 09/25/19 risperidone 1 mg PO QPM 12/18/17 09/25/19 sertraline 25 mg PO QAM 12/18/17 09/25/19 tamsulosin 0.8 mg PO QAM 12/18/17 09/25/19 triamcinolone acetonide 1 ea TOPICAL PRN PRN 12/18/17 09/25/19 losartan 100 mg PO DAILY 12/19/17 09/25/19 bupropion HCl 150 mg PO BID 02/11/19 09/25/19 fluticasone propionate 2 spray INTRANASAL DAILY 02/11/19 09/25/19 ibuprofen 400 mg PO Q6H PRN 02/11/19 09/25/19 omeprazole 20 mg PO DAILY 02/11/19 09/25/19 [id number] 1 tab PO DAILY 09/25/19 09/25/19 [Triumeq] budesonide-formoterol [Symbicort] 1 inh INHALATION DIRECTED 09/25/19 09/25/19 diltiazem HCl [DILT-XR] 180 mg PO DAILY 09/25/19 09/25/19 nicotine 14 mg TOPICAL DAILY 09/25/19 09/25/19 rosuvastatin 20 mg PO DAILY 09/25/19 09/25/19 Previous Rx's Medication Instructions Recorded rivaroxaban [Xarelto] 20 mg PO DAILY #30 tab 12/23/17 cyclobenzaprine 10 mg PO BID PRN #10 tab 09/25/19 lidocaine 1 patch TOP Q24H #30 each 09/25/19 Allergies Allergy/AdvReac Type Severity Reaction Status Date / Time No Known Drug Allergies Allergy Verified 12/17/17 22:46 Review of Systems <LETICIA Guerin - Last Filed: 09/25/19 13:56> Review of Systems Narrative: General: Denies fever, chills, fatigue, malaise, sweats. HEENT: Denies sinus pain, ear pain, sore throat, difficulty swallowing, dizziness. Respiratory: Denies dyspnea, cough, wheezing, hemoptysis, sputum. Cardiovascular: Denies chest pain, palpitations, orthopnea, edema. Gastrointestinal: Denies nausea, vomiting, abdominal pain, diarrhea, constipation, melena. : Denies dysuria, frequency, incontinence, hematuria, urinary retention. Musculoskeletal: See HPI Skin: Denies rash, skin lesions, or other. Neurologic: Denies weakness, headache, numbness, change in speech, confusion, seizures, incoordination. Psychiatric: No concerning psychosocial issues. 12-point review of systems is negative except for those stated above. Patient History <LETICIA Guerin - Last Filed: 09/25/19 13:56> Medical History COPD (chronic obstructive pulmonary disease) (Acute) Depression (Acute) HIV disease (Chronic) Hypertension (Chronic) Pulmonary embolism (Acute) Surgical History History of excision of testis (Chronic) Family History Other Family history non-contributory Social History household members: none Smoking Status: Current every day smoker alcohol intake: former Smoking Status: Current every day smoker alcohol intake frequency: 3 or more drinks per day Substance Use Type: does not use Exam <LETICIA Guerin - Last Filed: 09/25/19 13:56> Narrative Exam Narrative: General appearance: well developed, well nourished, in moderate distress from pain with movement. Head: normocephalic, atraumatic, no scalp lesions, non-tender. ENT: Hearing grossly intact. Nose without bleeding, purulent discharge. Mucous membrane moist, no mucosal lesion. Throat without erythema, tonsillar hypertrophy or exudate. Uvula in midline, airway patent. Neck/Thyroid: neck supple, full range of motion, no visible masses or meningeal signs. No JVD, non-tender without lymphadenopathy. Skin: no suspicious rashes, lesions over visible areas. Warm and dry and appropriate color for ethnicity. Heart: no clubbing, no cyanosis, no edema. S1 and S2 normal. RRR w/o murmurs, clicks, or bruits. Lungs: Breathing even and unlabored. No stridor. No accessory muscles used. Able to speak in full sentences. Chest: normal shape and expansion. Abdomen: non-obese, non-distended. Neurologic: alert and oriented. Cognitive exam, CONSTRUCTION [employer] and PNS grossly intact on informal exam. Psych: good eye contact, normal affect. Initial Vital Signs Initial Vital Signs: Vital Signs Temperature 96 F L 09/25/19 11:20 Pulse Rate 90 09/25/19 11:20 Respiratory Rate 13 09/25/19 11:20 Blood Pressure 149/90 H 09/25/19 11:20 Pulse Oximetry 97 09/25/19 11:20 Back/Spine/Pelvis Back: normal to inspection, No ecchymosis, No erythema and No warmth Thoracic/Lumbar Spine: thoracic and lumbar spine normal to inspection, straight leg raise negative bilaterally, bend over test abnormal, No mass, pain with thoraco-lumbar ROM (forward flexion, rotation), paraspinal tenderness (left lumbar), thoraco-lumbar ROM limited, lumbar spinal tenderness and tilt present <Kayleigh Weathers MD - Last Filed: 09/25/19 14:33> Initial Vital Signs Initial Vital Signs: Vital Signs Temperature 96 F L 09/25/19 11:20 Pulse Rate 90 09/25/19 11:20 Respiratory Rate 13 09/25/19 11:20 Blood Pressure 149/90 H 09/25/19 11:20 Pulse Oximetry 97 09/25/19 11:20 Scores <Duncan AdeROYAP - Last Filed: 09/25/19 13:56> GCS Rogelio coma scale eye opening: Spontaneous [place] coma scale verbal response: Orientated [place] coma scale motor response: Obey commands Rogelio coma scale total score: 15 Course <[facility] AdeLETICIA - Last Filed: 09/25/19 13:56> Orders Ordered: ED Orders 09/25/19 12:22 XR lumbar spine 2-3V Stat 09/25/19 13:00 Ictotest Urine Stat Urine Microscopic Stat Discontinued Medications Cyclobenzaprine HCl (Flexeril) 10 mg PO NOW ONE Stop: 09/25/19 13:12 Last Admin: 09/25/19 13:31 Dose: 10 mg Documented by: LUIS MANUEL Ketorolac Tromethamine (Toradol) 30 mg IM NOW ONE Stop: 09/25/19 12:23 Last Admin: 09/25/19 12:57 Dose: 30 mg Documented by: IDANIA Lidocaine (Lidoderm) 1 each TOP NOW ONE Stop: 09/25/19 13:12 Last Admin: 09/25/19 13:32 Dose: 1 each Documented by: LUIS MANUEL Vital Signs Vital signs: Vital Signs - 8 hr 09/25/19 11:20 09/25/19 14:08 Temperature 96 F L Pulse Rate 90 71 Respiratory Rate 13 18 Blood Pressure 149/90 H 170/82 H Pulse Oximetry 97 100 <Kayleigh Weathers MD - Last Filed: 09/25/19 14:33> Orders Ordered: ED Orders 09/25/19 12:22 XR lumbar spine 2-3V Stat 09/25/19 13:00 Ictotest Urine Stat Urine Microscopic Stat Discontinued Medications Cyclobenzaprine HCl (Flexeril) 10 mg PO NOW ONE Stop: 09/25/19 13:12 Last Admin: 09/25/19 13:31 Dose: 10 mg Documented by: LUIS MANUEL Ketorolac Tromethamine (Toradol) 30 mg IM NOW ONE Stop: 09/25/19 12:23 Last Admin: 09/25/19 12:57 Dose: 30 mg Documented by: IDANIA Lidocaine (Lidoderm) 1 each TOP NOW ONE Stop: 09/25/19 13:12 Last Admin: 09/25/19 13:32 Dose: 1 each Documented by: LUIS MANUEL Vital Signs Vital signs: Vital Signs - 8 hr 09/25/19 11:20 09/25/19 14:08 Temperature 96 F L Pulse Rate 90 71 Respiratory Rate 13 18 Blood Pressure 149/90 H 170/82 H Pulse Oximetry 97 100 MDM - Back Pain/Injury <LETICIA Guerin - Last Filed: 09/25/19 13:56> Differential Diagnosis Differential diagnosis: Likely strain of lumbar region, pyelonephritis and other (lumbar fracture) Medical Records Attestation: I reviewed the patient's medical records. Lab Data Labs: Lab Results 09/25/19 Range/Units 13:00 Ur Bilirubin Confirm Negative (Negative) Urine RBC 5-10/hpf H (0-5/HPF) Urine WBC 0-1/hpf (0-5/HPF) Ur Squamous Epith Cells 0-1 /hpf (0-5/HPF) Urine Bacteria Occasional (0-1) (None) Urine Mucus 1+ H (Negative) Ur Culture Indicated? Cult not indicated Urine Dip Bedside Urine Glucose Negative Bedside Urine Bilirubin + 1 Bedside Urine Ketone +/- 5 Urine Specific Cowen 1.025 Bedside Urine Occult Blood ++ Bedside Urine pH 6.0 Bedside Urine Protein + 30 Bedside Urine Urobilinogen - Negative Bedside Urine Nitrite - Negative Bedside Urine Leukocytes - Negative Esterase Imaging Data XF-Lumbar : Radiologist's Impression: [address] [address] XRay Report Signed Patient: Olu WeinsteinMR#: [id number] : [id number]:[id number] Age/Sex: 59 / MDate of Service: 09/25/19 Loc: ED Accession Number: [id number] Procedure: XR lumbar spine 2-3V Ordering Provider: Duncan Booker [facility] PROCEDURE: XR LUMBAR SPINE 2-3V INDICATIONS: non-traumatic LLB pain and midspine/flank tenderness TECHNIQUE: 3 views of the lumbar spine were acquired. COMPARISON: None. FINDINGS: Bones: 5 [id number] vertebrae are present. There is normal bony alignment. No vertebral body compression fractures. No suspicious bony lesions. Mild L1-L2, L2-L3 at L3-L4 degenerative changes. Soft tissues: Overlying bowel gas pattern is normal. No suspicious soft tissue calcifications. IMPRESSION: No acute osseous lesion. If symptoms and/or clinical suspicion for pathology persists, evaluation with MRI may be helpful for further assessment. Dictated by: Beckie Hsu MD, PhD on 09/25/2019 at 12:03 Approved by: Beckie Hsu MD, PhD on 09/25/2019 at 12:04 [facility] Narrative Medical decision making narrative: This is 59-year-old gentleman presents to ED with left lower back pain for about a week which became worse since this morning. Patient reports pain worsens with movements without any urinary symptoms and reports improves with rest. POC urine test indicates ++ occult blood, +30 protein, and +1 bilirubin with negative urine nitrite and leukocytes esterase. Patient had tenderness to palpate in lumbar spine and paralumbar spine region on left back with tight back muscle to palpate. Lumbar spine x-ray test indicates mild L1 through L4 degenerative changes without fractures. No acute osseous lesions were appreciated. Patient is afebrile with stable vital signs. Patient is ambulatory using a cane for an assist. Patient's back pain is likely due to musculoskeletal strain per physical exam and urine test. Patient was medicated with Toradol IM injection, Lidocaine patch and Flexeril for muscle relaxant. Return precautions were discussed with the patient and patient verbalized understanding and in agreement with the treatment plan. <Kayleigh Weathers MD - Last Filed: 09/25/19 14:33> Lab Data Labs: Lab Results 09/25/19 Range/Units 13:00 Ur Bilirubin Confirm Negative (Negative) Urine RBC 5-10/hpf H (0-5/HPF) Urine WBC 0-1/hpf (0-5/HPF) Ur Squamous Epith Cells 0-1 /hpf (0-5/HPF) Urine Bacteria Occasional (0-1) (None) Urine Mucus 1+ H (Negative) Ur Culture Indicated? Cult not indicated Urine Dip Bedside Urine Glucose Negative Bedside Urine Bilirubin + 1 Bedside Urine Ketone +/- 5 Urine Specific Cowen 1.025 Bedside Urine Occult Blood ++ Bedside Urine pH 6.0 Bedside Urine Protein + 30 Bedside Urine Urobilinogen - Negative Bedside Urine Nitrite - Negative Bedside Urine Leukocytes - Negative Esterase Discharge Plan Departure Patient Disposition: Home Clinical Impression: Left low back pain Qualifiers: Chronicity: acute Sciatica presence: without sciatica Qualified Code(s): M54.5 - Low back pain Discharge Date/Time: 09/25/19 14:10 Instructions: DI for Low Back Pain Activity Restrictions/Additional Instructions: You have been diagnosed with [left-sided low back pain. Urine test does not indicate an infection at this time. Lumbar x-ray test shows mild degenerative changes in L1 through L4 (arthritic changes)]. What to do: *Take your medications as directed. You were given Flexeril, Lidocaine patch, and Toradol injection in ED with improvement in your back pain. Lidocaine patch and Flexeril have been transmitted to [facility]. You can take these medications in as-needed basis. Flexeril may cause drowsiness so please take precautions. Lidocaine patch stays on for 12 hours and off for 12 hours. Continue to take [id number] ibuprofen and Tylenol as needed for discomfort. Warm pack may help with discomfort and relaxing the muscle. As soon as acute pain improves, please start with gentle stretching on your back. *Follow up with your primary care provider in 2-3 days, call for an appointment. Let them know you were seen in the ED and that we asked you to be seen in follow up. If pain persists you may need a referral to physical therapist or repeat a imaging test. *Return to ED if you have any new, worsening, or concerning symptoms, such as [chest pain, breathing difficulty, unable to tolerate fluids, numbness to her groin, incontinence for stool and urine, weakness to her legs, or any acute concerns]. Prescriptions: New lidocaine 5 % adhesive patch,medicated 1 patch TOP Q24H Qty: 30 RF: 0 cyclobenzaprine 10 mg tablet 10 mg PO BID PRN (Reason: muscle spasm) Qty: 10 RF: 0 No Action triamcinolone acetonide 0.5 % ointment 1 ea Topical PRN PRN (Reason: Skin Irritation) RF: 0 tamsulosin 0.4 mg capsule,extended release 24hr 0.8 mg PO QAM RF: 0 mirtazapine 30 mg tablet 30 mg PO QPM RF: 0 sertraline 25 mg tablet 25 mg PO QAM RF: 0 risperidone 1 mg tablet 1 mg PO QPM RF: 0 losartan 100 mg tablet 100 mg PO DAILY RF: 0 Xarelto 20 mg tablet 20 mg PO DAILY Qty: 30 RF: 3 bupropion HCl 150 mg Tablet Sustained-Release 12 Hr 150 mg PO BID RF: 0 ibuprofen 400 mg Tablet 400 mg PO Q6H PRN (Reason: Pain, Moderate) RF: 0 omeprazole 20 mg Capsule,Delayed Release(Dr/Ec) 20 mg PO DAILY RF: 0 fluticasone propionate 50 mcg/actuation [place],Suspension 2 spray INTRANASAL DAILY RF: 0 nicotine 14 mg/24 hr patch 24 hour 14 mg topical DAILY RF: 0 diltiazem HCl [DILT-XR] 180 mg capsule,ext.rel 24h degradable 180 mg PO DAILY RF: 0 rosuvastatin 20 mg tablet 20 mg PO DAILY RF: 0 budesonide-formoterol [Symbicort] 160-4.5 mcg/actuation HFA aerosol inhaler 1 inh INHALATION DIRECTED RF: 0 Triumeq 600-50-300 mg tablet 1 tab PO DAILY RF: 0 Referrals: Beth Connor ARNP [Primary Care Provider] - <Kayleigh Weathers MD - Last Filed: 09/25/19 14:33> Sign Out Provider Sign Out Attestation: I was immediately available in the department for consultation throughout this patient's visit. I agree with documentation as above. Kayleigh Weathers MD
[2019-09-25] MEDS: KETOROLAC 60 MG/2 ML VIAL 30 MG IM (12:57)
[2019-09-25] MEDS: CYCLOBENZAPRINE 10 MG TABLET PO (13:31)
[2019-09-25] MEDS: LIDOCAINE PATCH 1 EACH ADH..PATCH TOP (13:32)
[2019-09-25 13:39] LABS: Ictotest Urine Negative (Negative)
[2019-09-25 13:40] LABS: Bacteria Urine Occasional (0-1); Culture Indicated Urine Cult Not Indicated; Mucus Urine 1+ (Negative); RBC Urine 5-10/HPF (0-5/HPF); Squamous Epithelial Cell Urine 0-1 /HPF (0-5/HPF); WBC Urine 0-1/HPF (0-5/HPF)
[2019-09-25 14:08] VITALS: BP 170/82; PULSE 71; RESP 18; O2SAT 100
== END 2019-09-25 14:10 | disposition home or self-care (01) ==
PROVIDERS: Emergency Provider Nurse Practitioner Family; PCP Nurse Practitioner Family
DX: M54.5 Low back pain (principal)
CPT/HCPCS: 72100; 81003; 81015; 96372; 99283; 99284; J1885

== ENCOUNTER → 2020-03-26 12:33 | Outpatient (CLI) | payer OTHER, MEDICAID, SELFPAY ==
[2017-12-18 08:30] VITALS: BMI 23.0
[2020-03-26 13:45] LABS: Add Manual Diff / Slide Review NO; Basophils Absolute Auto 0 /uL (0-100); Basophils Percent Auto 0.1 % (0-2); Eosinophils Absolute Auto 100 /uL (0-450); Eosinophils Percent Auto 1.2 % (2-4); Hematocrit 37.8 % (41-53); Hemoglobin 12.7 g/dL (13.5-17.5); Lymphocytes Absolute Auto 2600 /uL (1100-4500); Lymphocytes Percent Auto 30.9 % (25-40); Mean Corpuscular HGB Conc 33.7 % (30-36); Monocytes Absolute Auto 800 /uL (0-900); Monocytes Percent Auto 9.7 % (3-14); Neutrophils Absolute Auto 5000 /uL (1500-7000); Neutrophils Percent Auto 58.1 % (50-75); Platelet Count 253 X10^3/uL (150-400); Red Blood Cell Count 3.98 X10^6/uL (4.5-5.9); Red Cell Distribution Width 14.9 % (11.6-14.8); White Blood Cell Count 8.6 X10^3/uL (4.5-11.0)
[2020-03-26 13:49] LABS: Appearance Urine UA SL CLOUDY; Bilirubin Urine UA NEGATIVE (NEGATIVE); Color Urine UA YELLOW; Glucose Urine UA NEGATIVE (Negative); Ketones Urine UA TRACE (NEGATIVE); Leukocyte Esterase Urine UA NEGATIVE (NEGATIVE); Nitrite Urine UA NEGATIVE (Negative); Occult Blood Urine UA 3+ (Negative); Protein Urine UA TRACE (Negative); Urobilinogen Urine UA 0.2 E.U./dL (0.2); pH Urine UA 6.5 (4.5-8.0)
[2020-03-26 14:05] LABS: Alanine Aminotransferase 20 IU/L (<50); Albumin 4.7 g/dL (3.5-5.0); Albumin Globulin Ratio 1.5 (1.0-2.8); Alkaline Phosphatase 101 U/L (38-126); Aspartate Aminotransferase 26 IU/L (17-59); BUN Creatinine Ratio 10.4 (6-22); Bilirubin Total 0.3 mg/dL (0.2-1.3); Blood Urea Nitrogen 14 mg/dL (9-20); Calcium 9.7 mg/dL (8.4-10.2); Carbon Dioxide 26 mmol/L (22-32); Chloride 108 mmol/L (98-107); Cholesterol 127 mg/dL (140-199); Estimated Glomerular Filt Rate 54.8 mL/min (>60); Globulin 3.2 g/dL (1.7-4.1); Glucose 107 mg/dL (70-100); HDL Cholesterol 75 mg/dL (40-60); HEMOLYSIS < 15 (0-50); LDL Cholesterol Calculated 42 mg/dL (<100); Potassium 4.1 mmol/L (3.4-5.1); Sodium 140 mmol/L (137-145); Total Protein 7.9 g/dL (6.3-8.2); Triglycerides 48 mg/dL (35-150); VLDL Cholesterol Calculated 10 mg/dL (2-30)
[2020-03-26 14:12] LABS: Bacteria Urine Moderate (10-30); Culture Indicated Urine Cult Not Indicated; RBC Urine >100/HPF (0-5/HPF); WBC Urine 0-1/HPF (0-5/HPF)
[2020-03-26 14:31] LABS: Prostate Specific Antigen Scrn 1.35 ng/mL (0.1-4.0)
[2020-04-15 14:36] LABS: HIV-1 RNA by PCR <20
== END ==
PROVIDERS: PCP Nurse Practitioner Family; Referring Provider Nurse Practitioner Family; Visit Provider Nurse Practitioner Family
DX: B20 Human immunodeficiency virus [HIV] disease (principal); R73.9 Hyperglycemia, unspecified; N40.1 Benign prostatic hyperplasia with lower urinary tract symptoms
CPT/HCPCS: 36415; 80053; 80061; 81001; 83036; 85025; 86360; 87536; G0103

== ENCOUNTER → 2020-04-16 14:41 | Outpatient (CLI) | payer OTHER, MEDICAID, SELFPAY ==
[2017-12-18 08:30] VITALS: BMI 23.0
--- NOTE | 2020-04-16 | DI.CT.S_ITS ---
PROCEDURE: CT CHEST WO CON INDICATIONS: Follow up lung nodule TECHNIQUE: Noncontrast 2.0-2.5 mm thick sections acquired from the pulmonary apices to the posterior costophrenic angles. 7 mm thick axial MIP and 5 mm coronal and sagittal reformats were then acquired. A low radiation dose technique was utilized. COMPARISON: [facility], CT, CT CHEST WO CON, 03/15/2018, 9:01. [facility], CT, CT CHEST WO CON, 07/04/2019, 10:34. FINDINGS: Image quality: Diagnostic, given the low radiation dose technique. Lungs and pleura: Upper lobe predominant centrilobular emphysema. 4 mm nodule seen in the left upper lobe image 114/3 is grossly unchanged, dating back to 03/15/18. Scattered subsegmental atelectasis and/or scarring. No focal consolidation. Mediastinum: Heart size is normal. No pericardial effusion. No mediastinal adenopathy by size criteria. Thoracic aorta and central pulmonary arteries are normal in size. Esophagus is normal in caliber. No hiatal hernia. Bones and chest wall: No suspicious bony lesions. No vertebral body compression fractures. No axillary or supraclavicular adenopathy by size criteria. Thyroid gland negative . Nonobstructive sub 5 mm left nephrolithiasis incidentally noted. IMPRESSION: Unchanged appearance of 4 mm left upper lobe pulmonary nodule. No further follow-up necessary for this finding. Upper lobe predominant centrilobular emphysema. If screening criteria met, annual CT lung surveillance could be performed. Fleischner Society criteria for SOLID lung nodule followup. Nodule size (mm)Low-risk patientHigh-risk patient<6 (single or multiple)No routine followup.Optional CT at 12 months. 6-8 (single or multiple)CT at 6-12 months, then optional CT at 18-24 mo.CT at 6-12 months, then CT at 18-24 months. >8 (single)CT at 3 months, PET-CT, or biopsy. Same as for low-risk pts. >8 (multiple)CT at 3-6 months, then optional CT at 18-24 mo.CT at 3-6 months, then CT at 18-24 months. Fleischner Society criteria for SUB-SOLID lung nodule followup. Solitary pure ground-glass nodules<6 mm (ground glass or part solid)No followup needed. 6 mm or larger (ground glass)CT at 6-12 months to confirm persistence, then CT every 2 years until 5 years.6 mm or larger (part solid)CT at 3-6 months to confirm persistence, then annual CT until 5 years if unchanged and solid component remains <6 mm. Multiple sub-solid nodules<6 mmCT at 3-6 months, then CT consider at 2 & 4 years for high risk patients. [address] at 3-6 months. Subsequent management based on most suspicious lesions. Recommendations do not apply to lung cancer screening, patients with immunosuppression, or patients with known primary cancer. Dictated by: Jacob Becerril M.D. on 04/16/2020 at 15:30 Approved by: Jacob Becerril M.D. on 04/16/2020 at 15:36
== END ==
PROVIDERS: PCP Nurse Practitioner Family; Referring Provider Nurse Practitioner Family; Visit Provider Internal Medicine
DX: R91.1 Solitary pulmonary nodule (principal); J43.2 Centrilobular emphysema
CPT/HCPCS: 71250

== ENCOUNTER 2020-04-25 18:25 | Emergency (ER) | payer OTHER, MEDICAID, SELFPAY ==
[2017-12-18 08:30] VITALS: BMI 23.0
[2020-04-25 18:36] VITALS: BP 154/82; PULSE 62; RESP 18; TEMP 36.6; O2SAT 99; BMI 24.5
[2020-04-25 20:45] VITALS: O2SAT 100
[2020-04-25 20:46] VITALS: BP 164/78; PULSE 65; O2SAT 99
[2020-04-25 21:00] VITALS: PULSE 57; O2SAT 100
[2020-04-25] MEDS: LIDOCAINE 1% (PF) 2 ML INJ (21:20)
--- NOTE | 2020-04-25 22:08 | ED.WOUNDLAC ---
HPI - Wound/Laceration General Chief Complaint: Wound/Laceration Stated Complaint: SPITTING UP BLOOD Time Seen by Provider: 04/25/20 20:46 Source: patient Mode of arrival: Ambulatory Limitations: no limitations History of Present Illness HPI narrative: 59-year-old gentleman with a history of HIV with undetectable viral load, hypertension and prior pulmonary embolism currently on Xarelto presents with persistent bleeding from his upper lip. Does not describe any trauma to the upper lip does note that he wears dentures. Approximately 3 hours prior to arrival in the emergency department he noted bleeding from the upper lip that despite continued pressure continues to bleed. He has no bleeding anywhere else and no other concerns. Related Data Home Medications Medication Instructions Recorded Confirmed mirtazapine 30 mg PO QPM 12/18/17 09/25/19 risperidone 1 mg PO QPM 12/18/17 09/25/19 sertraline 25 mg PO QAM 12/18/17 09/25/19 tamsulosin 0.8 mg PO QAM 12/18/17 09/25/19 triamcinolone acetonide 1 ea TOPICAL PRN PRN 12/18/17 09/25/19 losartan 100 mg PO DAILY 12/19/17 09/25/19 bupropion HCl 150 mg PO BID 02/11/19 09/25/19 fluticasone propionate 2 spray INTRANASAL DAILY 02/11/19 09/25/19 ibuprofen 400 mg PO Q6H PRN 02/11/19 09/25/19 omeprazole 20 mg PO DAILY 02/11/19 09/25/19 [id number] 1 tab PO DAILY 09/25/19 09/25/19 [Triumeq] budesonide-formoterol [Symbicort] 1 inh INHALATION DIRECTED 09/25/19 09/25/19 diltiazem HCl [DILT-XR] 180 mg PO DAILY 09/25/19 09/25/19 nicotine 14 mg TOPICAL DAILY 09/25/19 09/25/19 rosuvastatin 20 mg PO DAILY 09/25/19 09/25/19 Previous Rx's Medication Instructions Recorded rivaroxaban [Xarelto] 20 mg PO DAILY #30 tab 12/23/17 cyclobenzaprine 10 mg PO BID PRN #10 tab 09/25/19 lidocaine 1 patch TOP Q24H #30 each 09/25/19 Allergies Allergy/AdvReac Type Severity Reaction Status Date / Time No Known Drug Allergies Allergy Verified 04/25/20 18:36 Review of Systems Review of Systems Narrative: Pertinent positive and negative findings as per HPI Remainder of review of systems is otherwise unremarkable for Constitutional: Fevers, chills, weakness ENT: No sore throat, neck pain, ear pain CV: Chest pain, palpitations, dyspnea on exertion Respiratory: Cough, wheeze, dyspnea GI: Nausea, vomiting, diarrhea, Patient History Medical History COPD (chronic obstructive pulmonary disease) (Acute) Depression (Acute) HIV disease (Chronic) Hypertension (Chronic) Pulmonary embolism (Acute) Surgical History History of excision of testis (Chronic) Family History Other Family history non-contributory Social History household members: none Smoking Status: Current every day smoker alcohol intake: former Smoking Status: Current every day smoker alcohol intake frequency: 3 or more drinks per day Substance Use Type: does not use Exam Narrative Exam Narrative: General: Alert appropriate in no acute distress HEENT: There is a small submucosal laceration just past the vermilion border on the buccal side of the upper lip. This is the source of bleeding and with continuous pressure the bleeding is not subsiding. Respiratory: Able to speak in full sentences, no obvious respiratory distress Skin: No obvious rashes, warm and dry Neurologic: Grossly intact no obvious asymmetries or abnormalities Psych, appropriate insight and affect, cooperative Initial Vital Signs Initial Vital Signs: Vital Signs Temperature 97.8 F 04/25/20 18:36 Pulse Rate 62 04/25/20 18:36 Respiratory Rate 18 04/25/20 18:36 Blood Pressure 154/82 H 04/25/20 18:36 Pulse Oximetry 99 04/25/20 18:36 Procedures Laceration Repair Upper lip: Site: lip Size (cm): 0.3 Description: linear Depth: simple, single layer (Over-sewing minor mucosal laceration with continued bleeding) Local Anesthetic: lidocaine 1% Amount of anesthesia used (mL): 2 Skin layer closed with: other (Absorbable chromic) Size (cm): 5-0 Number of sutures: 3 Technique: simple, interrupted Course Orders Ordered: Discontinued Medications Lidocaine HCl (Xylocaine 1% (Pf)) 2 ml INJ NOW ONE Stop: 04/25/20 20:56 Last Admin: 04/25/20 21:20 Dose: 2 ml Documented by: RADHAMES Vital Signs Vital signs: Vital Signs - 8 hr 04/25/20 18:36 04/25/20 20:45 04/25/20 20:46 Temperature 97.8 F Pulse Rate 62 65 Respiratory Rate 18 Blood Pressure 154/82 H 164/78 H Pulse Oximetry 99 100 99 04/25/20 21:00 04/25/20 22:22 Temperature Pulse Rate 57 L 78 Respiratory Rate 15 Blood Pressure 169/84 H Pulse Oximetry 100 99 MDM - Wound/Laceration MDM Narrative Medical decision making narrative: 59-year-old gentleman with minor buccal laceration on the upper lip that continues to bleed presumably secondary to his Xarelto. Does not describe any significant trauma. Three to sutures are needed to over sew the area to control the bleeding. Absorbable chromic was used. Patient tolerated the procedure well. He is safe for home discharge Discharge Plan Departure Patient Disposition: Home Clinical Impression: Laceration Discharge Date/Time: 04/25/20 22:24 Instructions: DI for Minor Laceration Activity Restrictions/Additional Instructions: Thank you for coming in today You have a tiny little cut on the inside of your upper lid simply would not stop bleeding. I used a small amount of numbing medicine and placed 3 small stitches to get the bleeding to stop. I used absorbable suture so in a couple of days the knots will likely just fall off. I would recommend not eating ?crumbly? foods for the next 24 hours. Please continue all of your usual medications. It would be very unusual for lip to become infected but if you notice there is more swelling, bleeding pain or new findings it would be appropriate to return to the emergency department I wish you well Prescriptions: No Action triamcinolone acetonide 0.5 % ointment 1 ea Topical PRN PRN (Reason: Skin Irritation) RF: 0 tamsulosin 0.4 mg capsule,extended release 24hr 0.8 mg PO QAM RF: 0 mirtazapine 30 mg tablet 30 mg PO QPM RF: 0 sertraline 25 mg tablet 25 mg PO QAM RF: 0 risperidone 1 mg tablet 1 mg PO QPM RF: 0 losartan 100 mg tablet 100 mg PO DAILY RF: 0 Xarelto 20 mg tablet 20 mg PO DAILY Qty: 30 RF: 3 bupropion HCl 150 mg Tablet Sustained-Release 12 Hr 150 mg PO BID RF: 0 ibuprofen 400 mg Tablet 400 mg PO Q6H PRN (Reason: Pain, Moderate) RF: 0 omeprazole 20 mg Capsule,Delayed Release(Dr/Ec) 20 mg PO DAILY RF: 0 fluticasone propionate 50 mcg/actuation [place],Suspension 2 spray INTRANASAL DAILY RF: 0 nicotine 14 mg/24 hr patch 24 hour 14 mg topical DAILY RF: 0 diltiazem HCl [DILT-XR] 180 mg capsule,ext.rel 24h degradable 180 mg PO DAILY RF: 0 rosuvastatin 20 mg tablet 20 mg PO DAILY RF: 0 budesonide-formoterol [Symbicort] 160-4.5 mcg/actuation HFA aerosol inhaler 1 inh INHALATION DIRECTED RF: 0 Triumeq 600-50-300 mg tablet 1 tab PO DAILY RF: 0 lidocaine 5 % adhesive patch,medicated 1 patch TOP Q24H Qty: 30 RF: 0 cyclobenzaprine 10 mg tablet 10 mg PO BID PRN (Reason: muscle spasm) Qty: 10 RF: 0 Referrals: Beth Connor ARNP [Primary Care Provider] -
[2020-04-25 22:22] VITALS: BP 169/84; PULSE 78; RESP 15; O2SAT 99
== END 2020-04-25 22:24 | disposition home or self-care (01) ==
PROVIDERS: Emergency Provider Emergency Medicine; PCP Nurse Practitioner Family
DX: S01.511A Laceration without foreign body of lip, initial encounter (principal); Z79.01 Long term (current) use of anticoagulants; Z21 Asymptomatic human immunodeficiency virus [HIV] infection status
CPT/HCPCS: 12011; 99283

== ENCOUNTER → 2020-12-09 07:55 | Outpatient (CLI) | payer OTHER, MEDICAID, SELFPAY ==
[2017-12-18 08:30] VITALS: BMI 23.0
[2020-12-09 09:17] LABS: COVID19 -Nasal RAPID Negative (Negative)
== END ==
PROVIDERS: PCP Nurse Practitioner Family; Referring Provider Internal Medicine; Visit Provider Internal Medicine
DX: Z20.822 Contact with and (suspected) exposure to COVID-19 (principal)
CPT/HCPCS: 87635; C9803

== ENCOUNTER → 2020-12-10 14:56 | Outpatient (CLI) | payer OTHER, MEDICAID, SELFPAY ==
[2017-12-18 08:30] VITALS: BMI 23.0
--- NOTE | 2020-12-12 08:11 | PM.PFT.1 ---
Pulmonary Function Test Referral & Results Date Patient Seen: 12/10/20 Requesting provider: Evan Wallace Results: The spirometry demonstrates an FVC of 2.77 L which is 83% of predicted. The FEV1 was measured at 1.49 L which is 57% of predicted. The FEV1/FVC ratio was 54 which is 68% of predicted. Following the administration of bronchodilator there was a 20% improvement in FEF 25-75%. The diffusing capacity was measured at 11.0 which is 42% of predicted. No hemoglobin value was provided, so no correction for potential anemia could be made, if appropriate. Interpretation: This study demonstrates moderately severe obstructive lung disease based on reduction FEV1 and FEV1/FVC ratio with some limited evidence of benefit following bronchodilator particularly small airway flow based on improvement in FEF 25-75% as above There is also notable moderately severe reduction in diffusing capacity suggesting significant disease at the capillary alveolar level Clinical correlation suggested
== END ==
PROVIDERS: PCP Nurse Practitioner Family; Referring Provider Internal Medicine; Visit Provider Internal Medicine
DX: J43.2 Centrilobular emphysema (principal)
CPT/HCPCS: 94060; 94729

== ENCOUNTER 2022-01-06 17:22 | Emergency (ER) | payer OTHER, MEDICAID, SELFPAY ==
[2017-12-18 08:30] VITALS: BMI 23.0
[2022-01-06] VITALS (26 sets, daily range): BP systolic 165–217; BP diastolic 77–107; PULSE 62–93; RESP 16–26; TEMP 36.4–37.2; O2SAT 100
[2022-01-06 18:53] LABS: Basophils Absolute Auto 0 /uL (0-100); Eosinophils Absolute Auto 200 /uL (0-450); Eosinophils Percent Auto 2.4 % (2-4); Hematocrit 23.6 % (41-53); Monocytes Absolute Auto 500 /uL (0-900)
[2022-01-06 18:56] LABS: Basophils Percent Auto 0.7 % (0-2); Hemoglobin 7.8 g/dL (13.5-17.5); Lymphocytes Absolute Auto 2000 /uL (1100-4500); Mean Corpuscular HGB Conc 33.1 % (30-36); Mean Corpuscular Hemoglobin 25.3 PG (26-34); Mean Corpuscular Volume 76.6 fL (80-100); Monocytes Percent Auto 6.6 % (3-14); Neutrophils Absolute Auto 4600 /uL (1500-7000); Neutrophils Percent Auto 63.3 % (50-75); Platelet Count 309 X10^3/uL (150-400); Red Blood Cell Count 3.09 X10^6/uL (4.5-5.9); Red Cell Distribution Width 18.5 % (11.6-14.8); White Blood Cell Count 7.3 X10^3/uL (4.5-11.0)
[2022-01-06 19:01] LABS: Add Manual Diff / Slide Review SLIDE REVIEW
[2022-01-06 19:04] LABS: Alanine Aminotransferase 15 IU/L (<50); Albumin 4.6 g/dL (3.5-5.0); Albumin Globulin Ratio 1.6 (1.0-2.8); Alkaline Phosphatase 70 U/L (38-126); Aspartate Aminotransferase 27 IU/L (17-59); BUN Creatinine Ratio 11.3 (6-22); Bilirubin Total 0.3 mg/dL (0.2-1.3); Blood Urea Nitrogen 15 mg/dL (9-20); Calcium 8.9 mg/dL (8.4-10.2); Carbon Dioxide 25 mmol/L (22-32); Chloride 107 mmol/L (98-107); Estimated Glomerular Filt Rate > 60 mL/min (>60); Globulin 2.9 g/dL (1.7-4.1); Glucose 87 mg/dL (80-110); HEMOLYSIS < 15 (0-50); Potassium 3.9 mmol/L (3.4-5.1); Sodium 138 mmol/L (137-145); Total Protein 7.5 g/dL (6.3-8.2)
[2022-01-06 19:08] LABS: Microcytosis 1+
[2022-01-06 19:09] LABS: Ovalocytes 1+; Schistocytes 2+
--- NOTE | 2022-01-06 19:11 | ED.RECABL ---
HPI - Recheck/Abnormal Lab/Rx General Chief Complaint: Recheck/Abnormal Lab/Rx Stated Complaint: sent for labwork, workup Time Seen by Provider: 01/06/22 19:00 Source: patient Mode of arrival: Ambulatory History of Present Illness HPI narrative: Patient here for hemoglobin 7.8. Blood drawn by primary care yesterday. Patient gets blood work every 6 months. Has history of HIV. Also on Xarelto for blood clot 4 years ago. He is unsure where the blood clot was. Has felt very tired fatigued in the last 6 months. Short of breath and tired. Has had black stools off and on. No bright red blood per rectum. No dizziness or syncope Related Data Home Medications Medication Instructions Recorded Confirmed mirtazapine 30 mg tablet 30 mg PO QPM 12/18/17 09/25/19 risperidone 1 mg tablet 1 mg PO QPM 12/18/17 09/25/19 sertraline 25 mg tablet 25 mg PO QAM 12/18/17 09/25/19 tamsulosin 0.4 mg capsule 0.8 mg PO QAM 12/18/17 09/25/19 triamcinolone acetonide 0.5 % 1 ea topical PRN PRN Skin 12/18/17 09/25/19 topical ointment Irritation losartan 100 mg tablet 100 mg PO DAILY 12/19/17 09/25/19 bupropion HCl 150 mg tablet,12 hr 150 mg PO BID 02/11/19 09/25/19 sustained-release fluticasone propionate 50 2 spray intranasal DAILY 02/11/19 09/25/19 mcg/actuation nasal spray,suspension ibuprofen 400 mg tablet 400 mg PO Q6H PRN Pain, Moderate 02/11/19 09/25/19 omeprazole 20 mg capsule,delayed 20 mg PO DAILY 02/11/19 09/25/19 release abacavir 600 mg-dolutegravir 50 1 tab PO DAILY 09/25/19 09/25/19 mg-lamivudine 300 mg tablet (Triumeq) budesonide-formoterol HFA 160 1 inh inhalation DIRECTED 09/25/19 09/25/19 mcg-4.5 mcg/actuation aerosol inhaler (Symbicort) diltiazem HCl 180 mg 180 mg PO DAILY 09/25/19 09/25/19 capsule,extended release 24 hr, controlled (DILT-XR) nicotine 14 mg/24 hr daily 14 mg topical DAILY 09/25/19 09/25/19 transdermal patch rosuvastatin 20 mg tablet 20 mg PO DAILY 09/25/19 09/25/19 Previous Rx's Medication Instructions Recorded rivaroxaban 20 mg tablet (Xarelto) 20 mg PO DAILY #30 tabs 12/23/17 cyclobenzaprine 10 mg tablet 10 mg PO BID PRN muscle spasm #10 09/25/19 tabs lidocaine 5 % topical patch 1 patch topical Q24H #30 ea 09/25/19 pantoprazole 40 mg tablet,delayed 40 mg PO DAILY #30 tabs 01/07/22 release (Protonix) Allergies Allergy/AdvReac Type Severity Reaction Status Date / Time No Known Drug Allergies Allergy Verified 04/25/20 18:36 Review of Systems Review of Systems Narrative: GENERAL: Denies chills, positive for fatigue, malaise, negative for fever, sweats. HEENT: Denies sinus pain, ear pain, sore throat RESPIRATORY: Denies dyspnea, cough CARDIOVASCULAR: Denies chest pain, palpitations GASTROINTESTINAL: Denies nausea, vomiting, abdominal pain, positive for black stools/blood in stools. : Denies dysuria, frequency, hematuria MUSCULOSKELETAL: denies muscle or bony pain SKIN: Denies rash, skin lesions NEUROLOGIC: Denies weakness, numbness ROS Unobtainable: All systems reviewed & are unremarkable except as noted in HPI and below Patient History Medical History (Updated 01/07/22 @ 01:38 by Shun Bolanos MD) COPD (chronic obstructive pulmonary disease) Depression HIV disease Hypertension Pulmonary embolism Surgical History History of excision of testis Family History Other Family history non-contributory Social History household members: none Smoking Status: Current every day smoker alcohol intake: former Smoking Status: Current every day smoker alcohol intake frequency: holidays/special occasions only Substance Use Type: does not use Exam Narrative Exam Narrative: GENERAL: in no distress, not toxic not dyspneic HEAD: Normocephalic. EYES: Pupils equal round No scleral icterus., there is pale conjunctiva ENT: Mucous membranes moist. NECK: Trachea midline. CARDIOVASCULAR: Regular rate and rhythm without murmurs RESPIRATORY: Clear to auscultation. Breath sounds equal bilaterally. No wheezes, rales, or rhonchi. GASTROINTESTINAL: Abdomen soft, non-tender, bowel sounds present. No peritoneal signs EXTREMITIES: No gross deformities. BACK: No flank tenderness. NEURO: AOx4. SKIN: Warm and dry PSYCH: Not anxious, is cooperative Initial Vital Signs Initial Vital Signs: Vital Signs Temperature 98.9 F 01/06/22 17:40 Pulse Rate 83 01/06/22 17:40 Respiratory Rate 20 01/06/22 17:40 Pulse Oximetry 100 01/06/22 17:40 Oxygen Delivery Method 01/06/22 17:40 Course Course Course Narrative: No new issues during course of stay Orders Ordered: ED Orders 01/07/22 01:05 CBC Auto Diff [Complete Blood Count AUTO DIFF] Stat Reevaluation(s) Reevaluation #1: Reviewed results with patient. He feels much better after blood transfusion. Return precautions reviewed with him. Referral for general surgeon given to him. He desires discharge home. Time: 01:41 Consultations Consultation #1: Spoke with general surgery Dr. Farmer. Patient vital signs are stable. This is slow ongoing likely related to Xarelto but does not need to be admitted. No emergent/urgent colonoscopy today. Canal 2 units of red blood cells, placed on PPI. Will see patient in the office this week. Keep patient on Xarelto as patient is unsure definitive why he is on Xarelto for blood clots. No imaging indicated Time: 19:22 Vital Signs Vital signs: Vital Signs - 8 hr 01/06/22 21:50 01/06/22 22:05 01/06/22 22:15 Temperature 98.0 F 98 F 98 F Pulse Rate 93 H 79 72 Respiratory Rate 19 19 18 Blood Pressure 188/90 H 186/88 H 171/87 H Pulse Oximetry Oxygen Delivery Method 01/06/22 21:43 01/06/22 21:44 01/06/22 21:44 Temperature Pulse Rate 90 78 Respiratory Rate Blood Pressure 201/107 H Pulse Oximetry 100 100 Oxygen Delivery Method 01/06/22 21:45 01/06/22 21:45 01/06/22 22:00 Temperature Pulse Rate 70 Respiratory Rate 26 H Blood Pressure 188/90 H 177/79 H Pulse Oximetry 100 Oxygen Delivery Method 01/06/22 22:00 01/06/22 22:10 01/06/22 22:10 Temperature Pulse Rate 62 71 Respiratory Rate Blood Pressure 186/86 H Pulse Oximetry 100 100 Oxygen Delivery Method 01/06/22 22:15 01/06/22 22:15 01/06/22 22:30 Temperature Pulse Rate 66 Respiratory Rate Blood Pressure 171/87 H 171/82 H Pulse Oximetry 100 Oxygen Delivery Method 01/06/22 22:30 01/06/22 22:49 01/06/22 23:08 Temperature 97.7 F 97.6 F Pulse Rate 66 78 78 Respiratory Rate 18 18 Blood Pressure 213/101 H 172/92 H Pulse Oximetry 100 Oxygen Delivery Method 01/06/22 23:32 01/06/22 23:45 01/06/22 22:45 Temperature 97.9 F 98.1 F Pulse Rate 81 81 86 Respiratory Rate 18 18 Blood Pressure 216/102 H 210/101 H Pulse Oximetry 100 Oxygen Delivery Method 01/06/22 22:45 01/06/22 23:00 01/06/22 23:01 Temperature Pulse Rate 75 73 Respiratory Rate 17 Blood Pressure 213/101 H Pulse Oximetry 100 100 Oxygen Delivery Method 01/06/22 23:01 01/06/22 23:15 01/06/22 23:15 Temperature 97.7 F Pulse Rate 78 67 Respiratory Rate 16 Blood Pressure 172/91 H 165/88 H Pulse Oximetry 100 100 Oxygen Delivery Method 01/06/22 23:36 01/06/22 23:38 01/06/22 23:38 Temperature Pulse Rate 78 82 Respiratory Rate Blood Pressure 216/102 H Pulse Oximetry 100 100 Oxygen Delivery Method 01/06/22 23:45 01/06/22 23:45 01/07/22 00:00 Temperature Pulse Rate 86 66 Respiratory Rate Blood Pressure 211/101 H Pulse Oximetry 100 100 Oxygen Delivery Method 01/07/22 00:01 01/07/22 00:01 01/07/22 00:16 Temperature Pulse Rate 70 70 Respiratory Rate Blood Pressure 177/85 H Pulse Oximetry 100 100 Oxygen Delivery Method 01/07/22 00:16 01/07/22 00:30 01/07/22 00:30 Temperature Pulse Rate 65 Respiratory Rate Blood Pressure 181/89 H 172/86 H Pulse Oximetry 100 Oxygen Delivery Method 01/07/22 00:58 01/07/22 00:45 01/07/22 00:45 Temperature 98 F Pulse Rate 81 72 Respiratory Rate 18 Blood Pressure 177/89 H 169/78 H Pulse Oximetry 97 100 Oxygen Delivery Method Room Air 01/07/22 01:00 01/07/22 01:00 Temperature Pulse Rate 70 Respiratory Rate Blood Pressure 177/88 H Pulse Oximetry 100 Oxygen Delivery Method MDM - Recheck/Abnormal Lab/Rx Differential Diagnosis Differential diagnosis: Likely other (GI bleed/anemia) Lab Data Result diagrams: 01/07/22 01:05 01/06/22 18:38 Labs: Lab Results 01/06/22 01/06/22 01/06/22 Range/Units 18:38 18:38 19:40 WBC 7.3 (4.5-11.0) X10^3/uL RBC 3.09 L (4.5-5.9) X10^6/uL Hgb 7.8 L (13.5-17.5) g/dL Hct 23.6 L (41-53) % MCV 76.6 L (80-100) fL MCH 25.3 L (26-34) PG MCHC 33.1 (30-36) % RDW 18.5 H (11.6-14.8) % Plt Count 309 (150-400) X10^3/uL Neut % (Auto) 63.3 (50-75) % Lymph % (Auto) 27.0 (25-40) % [place] % (Auto) 6.6 (3-14) % Eos % (Auto) 2.4 (2-4) % Baso % (Auto) 0.7 (0-2) % Neut # (Auto) 4600 (7485-6770) /uL Lymph # (Auto) 2000 (5856-4104) /uL [place] # (Auto) 500 (0-900) /uL Eos # (Auto) 200 (0-450) /uL Baso # (Auto) 0 (0-100) /uL RBC Morphology See below Hypochromasia 2+ H Anisocytosis 3+ H Microcytosis 1+ H Target Cells 1+ H Ovalocytes 1+ H Schistocytes 2+ H PT 16.4 H (10.1-12.7) SECONDS INR 1.4 H (0.9-1.3) APTT 34 (26.4-36.2) SECONDS Sodium 138 (137-145) mmol/L Potassium 3.9 (3.4-5.1) mmol/L Chloride 107 (98-107) mmol/L Carbon Dioxide 25 (22-32) mmol/L BUN 15 (9-20) mg/dL Creatinine 1.33 H (0.66-1.25) mg/dL Estimated GFR > 60 (>60) mL/min BUN/Creatinine Ratio 11.3 (6-22) Glucose 87 (80-110) mg/dL Calcium 8.9 (8.4-10.2) mg/dL Total Bilirubin 0.3 (0.2-1.3) mg/dL AST 27 (17-59) IU/L ALT 15 (<50) IU/L Alkaline Phosphatase 70 (38-126) U/L Total Protein 7.5 (6.3-8.2) g/dL Albumin 4.6 (3.5-5.0) g/dL Globulin 2.9 (1.7-4.1) g/dL Albumin/Globulin Ratio 1.6 (1.0-2.8) Blood Type Antibody Screen Crossmatch 01/06/22 01/07/22 Range/Units 19:40 01:05 WBC 7.9 (4.5-11.0) X10^3/uL RBC 3.75 L (4.5-5.9) X10^6/uL Hgb 9.7 L (13.5-17.5) g/dL Hct 29.3 L (41-53) % MCV 78.1 L (80-100) fL MCH 26.0 (26-34) PG MCHC 33.3 (30-36) % RDW 18.5 H (11.6-14.8) % Plt Count 272 (150-400) X10^3/uL Neut % (Auto) 61.3 (50-75) % Lymph % (Auto) 26.5 (25-40) % [place] % (Auto) 7.9 (3-14) % Eos % (Auto) 3.8 (2-4) % Baso % (Auto) 0.5 (0-2) % Neut # (Auto) 4800 (8795-1210) /uL Lymph # (Auto) 2100 (0237-1292) /uL [place] # (Auto) 600 (0-900) /uL Eos # (Auto) 300 (0-450) /uL Baso # (Auto) 0 (0-100) /uL RBC Morphology Hypochromasia Anisocytosis Microcytosis Target Cells Ovalocytes Schistocytes PT (10.1-12.7) SECONDS INR (0.9-1.3) APTT (26.4-36.2) SECONDS Sodium (137-145) mmol/L Potassium (3.4-5.1) mmol/L Chloride (98-107) mmol/L Carbon Dioxide (22-32) mmol/L BUN (9-20) mg/dL Creatinine (0.66-1.25) mg/dL Estimated GFR (>60) mL/min BUN/Creatinine Ratio (6-22) Glucose (80-110) mg/dL Calcium (8.4-10.2) mg/dL Total Bilirubin (0.2-1.3) mg/dL AST (17-59) IU/L ALT (<50) IU/L Alkaline Phosphatase (38-126) U/L Total Protein (6.3-8.2) g/dL Albumin (3.5-5.0) g/dL Globulin (1.7-4.1) g/dL Albumin/Globulin Ratio (1.0-2.8) Blood Type B Positive Antibody Screen Negative Crossmatch See Detail MDM Narrative Medical decision making narrative: Appropriate for discharge home. Exam and laboratory studies are reassuring. No imaging indicated. I did review with general surgeon. Treatment plan in place. Patient to continue Xarelto as he does not know source of his blood clots in the past. It is likely slow ongoing GI bleed. Appropriate for outpatient endoscopy of the stomach and colonoscopy. Patient feeling much better at time of discharge. He desires discharge home. Protonix started here. Discharge Plan Departure Patient Disposition: Home Clinical Impression: GI (gastrointestinal bleed), Anemia Instructions: Gastrointestinal Bleeding Activity Restrictions/Additional Instructions: Call provided general surgeon office today to schedule colonoscopy and endoscopy of his stomach. Prescription for Protonix has been provided for you. Return if worse if any questions or concerns of any increase black stools or if any bloody stools. Return if any dizziness or near fainting. Return if any trouble breathing. Prescriptions: New pantoprazole [Protonix] 40 mg tablet,delayed release (DR/EC) 40 mg PO DAILY Qty: 30 0RF No Action triamcinolone acetonide 0.5 % ointment 1 ea Topical PRN PRN (Reason: Skin Irritation) tamsulosin 0.4 mg capsule,extended release 24hr 0.8 mg PO QAM mirtazapine 30 mg tablet 30 mg PO QPM sertraline 25 mg tablet 25 mg PO QAM risperidone 1 mg tablet 1 mg PO QPM losartan 100 mg tablet 100 mg PO DAILY Xarelto 20 mg tablet 20 mg PO DAILY Qty: 30 3RF bupropion HCl 150 mg Tablet Sustained-Release 12 Hr 150 mg PO BID ibuprofen 400 mg Tablet 400 mg PO Q6H PRN (Reason: Pain, Moderate) omeprazole 20 mg Capsule,Delayed Release(Dr/Ec) 20 mg PO DAILY fluticasone propionate 50 mcg/actuation [place],Suspension 2 spray INTRANASAL DAILY nicotine 14 mg/24 hr patch 24 hour 14 mg topical DAILY diltiazem HCl [DILT-XR] 180 mg capsule,ext.rel 24h degradable 180 mg PO DAILY rosuvastatin 20 mg tablet 20 mg PO DAILY budesonide-formoterol [Symbicort] 160-4.5 mcg/actuation HFA aerosol inhaler 1 inh INHALATION DIRECTED Triumeq 600-50-300 mg tablet 1 tab PO DAILY Label Comments: patient states takes pm lidocaine 5 % adhesive patch,medicated 1 patch TOP Q24H Qty: 30 0RF Rx Instructions: leave on most painful area for up to 12 hrs cyclobenzaprine 10 mg tablet 10 mg PO BID PRN (Reason: muscle spasm) Qty: 10 0RF Referrals: Shireen Farmer MD [Physician] - Beth Connor ARNP [Primary Care Provider] - Visit Report Forms: Patient Portal/API
[2022-01-06 19:12] LABS: Hypochromasia 2+
[2022-01-06 19:13] LABS: Target Cells 1+
[2022-01-06 19:14] LABS: Anisocytosis 3+
[2022-01-06 20:36] LABS: INR 1.4 (0.9-1.3); Prothrombin Time 16.4 SECONDS (10.1-12.7)
[2022-01-06 20:39] LABS: PTT Partial Thromboplastin Tim 34 SECONDS (26.4-36.2)
[2022-01-07] VITALS (7 sets, daily range): BP systolic 169–181; BP diastolic 78–89; PULSE 65–81; RESP 18; TEMP 36.6; O2SAT 97–100
--- NOTE | 2022-01-07 00:58 | PC.NURSE ---
Pt 2nd unit of packed RBCs finished transfusing. Pt denies any symptoms of a transfusion reaction.
[2022-01-07 01:25] LABS: Add Manual Diff / Slide Review NO; Basophils Absolute Auto 0 /uL (0-100); Basophils Percent Auto 0.5 % (0-2); Eosinophils Absolute Auto 300 /uL (0-450); Eosinophils Percent Auto 3.8 % (2-4); Hemoglobin 9.7 g/dL (13.5-17.5); Lymphocytes Absolute Auto 2100 /uL (1100-4500); Lymphocytes Percent Auto 26.5 % (25-40); Mean Corpuscular HGB Conc 33.3 % (30-36); Mean Corpuscular Volume 78.1 fL (80-100); Monocytes Absolute Auto 600 /uL (0-900); Monocytes Percent Auto 7.9 % (3-14); Neutrophils Absolute Auto 4800 /uL (1500-7000); Neutrophils Percent Auto 61.3 % (50-75); Platelet Count 272 X10^3/uL (150-400); Red Blood Cell Count 3.75 X10^6/uL (4.5-5.9); Red Cell Distribution Width 18.5 % (11.6-14.8); White Blood Cell Count 7.9 X10^3/uL (4.5-11.0)
[2022-01-07 01:30] LABS: Hematocrit 29.3 % (41-53)
--- NOTE | 2022-01-07 01:38 | PC.NURSE ---
Pt up walking in room, reports feeling much better. Provider to make pt ready for discharge soon.
== END 2022-01-07 01:45 | disposition home or self-care (01) ==
PROVIDERS: Emergency Provider Emergency Medicine; PCP Nurse Practitioner Family; Referring Provider Nurse Practitioner Family
DX: K92.2 Gastrointestinal hemorrhage, unspecified (principal); D64.9 Anemia, unspecified
CPT/HCPCS: 36415; 36430; 80053; 85025; 85610; 85730; 86850; 86900; 86901; 99284; P9016

== ENCOUNTER → 2022-03-19 07:53 | Outpatient (CLI) | payer OTHER, MEDICAID, SELFPAY ==
[2022-02-04 09:32] VITALS: BMI 23.0
--- NOTE | 2022-03-19 07:55 | DI.CT.S_ITS ---
PROCEDURE: CT CHEST WO CON INDICATIONS: Solitary pulmonary nodule TECHNIQUE: Noncontrast 5 mm thick sections acquired from the pulmonary apices to the posterior costophrenic angles. 1 mm lung window, 5 mm thick coronal and sagittal and 7 mm axial MIP reformats were then acquired. For radiation dose reduction, the following was used: automated exposure control, adjustment of mA and/or kV according to patient size. COMPARISON: [facility], CT, CT LOW DOSE LUNG CA SCREENING, 05/20/2021, 16:48. [facility], CT, CT CHEST WO CON, 04/16/2020, 14:42. FINDINGS: Image quality: Slightly motion degraded. Lungs and pleura: Emphysema. Scattered areas of suspected scarring and atelectasis. There are multiple individual nodules under 6 mm, for example 6/58 on the left, 6/85 on the left, and 6/102 on the right. None are overtly suspicious/growing. Mediastinum: Atherosclerotic calcifications. No aneurysm. No adenopathy. Bones and chest wall: Thyroid within normal limits. Mild gynecomastia. No acute or suspicious osseous abnormality. Age-indeterminate deformity of the right distal clavicle. This is partially seen. Abdomen: Partially seen left renal calculi. IMPRESSION: Stable small pulmonary nodules. Consider continued lung cancer screening low-dose CT if eligible. Scattered areas of suspected scarring and atelectasis. Emphysema. Dictated by: Alex Alaniz M.D. on 03/19/2022 at 8:54 Approved by: Alex Alaniz M.D. on 03/19/2022 at 9:00
== END ==
PROVIDERS: PCP Nurse Practitioner Family; Referring Provider Internal Medicine; Visit Provider Internal Medicine
DX: R91.1 Solitary pulmonary nodule (principal); J43.8 Other emphysema
CPT/HCPCS: 71250

== ENCOUNTER → 2022-03-24 09:26 | Outpatient (CLI) | payer OTHER, MEDICAID, SELFPAY ==
[2022-02-04 09:32] VITALS: BMI 23.0
[2022-03-24 12:15] LABS: COVID19 -Nasal RAPID Negative (Negative)
== END ==
PROVIDERS: PCP Nurse Practitioner Family; Visit Provider Surgery
DX: Z01.812 Encounter for preprocedural laboratory examination (principal); Z20.822 Contact with and (suspected) exposure to COVID-19
CPT/HCPCS: 87635; C9803

== ENCOUNTER 2022-03-25 07:10 | Day surgery (SDC) | payer OTHER, MEDICAID, SELFPAY ==
[2022-02-04 09:32] VITALS: BMI 23.0
--- NOTE | 2022-03-25 | PATH_ITS ---
[facility] Accession Number: [id number] . 01 Material submitted: . PART A: duodenum - DUODENUM BIOPSY PART B: gastrointestinal site - ANTRUM BIOPSY PART C: esophagus - ESOPHAGUS BIOPSIES . 01 Diagnosis: A. Duodenum, Biopsy: Small bowel mucosa with no diagnostic abnormality. Negative for active inflammation, features of sprue, dysplasia, or malignancy. . B. Stomach, Antrum, Biopsy: Chronic gastritis with extensive intestinal metaplasia (involving three of three fragments). Negative for Helicobacter by immunohistochemistry. Negative for dysplasia and malignancy. . C. 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 Separate fragments of squamous mucosa with no diagnostic abnormality including no increased intraepithelial eosinophils. Negative for dysplasia and malignancy. [facility] 03/26/2022 1255 Local . 01 Electronically signed: . Emily Mathews MD, Pathologist NPI- [id number] . 01 Gross description: . Part A: DUODENUM BIOPSY: Received in formalin are 3 fragment(s) of mccray, soft tissue measuring 0.1 x 0.1 x 0.1 cm to 0.2 x 0.2 x 0.2 cm submitted entirely in 1 cassette(s) Part B: ANTRUM BIOPSY: Received in formalin are 3 fragment(s) of mccray, soft tissue measuring 0.1 x 0.1 x 0.1 cm to 0.3 x 0.3 x 0.2 cm submitted entirely in 1 cassette(s) Part C: ESOPHAGUS BIOPSIES: Received in formalin are 3 fragment(s) of mccray, soft tissue measuring 0.1 x 0.1 x 0.1 cm to 0.2 x 0.2 x 0.2 cm submitted entirely in 1 cassette(s) /[facility] 03/26/2022 0044 Local . 01 Microscopic: . B. An immunohistochemical stain was performed to evaluate for Helicobacter organisms and is negative. The control stain showed appropriate reactivity. . * This test was developed and its performance characteristics determined by [facility]. It has not been cleared or approved by the U.S. Food and Drug Administration. The FDA has determined that such clearance or approval is not necessary. This test is used for clinical purposes. It should not be regarded as investigational or for research. . 01 Pathologist provided ICD-10: D64.9 . 01 CPT . 288105, 857487, 114270, [id number] Specimen Comment: A courtesy copy of this report has been sent to [phone] Performed at: 01 [facility] [address], [place], [place] [id number] MD Jonatan Lovell MD Phone: [phone]
[2022-03-25 07:55] VITALS: BP 152/77; PULSE 57; RESP 16; TEMP 36.6; O2SAT 99
[2022-03-25 07:56] VITALS: BMI 23.3
[2022-03-25] MEDS: LACTATED RINGERS 1,000 ML 84 ML IV (08:15)
--- NOTE | 2022-03-25 08:29 | PM.PREOP ---
Pre-operative Note COVID-19 COVID-19 status: Negative Result date/Date tested (Pos, Neg/Pending): 03/24/22 Interval Note History & Physical reviewed/Exam performed by Physician: Yes Changes to H&P: No ASA Class (for procedural sedation): II
[2022-03-25] MEDS: LIDOCAINE 4% SOLN 50 ML 20 ML TOP (08:40)
[2022-03-25] MEDS: MIDAZOLAM 5 MG/5 ML VIAL 8 MG IV (08:42)
[2022-03-25] MEDS: fentaNYL 100 MCG/2 ML INJ 150 MCG IV (08:42)
--- NOTE | 2022-03-25 09:20 | PM.OP.EC ---
Operative Date/Time/Diagnoses Date of procedure: 03/25/22 Time of procedure: 09:20 Pre-op diagnosis: Anemia Post-op diagnosis: same Procedure & Clinicians Study performed: EGD and colonoscopy Same procedure as scheduled: Yes Surgeon: Jean Marie Tim Procedure Notes Procedure in detail: Surgeon: Jean Marie Tim MD Procedure in detail: A timeout was performed. A bite blocked was placed and monitors were attached to the patient. The patient was positioned in a left lateral decubitus position. Sedation was administered with Versed fentanyl. Once the patient was sedated the endoscope was inserted through the bite block and passed through the esophagus and stomach and into the duodenum. No ulcers or other gross abnormalities were noted. Random biopsies were taken from the duodenum and antrum. The endoscope was retroflexed and no hiatal hernia was noted. The endoscope was straightned and withdrawn into the esophagus. There was linear pitting along length the esophagus and random biopsies were taken from the esophageal mucosa. Findings: Linear pitting along the mucosa Next we repositioned the patient for a colonoscopy. A digital rectal exam was performed and was normal. The colonoscope was inserted and advanced to the cecum. The appendiceal orifice was identified and photographed. The prep was suboptimal. The scope was slowly withdrawn over greater than 6 minutes. No lesions were noted. The scope was retroflexed in the rectum and no lesions were noted there. Findings: Normal colon EBL: 5 mL Versed: 9 Fentanyl: 150 mcg Scope withdrawal time: 6 Sedation minutes: 36 Post-procedure Recommendations: Colonscopy in 5 years Disposition: PACU
[2022-03-25 09:24] VITALS: BP 149/94; PULSE 89; RESP 20; TEMP 36.5; O2SAT 95
[2022-03-25 09:29] VITALS: BP 167/98; PULSE 89; RESP 20; O2SAT 100
[2022-03-25 09:34] VITALS: BP 175/94; PULSE 82; RESP 16; O2SAT 100
--- NOTE | 2022-03-25 09:39 | SUR.PHASEI ---
Handoff to [facility] for phase 2.
[2022-03-25 09:47] VITALS: BP 164/93; PULSE 80; RESP 18; TEMP 36.7; O2SAT 97
== END 2022-03-25 10:33 | disposition home or self-care (01) ==
PROVIDERS: PCP Nurse Practitioner Family; Referring Provider Surgery; Visit Provider Surgery
PROC: 0DJ08ZZ Inspection of Upper Intestinal Tract, Via Natural or Artificial Opening Endoscopic (ICD-10-PCS; CPT 43235; principal; 2022-03-25 08:30)
PROC: 0DJD8ZZ Inspection of Lower Intestinal Tract, Via Natural or Artificial Opening Endoscopic (ICD-10-PCS; CPT 45378; 2022-03-25 08:30)
DX: D64.9 Anemia, unspecified (principal); K29.50 Unspecified chronic gastritis without bleeding; K22.70 Barrett's esophagus without dysplasia
CPT/HCPCS: 45378; 43239; 99152; 99153; J2250; J3010

== ENCOUNTER → 2022-08-05 13:44 | Outpatient (CLI) | payer OTHER, MEDICAID, SELFPAY ==
[2022-02-04 09:32] VITALS: BMI 23.0
[2022-08-05 14:28] LABS: COVID19 -Nasal RAPID Negative (Negative)
== END ==
PROVIDERS: PCP Nurse Practitioner Family; Referring Provider Internal Medicine; Visit Provider Internal Medicine
DX: Z20.822 Contact with and (suspected) exposure to COVID-19 (principal)
CPT/HCPCS: 87635; C9803

== ENCOUNTER → 2022-08-06 08:32 | Outpatient (CLI) | payer OTHER, MEDICAID, SELFPAY ==
[2022-02-04 09:32] VITALS: BMI 23.0
--- NOTE | 2022-08-10 11:26 | PM.PFT.1 ---
Pulmonary Function Test Referral & Results Date Patient Seen: 08/06/22 Requesting provider: Evan Wallace Results: The spirometry demonstrates an FVC of 2.83 L which is 86% of predicted. The FEV1 was measured at 1.53 L which is 60% of predicted. The FEV1/FVC ratio was 54 which is 69% of predicted. The diffusing capacity was measured at 11.64 which is 45% of predicted. No hemoglobin value was provided, so no correction for potential anemia could be made, if appropriate. Interpretation: This study demonstrates moderate obstructive lung disease based on reduction FEV1 and FEV1/FVC ratio. There is also moderate to moderately severe reduction diffusing capacity suggesting significant disease at the capillary alveolar level Of note there was significant coughing during testing which may affect above results
== END ==
PROVIDERS: PCP Nurse Practitioner Family; Referring Provider Internal Medicine; Visit Provider Internal Medicine
DX: J43.2 Centrilobular emphysema (principal); F17.210 Nicotine dependence, cigarettes, uncomplicated
CPT/HCPCS: 94010; 94729

== ENCOUNTER → 2023-03-22 13:42 | Outpatient (CLI) | payer OTHER, MEDICAID, SELFPAY ==
[2022-02-04 09:32] VITALS: BMI 23.0
[2023-03-22 14:52] LABS: Estimated Glomerular Filt Rate > 60 mL/min (>60)
== END ==
PROVIDERS: PCP Nurse Practitioner Family; Referring Provider Radiology Diagnostic Radiology; Visit Provider Radiology Diagnostic Radiology
DX: I26.99 Other pulmonary embolism without acute cor pulmonale (principal)
CPT/HCPCS: 36415; 82565

== ENCOUNTER → 2023-03-23 12:18 | Outpatient (CLI) | payer OTHER, MEDICAID, SELFPAY ==
[2022-02-04 09:32] VITALS: BMI 23.0
--- NOTE | 2023-03-23 | DI.CT.S_ITS ---
PROCEDURE: CT IVP A/P W/WO INDICATIONS: Asymptomatic microscopic hematuria TECHNIQUE: 5 mm thick noncontrast images acquired from the diaphragm to the symphysis pubis. After the administration of intravenous contrast, 5 mm thick images acquired from the diaphragm to the symphysis pubis after a 10-minute delay. 2 mm thick coronal and sagittal reformats were then performed of the kidneys and ureters. For radiation dose reduction, the following was used: automated exposure control, adjustment of mA and/or kV according to patient size. COMPARISON: [facility], CT, CT ABDOMEN PELVIS WO/W CON, 03/29/2018, 8:45. FINDINGS: Lung bases: No pleural effusion. Urinary system: 1.2 cm nonobstructing stone left upper kidney 959 Hounsfield units. 9 mm stone left inferior kidney 876 Hounsfield units. no right renal stone. no hydroureteronephrosis bilaterally. no ureteral or bladder stone. Small hypodensity left upper kidney too small to characterize statistically likely to represent a benign cyst. No obvious evidence of a solid renal mass. The opacified portions of the renal collecting systems and ureters are unremarkable without a definite filling defect demonstrated. Other solid organs: Liver is normal in size and enhancement. Gallbladder contains stones as before . Biliary system is non dilated. Pancreas enhances normally. Spleen is normal in size and enhancement. No adrenal nodules. Peritoneum and bowel: No bowel obstruction. No free air or substantial free fluid. Nodes and vessels: No retroperitoneal or mesenteric adenopathy by size criteria. Aorta and inferior vena cava are normal in size. Pelvis: No pathologic free pelvic fluid. No adenopathy. Bones: Multilevel degenerative change of the visualized spine. IMPRESSION: 1. Nonobstructing left nephrolithiasis. 2. Cholelithiasis. Dictated by: Mack Baltazar M.D. on 03/24/2023 at 9:05 Approved by: Mack Baltazar M.D. on 03/24/2023 at 9:29
== END ==
PROVIDERS: PCP Nurse Practitioner Family; Referring Provider Physician Assistant Medical; Visit Provider Physician Assistant Medical
DX: N20.0 Calculus of kidney (principal); R31.21 Asymptomatic microscopic hematuria; K80.20 Calculus of gallbladder without cholecystitis without obstruction
CPT/HCPCS: 74178; Q9967

== ENCOUNTER → 2023-06-22 10:04 | Outpatient (CLI) | payer OTHER, MEDICAID, SELFPAY ==
[2022-02-04 09:32] VITALS: BMI 23.0
--- NOTE | 2023-06-22 10:10 | DI.CT.S_ITS ---
PROCEDURE: CT CHEST WO CON INDICATIONS: LUNG CANCER SCREENING TECHNIQUE: Noncontrast 2.0-2.5 mm thick sections acquired from the pulmonary apices to the posterior costophrenic angles. 7 mm thick axial MIP, and 5 mm coronal and sagittal reformats were then acquired. For radiation dose reduction, the following was used: automated exposure control, adjustment of mA and/or kV according to patient size. COMPARISON: [facility], CT, CT CHEST WO CON, 03/19/2022, 8:01. FINDINGS: Image quality: Diagnostic, given the low radiation dose technique. Lungs and pleura: Moderate diffuse emphysematous change with biapical predominance. Pulmonary nodules are as follows (all described on series 4): 1. Unchanged 2 mm pulmonary nodule, posterior left upper lobe, current image 100 No new or increasing pulmonary nodules. Mediastinum: Heart size is normal. No pericardial effusion. No mediastinal adenopathy by size criteria. Thoracic aorta and central pulmonary arteries are normal in size. Esophagus is normal in caliber. No hiatal hernia. Bones and chest wall: No suspicious bony lesions. No vertebral body compression fractures. No axillary or supraclavicular adenopathy by size criteria. No thyroid nodules which require sonographic follow up, per consensus guidelines. Upper Abdomen: Visualized upper abdomen solid organs and bowel loops appear normal in the absence of contrast. IMPRESSION: Moderate centrilobular emphysema. Stable tiny pulmonary nodules. LUNG-RADS 1; continued annual screening, if eligible. Clinically Significant Non-pulmonary Findings: None. Dictated by: Sudhakar Amaro M.D. on 06/22/2023 at 11:23 Approved by: Sudhakar Amaro M.D. on 06/22/2023 at 11:29
== END ==
PROVIDERS: PCP Nurse Practitioner Family; Referring Provider Internal Medicine; Visit Provider Internal Medicine
DX: Z12.2 Encounter for screening for malignant neoplasm of respiratory organs (principal); J43.2 Centrilobular emphysema; R91.8 Other nonspecific abnormal finding of lung field
CPT/HCPCS: 71250

== ENCOUNTER → 2023-10-12 08:23 | Outpatient (CLI) | payer OTHER, MEDICAID, SELFPAY ==
[2022-02-04 09:32] VITALS: BMI 23.0
== END ==
LOC: RESP 08:23
PROVIDERS: PCP Nurse Practitioner Family; Referring Provider Internal Medicine; Visit Provider Internal Medicine
DX: J43.2 Centrilobular emphysema (principal); F17.210 Nicotine dependence, cigarettes, uncomplicated
CPT/HCPCS: 94010; 94729

== ENCOUNTER 2024-10-04 13:47 | Emergency (ER) | payer OTHER, SELFPAY ==
[2022-02-04 09:32] VITALS: BMI 23.0
[2024-10-04 13:53] VITALS: BP 160/81; PULSE 76; RESP 18; TEMP 36.4; O2SAT 100; BMI 22.5
--- NOTE | 2024-10-04 14:17 | ED_ITS ---
HPI - Extremity Problem General Chief complaint: Extremity Problem,Nontraumatic Stated complaint: Right big toe pain, Left shoulder pain Time Seen by Provider: 10/04/24 14:17 History of Present Illness HPI Narrative: 64-year-old gentleman with a history of being HIV positive, hypertension, COPD, depression has been having increasing right great toe pain for a number of weeks, talked to his provider who recommended coming to the emergency department for x-rays. Patient is not having any fevers, there was no redness, drainage, lower extremity swelling. Incidentally also complains of left shoulder pain. Related Data Home Medications Medication Instructions Recorded Confirmed mirtazapine 30 mg tablet 30 mg PO QPM 12/18/17 03/25/22 risperidone 1 mg tablet 1 mg PO QPM 12/18/17 03/25/22 sertraline 25 mg tablet 25 mg PO QAM 12/18/17 03/25/22 tamsulosin 0.4 mg capsule 0.8 mg PO QAM 12/18/17 03/25/22 triamcinolone acetonide 0.5 % 1 ea topical PRN PRN Skin 12/18/17 03/25/22 topical ointment Irritation bupropion HCl 150 mg tablet,12 hr 150 mg PO BID 02/11/19 03/25/22 sustained-release fluticasone propionate 50 2 spray intranasal DAILY 02/11/19 03/25/22 mcg/actuation nasal spray,suspension ibuprofen 400 mg tablet 400 mg PO Q6H PRN Pain, Moderate 02/11/19 03/25/22 omeprazole 20 mg capsule,delayed 20 mg PO DAILY 02/11/19 03/25/22 release abacavir 600 mg-dolutegravir 50 1 tab PO DAILY 09/25/19 03/25/22 mg-lamivudine 300 mg tablet (Triumeq) budesonide-formoterol HFA 160 1 inh inhalation DIRECTED 09/25/19 03/25/22 mcg-4.5 mcg/actuation aerosol inhaler (Symbicort) diltiazem HCl 180 mg 180 mg PO DAILY 09/25/19 03/25/22 capsule,extended release 24 hr, controlled (DILT-XR) rosuvastatin 20 mg tablet 20 mg PO DAILY 09/25/19 03/25/22 diclofenac sodium 1 % topical gel 2 g topical QID 02/24/22 03/25/22 (Arthritis Pain (diclofenac)) ferrous sulfate 325 mg (65 mg 325 mg PO DAILY 02/24/22 03/25/22 iron) tablet losartan 100 mg tablet 100 mg PO DAILY 02/24/22 03/25/22 metoprolol succinate 200 mg 200 mg PO DAILY 02/24/22 03/25/22 tablet,extended release 24 hr multivit-mins no.51-FA 100 mcg-vit tab PO 02/24/22 02/24/22 K 350 mcg-co Q10 5 mg chew tablet (AquADEKs) Previous Rx's Medication Instructions Recorded rivaroxaban 20 mg tablet (Xarelto) 20 mg PO DAILY #30 tabs 12/23/17 pantoprazole 40 mg tablet,delayed 40 mg PO DAILY #30 tabs 01/07/22 release (Protonix) Allergies Allergy/AdvReac Type Severity Reaction Status Date / Time No Known Drug Allergies Allergy Verified 03/25/22 07:10 Review of Systems Review of Systems Narrative: Pertinent positive and negative findings as per HPI Patient History Medical History (Updated 10/04/24 @ 14:34 by Kayleigh Weathers MD) Pulmonary embolism COPD (chronic obstructive pulmonary disease) Depression Hypertension HIV disease Surgical History History of excision of testis Family History Other Family history non-contributory Social History household members: none Smoking Status: Current every day smoker alcohol intake: former Smoking Status: Current every day smoker tobacco type: cigarettes alcohol intake frequency: holidays/special occasions only Exam Initial Vital Signs Initial Vital Signs: Vital Signs Temperature 97.6 F 10/04/24 13:53 Pulse Rate 76 10/04/24 13:53 Respiratory Rate 18 10/04/24 13:53 Blood Pressure 160/81 H 10/04/24 13:53 Pulse Oximetry 100 10/04/24 13:53 Oxygen Delivery Method Room Air 10/04/24 13:53 General: Alert appropriate in no acute distress Respiratory: Able to speak in full sentences, no obvious respiratory distress Skin: No obvious rashes, warm and dry Neurologic: Grossly intact no obvious asymmetries or abnormalities Psych: appropriate insight and affect, cooperative Extremity: Right great toe is significant onychomycosis and is quite dystrophic. Does not appear to be growing into the soft tissue of the paronychia without obvious infection. There is no obvious nail edge that could be elevated Course Orders Ordered: ED Orders 10/04/24 14:17 XR shoulder LT min 2V Stat 10/04/24 14:18 XR toe RT min 2V Stat Vital Signs Vital signs: Vital Signs - 8 hr 10/04/24 13:53 Temperature 97.6 F Pulse Rate 76 Respiratory Rate 18 Blood Pressure 160/81 H Pulse Oximetry 100 Oxygen Delivery Method Room Air MDM - Extremity (Nontraumatic) MDM Narrative Medical decision making narrative: 64-year-old gentleman with increasing right great toe pain for couple of weeks. Has significant dystrophic nails with onychomycosis enter believe that is the source of his pain. There was no sign of infection at this time. He may b enefit from having the great toenail simply removed, without anesthetic and minor surgical intervention. Prior to that level of intervention I believe having a field operations manager take a look of the toenail we will be beneficial. If he needs to have minor surgical intervention he may best be served by having entire now removed. X-ray of the toe are reassuring, no sign of bony involvement or underlying abscess. X-ray of the left shoulder shows arthritis and no other specific concerns. Reassurance is given. We will refer him to [facility], Dr. Llanes for further evaluation Discharge Plan Departure Patient Disposition: Home Clinical Impression: Dystrophic nail, Onychomycosis Instructions: DI for Ingrown Toenail Activity Restrictions/Additional Instructions: Thank you for coming in today I believe that the reason your great toe is hurting so much as because the toenail is growing into the nail bed. The nail itself is quite thickened which is presumably due to chronic nail fungus. I am going to suggest that you contact [facility] at [phone] and request consultation with Podiatry. These with the surgeons that specialize in nail and nail disease. To make a significant difference in lifting up the edge of the nail for you, you would need to have anesthetic and use some sharper tools. If we go to that level you may be better served by actually having the entire toenail removed so it grows in a bit thinner and less painful. Your x-ray was unremarkable, there is no underlying infection, you do not need any antibiotics today Asking the field operations manager their opinion for treatment is the next appropriate step. Prescriptions: No Action diclofenac sodium [Arthritis Pain (diclofenac)] 1 % gel 2 g topical QID Rx Instructions: apply to single elbow, wrist or hand; for hand includes palm/fingers/back of hand AquADEKs 100-350-5 mcg-mcg-mg tablet,chewable PO ferrous sulfate 325 mg (65 mg iron) tablet 325 mg PO DAILY metoprolol succinate 200 mg tablet extended release 24 hr 200 mg PO DAILY triamcinolone acetonide 0.5 % ointment 1 ea Topical PRN PRN (Reason: Skin Irritation) tamsulosin 0.4 mg capsule,extended release 24hr 0.8 mg PO QAM mirtazapine 30 mg tablet 30 mg PO QPM sertraline 25 mg tablet 25 mg PO QAM risperidone 1 mg tablet 1 mg PO QPM Xarelto 20 mg tablet 20 mg PO DAILY Qty: 30 3RF losartan 100 mg tablet 100 mg PO DAILY Rx Instructions: 2 TABLETS DAILY bupropion HCl 150 mg Tablet Sustained-Release 12 Hr 150 mg PO BID ibuprofen 400 mg Tablet 400 mg PO Q6H PRN (Reason: Pain, Moderate) omeprazole 20 mg Capsule,Delayed Release(Dr/Ec) 20 mg PO DAILY fluticasone propionate 50 mcg/actuation [place],Suspension 2 spray INTRANASAL DAILY diltiazem HCl [DILT-XR] 180 mg capsule,ext.rel 24h degradable 180 mg PO DAILY rosuvastatin 20 mg tablet 20 mg PO DAILY budesonide-formoterol [Symbicort] 160-4.5 mcg/actuation HFA aerosol inhaler 1 inh INHALATION DIRECTED Triumeq 600-50-300 mg tablet 1 tab PO DAILY Patient Comments: patient states takes pm pantoprazole [Protonix] 40 mg tablet,delayed release (DR/EC) 40 mg PO DAILY Qty: 30 0RF Referrals: Beth Connor ARNP [Primary Care Provider] - Stand Alone Forms: Patient Portal/API/Survey
--- NOTE | 2024-10-04 14:17 | DI.RAD.S_ITS ---
PROCEDURE: XR SHOULDER LT MIN 2V INDICATIONS: pain TECHNIQUE: 3 views of the shoulder were acquired. COMPARISON: None. FINDINGS: Bones: No fractures or dislocations. [id number] acromioclavicular joint osteoarthritic changes are seen. Mild glenohumeral joint osteoarthritic changes also noted. No suspicious bony lesions. Visualized ribs appear intact. Soft tissues: No suspicious soft tissue calcifications. IMPRESSION: Virq-lm-tjgnpsel left shoulder joint osteoarthritis. No acute fracture or dislocation. No gross soft tissue abnormalities. Dictated by: Lew Ayala M.D. on 10/04/2024 at 14:56 Approved by: Lew Ayala M.D. on 10/04/2024 at 15:05
--- NOTE | 2024-10-04 14:18 | DI.RAD.S_ITS ---
PROCEDURE: XR TOE RT MIN 2V INDICATIONS: great toe/ pain TECHNIQUE: 3 views of the 1st toe(s) acquired. COMPARISON: None. FINDINGS: Bones: No fractures or dislocations. Mild hallux valgus angulation of the 1st MTP joint with medial bunion formation. Mild interphalangeal and 1st MTP joint degeneration. No suspicious bony lesions. Soft tissues: No suspicious soft tissue densities. IMPRESSION: No acute osseous abnormalities. Mild degenerative changes. Dictated by: Viktor Navarro M.D. on 10/04/2024 at 14:52 Approved by: Viktor Navarro M.D. on 10/04/2024 at 14:53
[2024-10-04 15:00] VITALS: BP 160/74; PULSE 71; RESP 16; TEMP 36.6; O2SAT 100
== END 2024-10-04 15:30 | disposition home or self-care (01) ==
PROVIDERS: Emergency Provider Emergency Medicine; PCP Nurse Practitioner Family
DX: B35.1 Tinea unguium (principal); L60.3 Nail dystrophy; M19.012 Primary osteoarthritis, left shoulder; Z21 Asymptomatic human immunodeficiency virus [HIV] infection status
CPT/HCPCS: 73030; 73660; 99281; 99283

== ENCOUNTER → 2025-01-02 08:26 | Outpatient (CLI) | payer OTHER, SELFPAY ==
[2022-02-04 09:32] VITALS: BMI 23.0
--- NOTE | 2025-01-02 | DI.MRI.S_ITS ---
PROCEDURE: MR SHOULDER LT WO CON INDICATIONS: pain in lft shoulder TECHNIQUE: Noncontrast oblique coronal T2 fast spin echo with fat saturation, oblique sagittal T1 spin echo and T2 fast spin echo with fat saturation, axial T1 spin echo and T2 fast spin echo with fat saturation through the shoulder. COMPARISON: None. FINDINGS: Image quality: Excellent. Rotator cuff: Low to moderate grade bursal surface partial thickness tear involving distal supraspinatus at its insertion on the humeral head extending to musculotendinous junction. Low-grade articular surface partial-thickness tear involving distal infraspinatus at its insertion on the humeral head. Distal subscapularis tendinosis. No full-thickness rotator cuff tendon rupture. Sagittal images demonstrate mild supraspinatus muscle atrophy. Bones and bursae: No bone marrow contusions or fractures. Mild acromioclavicular joint osteoarthritic changes are seen. Type 2 acromion without an os acromiale. Small amount of joint effusion and subacromial subdeltoid bursal fluid, no loose bodies. Capsule and soft tissues: Subtle fraying of superior anterior glenoid labrum with T2 hyperintense signal concerning for subtle superior anterior glenoid labral tear. The long head of the biceps tendon demonstrates normal location and morphology. The rotator interval appears normal, without fibrosis. The coracohumeral ligament is normal in thickness. IMPRESSION: 1. Low to moderate grade bursal surface partial thickness tear involving distal supraspinatus extending to musculotendinous junction. Low-grade articular surface partial-thickness tear involving distal infraspinatus. Distal subscapularis tendinosis. No full-thickness rotator cuff tendon rupture. Very mild supraspinatus muscle atrophy. 2. Mild acromioclavicular joint osteoarthritis. No fracture or dislocation. Small amount of joint fluid and subacromial subdeltoid bursal fluid, no loose bodies. 3. Finding is suggestive of subtle superior anterior glenoid labral tear. Dictated by: Lew Ayala M.D. on 01/02/2025 at 21:15 Approved by: Lew Ayala M.D. on 01/02/2025 at 22:03
== END ==
PROVIDERS: PCP Nurse Practitioner Family; Referring Provider Nurse Practitioner Family; Visit Provider Nurse Practitioner Family
DX: M75.112 Incomplete rotator cuff tear or rupture of left shoulder, not specified as traumatic (principal); M19.012 Primary osteoarthritis, left shoulder; M25.512 Pain in left shoulder
CPT/HCPCS: 73221

== ENCOUNTER → 2025-04-03 13:52 | Outpatient (CLI) | payer OTHER, SELFPAY ==
[2022-02-04 09:32] VITALS: BMI 23.0
--- NOTE | 2025-04-03 13:55 | DI.US.S_ITS ---
PROCEDURE: US RENAL COMPLETE INDICATIONS: CHRONIC KIDNEY DISEASE TECHNIQUE: Real-time scanning was performed of the kidneys and bladder, with image documentation. COMPARISON: None. FINDINGS: Kidneys: Kidneys are normal in size. Right kidney measures 9.5 cm long; left kidney measures 9.1 cm long. Right renal cortical thickness is 1.4 cm; left renal cortical thickness is 1.1 cm. Renal cortical echotexture is normal. No hydronephrosis. Large left renal calculi in the superior pole measuring 1.1 x 1 x 0.9 centimeter. Simple renal cysts on the left. Punctate calculi on the right. Bladder: Pre-void bladder volume is 9.0 mL. Post-void not performed. Pre-void images demonstrate no intraluminal masses or stones. On pre-void images, no ureteral jets are noted with color Doppler interrogation. (Of note, ureteral jets may not be detectable in up to 25% of cases due to insufficient differences in specific gravity between ureteral and bladder urine). Miscellaneous: No free pelvic fluid. IMPRESSION: Renal calculus in the left kidney without hydronephrosis measuring up to 1.1 centimeter. Dictated by: Leonel Horan M.D. on 04/03/2025 at 16:29 Approved by: Leonel Horan M.D. on 04/03/2025 at 16:34
== END ==
LOC: US 13:54
PROVIDERS: PCP Nurse Practitioner Family; Referring Provider Nurse Practitioner Family; Visit Provider Nurse Practitioner Family
DX: N18.32 Chronic kidney disease, stage 3b (principal); N20.0 Calculus of kidney; N28.1 Cyst of kidney, acquired
CPT/HCPCS: 76770

== ENCOUNTER → 2025-07-03 08:42 | Outpatient (CLI) | payer OTHER, SELFPAY ==
[2022-02-04 09:32] VITALS: BMI 23.0
== END ==
LOC: WC 08:53
PROVIDERS: PCP Nurse Practitioner Family; Referring Provider Podiatrist; Visit Provider Surgery
DX: L97.516 Non-pressure chronic ulcer of other part of right foot with bone involvement without evidence of necrosis (principal); I73.9 Peripheral vascular disease, unspecified; I10 Essential (primary) hypertension; B20 Human immunodeficiency virus [HIV] disease; Z79.01 Long term (current) use of anticoagulants; Z72.0 Tobacco use; Z79.2 Long term (current) use of antibiotics
CPT/HCPCS: 11044; 87070; 87075; 87077; 87186; 87205; 99204; 99214

== ENCOUNTER → 2025-07-04 17:25 | Outpatient (CLI) | payer OTHER, SELFPAY ==
[2022-02-04 09:32] VITALS: BMI 23.0
--- NOTE | 2025-07-04 17:28 | DI.RAD.S_ITS ---
PROCEDURE: XR FOOT RT MIN 3V INDICATIONS: Ulcer of R great toe, bone exposed. Eval for osteo. TECHNIQUE: 3 views of the foot were acquired. COMPARISON: , CR, XR TOE(S) RIGHT, 06/19/2025, 16:39. FINDINGS/IMPRESSION: Soft tissue ulcer of the dorsal 1st digit, without underlying bony lucency most consistent with osteomyelitis in this setting. Dictated by: Giovanni Mcelroy M.D. on 07/05/2025 at 12:46 Approved by: Giovanni Mcelroy M.D. on 07/05/2025 at 12:47
[2025-07-04 18:23] LABS: Add Manual Diff / Slide Review NO; Hematocrit 38.4 % (41-53); Hemoglobin 13.0 g/dL (13.5-17.5); Lymphocytes Absolute Auto 2500 /uL (1100-4500); Mean Corpuscular HGB Conc 33.8 % (30-36); Mean Corpuscular Hemoglobin 32.7 PG (26-34); Mean Corpuscular Volume 96.8 fL (80-100); Platelet Count 266 X10^3/uL (150-400)
[2025-07-04 18:44] LABS: Alanine Aminotransferase 17 IU/L (<50); Albumin 5.1 g/dL (3.5-5.0); Albumin Globulin Ratio 1.8 (1.0-2.8); Alkaline Phosphatase 57 U/L (38-126); Blood Urea Nitrogen 21 mg/dL (9-20); Calcium 9.8 mg/dL (8.4-10.2); Carbon Dioxide 20 mmol/L (22-32); Chloride 109 mmol/L (98-107); Estimated Glomerular Filt Rate 43 mL/min (>60); Globulin 2.9 g/dL (1.7-4.1); Glucose 82 mg/dL (70-99); HEMOLYSIS < 15 (0-50); Potassium 4.3 mmol/L (3.4-5.1); Sodium 140 mmol/L (137-145); Total Protein 8.0 g/dL (6.3-8.2)
== END ==
PROVIDERS: PCP Nurse Practitioner Family; Referring Provider Surgery; Visit Provider Surgery
DX: L97.514 Non-pressure chronic ulcer of other part of right foot with necrosis of bone (principal)
CPT/HCPCS: 36415; 73630; 80053; 85025; 85651; 86140

== ENCOUNTER → 2025-07-09 09:16 | Outpatient (CLI) | payer OTHER, SELFPAY ==
[2022-02-04 09:32] VITALS: BMI 23.0
== END ==
LOC: WC 09:18
PROVIDERS: PCP Nurse Practitioner Family; Referring Provider Podiatrist; Visit Provider Surgery
DX: L97.514 Non-pressure chronic ulcer of other part of right foot with necrosis of bone (principal); M86.171 Other acute osteomyelitis, right ankle and foot; I73.9 Peripheral vascular disease, unspecified; B20 Human immunodeficiency virus [HIV] disease
CPT/HCPCS: 11042; 99213

== ENCOUNTER → 2025-07-10 12:01 | Outpatient (CLI) | payer OTHER, SELFPAY ==
[2022-02-04 09:32] VITALS: BMI 23.0
--- NOTE | 2025-07-10 12:02 | DI.US.S_ITS ---
PROCEDURE: US ARTERIAL DUPLEX LE RT INDICATIONS: Non-healing wound, abnormal KRISHNA TECHNIQUE: Color and pulse Doppler interrogation was performed of the right lower extremity arterial system, with image documentation. COMPARISON: [facility], CT, CT IVP A/P W/WO, 03/23/2023, 12:32. This demonstrates the presence of a likely hemodynamically significant right common iliac artery stenosis. FINDINGS: Common femoral artery: 100 cm/sec, with monophasic flow. Deep femoral artery: 202 cm/sec, with monophasic flow. Proximal superficial femoral artery: 84 cm/sec, with monophasic flow. Mid superficial femoral artery: 39 cm/sec, with monophasic flow. Distal superficial femoral artery: 53 cm/sec, with monophasic flow. Popliteal artery: 24 cm/sec, with monophasic flow. Posterior tibial artery: 11 cm/sec, with monophasic flow. Anterior tibial artery/dorsalis pedis: 11/occluded cm/sec, with monophasic/occluded flow. Garsia-scale imaging description: Diffuse moderate scattered plaque throughout. Monophasic waveforms throughout. Diminished flow. IMPRESSION: 1. The presence of monophasic waveform in the common femoral confirms that there is a hemodynamically significant stenosis in the right common iliac, suggested in review of the CT IVP images. 2. Diffuse monophasic waveforms with diminished flow. Likely dorsalis pedis occlusion. These findings suggests that there is likely hemodynamically significant stenotic disease within the right leg arterial tree. Comment: Consider CT angiography of the aorta and lower extremity runoff vessels. Dictated by: Sudhakar Amaro M.D. on 07/12/2025 at 9:57 Approved by: Sudhakar Amaro M.D. on 07/12/2025 at 10:02
== END ==
LOC: US 12:02
PROVIDERS: PCP Nurse Practitioner Family; Referring Provider Podiatrist; Visit Provider Podiatrist
DX: S91.109A Unspecified open wound of unspecified toe(s) without damage to nail, initial encounter (principal); L97.512 Non-pressure chronic ulcer of other part of right foot with fat layer exposed; I70.201 Unspecified atherosclerosis of native arteries of extremities, right leg
CPT/HCPCS: 93926

== ENCOUNTER → 2025-07-17 13:55 | Outpatient (CLI) | payer OTHER, SELFPAY ==
[2022-02-04 09:32] VITALS: BMI 23.0
== END ==
LOC: WC 13:56
PROVIDERS: PCP Nurse Practitioner Family; Referring Provider Podiatrist; Visit Provider Surgery
DX: M86.171 Other acute osteomyelitis, right ankle and foot (principal); L97.516 Non-pressure chronic ulcer of other part of right foot with bone involvement without evidence of necrosis; L98.8 Other specified disorders of the skin and subcutaneous tissue; I73.9 Peripheral vascular disease, unspecified; Z79.01 Long term (current) use of anticoagulants; Z72.0 Tobacco use; Z79.52 Long term (current) use of systemic steroids; Z21 Asymptomatic human immunodeficiency virus [HIV] infection status; I10 Essential (primary) hypertension; J44.9 Chronic obstructive pulmonary disease, unspecified
CPT/HCPCS: 11042